=== PATIENT | female | born 1990 | race Caucasian/White ===

== ENCOUNTER 2020-08-09 08:03 | Outpatient (REF) | payer OTHER, SELFPAY | END 2020-08-09 08:04 | disposition home or self-care (01) | LOC: HO.LAB 08:03 | PROVIDERS: PCP Internal Medicine; Visit Provider Internal Medicine | DX: Z20.828 Contact with and (suspected) exposure to other viral communicable diseases (principal) | CPT/HCPCS: C9803; U0003 ==

== ENCOUNTER 2021-06-07 07:58 | Emergency (ER) | payer OTHER, SELFPAY ==
[2021-06-07 08:12] VITALS: BP 161/96; PULSE 84; RESP 16; TEMP 36.1; O2SAT 99; BMI 51.5
[2021-06-07 09:16] LABS: COVID-19 Test Negative (Negative); IDNOW Serial# 9DD0AD1C
--- NOTE | 2021-06-07 09:24 | ED.EAR ---
HPI - Ear Problem General Chief complaint: Ear Problems Stated complaint: hearing loss, congestion Time Seen by Provider: 06/07/21 08:32 Source: patient Mode of arrival: ambulatory Limitations: no limitations Related Data Previous Rx's Medication Instructions Recorded amoxicillin 875 mg-potassium 1 tab PO BID 7 Days #14 tab 12/20/20 clavulanate 125 mg tablet cetirizine 10 mg capsule (Zyrtec) 10 mg PO DAILY PRN #30 cap 12/20/20 ciprofloxacin 0.3 %-dexamethasone 4 drp OTIC (EARS) BID 7 Days #7.5 12/20/20 0.1 % ear drops,suspension ml (Ciprodex) amoxicillin 875 mg-potassium 1 tab PO BID #14 tab 06/07/21 clavulanate 125 mg tablet (Augmentin) ciprofloxacin 0.3 %-dexamethasone 4 drp OTIC (EARS) BID 7 Days #7.5 06/07/21 0.1 % ear drops,suspension ml (Ciprodex) Allergies Allergy/AdvReac Type Severity Reaction Status Date / Time TILAPIA Allergy Mild FACIAL RASH Uncoded 05/13/20 16:53 Review of Systems Review of Systems: Yes all other systems are reviewed and are negative Constitutional: Constitutional: Reports no additional constitutional complaints, Denies body ache(s), Denies chills, Denies fever(s), Denies headache(s) and Denies weakness Eyes: Eyes: Reports no additional eye complaints and Denies change in vision ENT: Reports system reviewed and no additional complaints, except as documented, Denies dizziness, Reports otalgia, Denies headache(s), Denies nasal congestion, Denies nasal discharge and Denies neck pain Cardiovascular: Cardiovascular: Reports no additional cardiovascular complaints, Denies chest pain, Denies leg edema and Denies dyspnea Respiratory: Respiratory: Reports no additional respiratory complaints, Denies cough and Denies dyspnea Gastrointestinal: Gastrointestinal: Reports no additional gastrointestinal complaints, Denies abdominal pain, Denies diarrhea, Denies nausea and Denies vomiting Genitourinary: Genitourinary: Reports no additional female genitourinary complaints and Denies urinary incontinence Musculoskeletal: Musculoskeletal: Reports no additional musculoskeletal complaints, Denies back pain, Denies arthralgias, Denies joint swelling, Denies neck pain, Denies numbness and Denies tingling Integumentary/Breasts: Skin/Breast: Reports system reviewed and no additional complaints, except as docu and Denies rash Neurologic: Reports system reviewed and no additional complaints, except as documented, Denies Abnormal speech present, Denies dizziness, Denies headache(s), Denies numbness, Denies tingling and Denies weakness PMFSH Past Medical History Attestation statement: The following information was validated with the patient. Source: old records reviewed and nursing notes reviewed Medical History No known health problems Social History Social History Advance Directives: No Physical Exam Vital Signs: Vital Signs: Last Vital Signs Temp 97.0 F 06/07/21 08:12 Pulse 84 06/07/21 08:12 Resp 16 06/07/21 08:12 BP 161/96 H 06/07/21 08:12 Pulse Ox 99 06/07/21 08:12 Body Mass Index 51.5 Const: General: cooperative, healthy appearing, comfortable and no acute distress Orientation/consciousness: patient oriented x3 Limitations: no limitations HENMT: Head: Yes normal to inspection Ears: hearing grossly normal bilaterally, TM normal on the left, mastoids normal, no periauricular adenopathy, Abnormal EAC present (Swelling, erythema) and TM abnormal (Bulging, erythema) General nose exam: Normal external nose present Face and sinus: Yes normal facial exam Mouth: Normal oral and palatal mucosa present Throat: Yes posterior oropharynx normal Eyes: General: appearance normal, both eyes and all related structures Pupils: Equal, round and reactive pupils present Neck: Neck: Yes normal visual inspection Chest: Chest palpation & inspection: normal inspection of the chest Resp: Effort & Inspection: normal respiratory effort Auscultation: clear to auscultation bilaterally Cardio: Rate: regular rate Rhythm: regular rhythm Peripheral pulses: Peripheral pulses 2+ throughout GI: Inspection: Yes normal to inspection Palpation (GI): Soft to palpation and nontender Auscultation: normal bowel sounds Back/Spine/Pelvis: Thoracic/Lumbar Spine: thoracic and lumbar spine normal to inspection Skin: General skin exam: no rashes or lesions noted Neuro: General: patient oriented x3, no focal motor deficits and normal sensation to monofilament Cranial nerves: Yes Equal, round and reactive pupils present Cognition (Neuro): normal cognition Speech: No Abnormal speech present Gait exam (Neuro): Normal gait present Motor exam (neuro): 5/5 motor strength present throughout Extrem: General: Yes normal to inspection Course Course Course Narrative: Right otitis media and otitis externa. Will need treatment. Low concern for mastoiditis with normal mastoid on exam. COVID test negative. Reviewed worrisome signs and symptoms of when to return to the emergency department. Comfortable discharge home. MDM - Ear Medical Records Attestation: I reviewed the patient's medical records. Lab Data Attestation: I reviewed the patient's lab results. Labs: Lab Results 06/07/21 Range/Units 08:49 COVID-19 (GABINO) Negative (Negative) COVID-19 Clin Com See Note Discharge Plan Discharge Clinical Impression: Otitis externa, Otitis media Patient Disposition: Home, Self-Care Instructions: Otitis Externa (ED), How to Use Ear Drops (ED), Ear Infection (ED) Additional Instructions: Your COVID test is negative Increase fluids, rest Follow-up with primary care as needed Prescriptions: New amoxicillin-pot clavulanate [Augmentin] 875-125 mg tablet 1 tab PO BID Qty: 14 RF: 0 ciprofloxacin-dexamethasone [Ciprodex] 0.3-0.1 % drops,suspension 4 drp otic (ears) BID 7 Days Qty: 7.5 RF: 0 No Action ciprofloxacin-dexamethasone [Ciprodex] 0.3-0.1 % drops,suspension 4 drp otic (ears) BID 7 Days Qty: 7.5 RF: 0 amoxicillin-pot clavulanate 875-125 mg tablet 1 tab PO BID 7 Days Qty: 14 RF: 0 Zyrtec 10 mg capsule 10 mg PO DAILY PRN (Reason: allergy symptoms) Qty: 30 RF: 0 Referrals: Glenna Burns MD [Primary Care Provider] - 2 days Interventions: ED Discharge Assessment Last Done: 06/07/21 09:26 Discharge Date/Time: 06/07/21 09:28
== END 2021-06-07 09:28 | disposition home or self-care (01) ==
PROVIDERS: Nurse Practitioner Family; Emergency Provider Emergency Medicine; PCP Internal Medicine
DX: H60.93 Unspecified otitis externa, bilateral (principal); H66.93 Otitis media, unspecified, bilateral; H91.93 Unspecified hearing loss, bilateral; Z20.822 Contact with and (suspected) exposure to COVID-19; Z79.899 Other long term (current) drug therapy
CPT/HCPCS: 36415; 87635; 99283

== ENCOUNTER 2021-06-17 16:41 | Emergency (ER) | payer OTHER, SELFPAY ==
[2021-06-17 17:01] VITALS: BP 144/100; PULSE 79; RESP 18; TEMP 36.7; O2SAT 98; BMI 51.5
--- NOTE | 2021-06-17 17:24 | ED_ITS ---
HPI - Ear Problem General Chief complaint: Ear Problems Stated complaint: ear pain Time Seen by Provider: 06/17/21 17:15 Source: patient Mode of arrival: ambulatory Limitations: no limitations History of Present Illness HPI Narrative: 31-year-old female presenting to the ED with complaints of worsening bilateral ear pain/swelling for the past 2 weeks worse today. Reports that she was seen here and prescribed antibiotic drops although they were too expensive 150 dollars therefore she did not purchase them and instead took the p.o. antibiotics Augmentin as prescribed. She reports that the p.o. antibiotics she finished a course although she is still having pain therefore she came here for further evaluation treatment. She denies any fevers, chills, neck pain/stiffness, cough, trouble swallowing or breathing or any other symptoms complaints or concerns at this time. MD Complaint: ear pain and ear discharge Location: bilateral Duration: constant Severity: severe Relieving factors: nothing Exacerbating factors: palpation Discharge from ear: yes - clear Associated symptoms ear: external ear tenderness and ear swelling Treatment prior to arrival: other (Was prescribed Augmentin on 06/07/2021 and finished course) Related Data Previous Rx's Medication Instructions Recorded amoxicillin 875 mg-potassium 1 tab PO BID 7 Days #14 tab 12/20/20 clavulanate 125 mg tablet cetirizine 10 mg capsule (Zyrtec) 10 mg PO DAILY PRN #30 cap 12/20/20 ciprofloxacin 0.3 %-dexamethasone 4 drp OTIC (EARS) BID 7 Days #7.5 12/20/20 0.1 % ear drops,suspension ml (Ciprodex) amoxicillin 875 mg-potassium 1 tab PO BID #14 tab 06/07/21 clavulanate 125 mg tablet (Augmentin) ciprofloxacin 0.3 %-dexamethasone 4 drp OTIC (EARS) BID 7 Days #7.5 06/07/21 0.1 % ear drops,suspension ml (Ciprodex) acetaminophen 300 mg-codeine 30 mg 1 tab PO Q8H PRN #10 tab 06/17/21 tablet cefdinir 300 mg capsule 300 mg PO BID 7 Days #14 cap 06/17/21 ofloxacin 0.3 % ear drops 10 drp OTIC (EARS) BID 14 Days ml 06/17/21 Allergies Allergy/AdvReac Type Severity Reaction Status Date / Time TILAPIA Allergy Mild FACIAL RASH Uncoded 05/13/20 16:53 Review of Systems Review of Systems: Constitutional : No Weight loss, No Fever, No Chills, No Night Sweats, No Fatigue, No Malaise ENT/Mouth : Positive bilateral ear pain/swelling/drainage, No Hearing loss, No Nasal Congestion, No Sinus Pain, No Hoarseness, No sore throat, No Rhinorrhea, No Swallowing Difficulty Eyes: No Eye Pain, No Swelling, No Redness, No Foreign Body, No Discharge, No Vision Changes Cardiovascular : No Chest Pain, No SOB, No Dyspnea on Exertion, No Orthopnea, No Edema, No Palpitations Respiratory : No Cough, No Sputum, No Wheezing, No Smoke Exposure, No Dyspnea Gastrointestinal : No Nausea, No Vomiting, No Diarrhea, No Constipation, No abdominal Pain, No Hematochezia, No Melena Genitourinary : no irregular bleeding, No Dysuria, No Urinary Frequency, No Hematuria, No Urinary Incontinence, No Urgency, No Flank Pain, No Urinary Flow Changes, No Hesitancy Musculoskeletal : No joint pain, No Myalgias, No Joint Swelling Skin : No Skin Lesions, No rash Neuro : No Weakness, No Numbness, No Paresthesias, No Loss of Consciousness, No Dizziness, No Headache Psych : No Anxiety/Panic, No Depression, No SI/HI/AH/VH, No Social Issues, Heme/Lymph: No Bruising, No Bleeding,No Lymphadenopathy Endocrine : No Polyuria, No Polydipsia, No Temperature Intolerance Yes all other systems are reviewed and are negative [facility] Past Medical History Attestation statement: The following information was validated with the patient. Medical History No known health problems Social History Social History Advance Directives: No Advance Directives Information Provided: Yes Patient : No Physical Exam Vital Signs: Vital Signs: Last Vital Signs Temp 98.0 F 06/17/21 17:01 Pulse 79 06/17/21 17:01 Resp 18 06/17/21 17:01 BP 144/100 H 06/17/21 17:01 Pulse Ox 98 06/17/21 17:01 Body Mass Index 51.5 vital signs have been reviewed as normal and appeared to be correct. Blood pressure hypertensive 144/100. Heart rate normal. Respiration rate normal. Temperature normal. Oxygen saturation normal. Appearance: Alert. Oriented X3. No acute distress. Head: Normal external exam. Normocephalic. Atraumatic. Eyes: PERRLA. EOMI. Conjunctiva and sclera normal. Eyelids normal. ENT: Patient with tenderness up patient to bilateral tragus and manipulation of the pinna with external ear canals edematous consistent with otitis externa. Although I am able to see bilateral tympanic membranes and they are intact no signs of otitis media. Pharynx normal. Uvula midline. Moist mucous membranes. No trismus noted. No drooling noted. No muffled voice noted. Neck: Normal inspection. Neck supple. FROM. No adenopathy. No meningeal signs. No neck mass noted. CVS: Normal heart rate and rhythm. Respiratory: No respiratory distress. Painless inspiration. Back: Full range of motion noted. No rashes/lesion/induration/fluctuance or signs of infection noted. Skin: Skin warm and dry. Normal skin color. Normal skin turgor. No rashes/lesions/lacerations noted. Extremities: Extremities exhibit normal range of motion. Extremities nontender. Neuro: Oriented X 3. No motor deficit. No sensory deficit. Reflexes normal. Normal steady gait. No focal neuro deficits noted. Vascular: + radial pulses Normal cap refill. No cyanosis noted to upper extremity nails Course Course Course Narrative: 31-year-old female presenting to the ED with complaints of worsening bilateral ear pain/swelling for the past 2 weeks worse today. Reports that she was seen here and prescribed antibiotic drops although they were too expensive 150 dollars therefore she did not purchase them and instead took the p.o. antibiotics Augmentin as prescribed. She reports that the p.o. antibiotics she finished a course although she is still having pain therefore she came here for further evaluation treatment. She denies any fevers, chills, neck pain/stiffness, cough, trouble swallowing or breathing or any other symptoms complaints or concerns at this time. On exam patient has bilateral otitis externa she does not need a ear wick at this time. Will DC home with a different prescription for otitis externa and I explained to the patient if the prescription is too expensive to have the pharmacist call us back so we can try to figure out a new prescription that is affordable to her or covered by her insurance. Along with instructions return if any new or worsening symptoms. Patient understands agrees with this plan. MDM - Ear Medical Records Attestation: I reviewed the patient's medical records. Discharge Plan Discharge Clinical Impression: Otitis externa Patient Disposition: Home, Self-Care Instructions: Otitis Externa (ED), How to Use Ear Drops (ED) Prescriptions: New ofloxacin 0.3 % drops 10 drp otic (ears) BID 14 Days RF: 0 cefdinir 300 mg capsule 300 mg PO BID 7 Days Qty: 14 RF: 0 acetaminophen-codeine 300-30 mg tablet 1 tab PO Q8H PRN (Reason: pain) Qty: 10 RF: 0 No Action amoxicillin-pot clavulanate [Augmentin] 875-125 mg tablet 1 tab PO BID Qty: 14 RF: 0 ciprofloxacin-dexamethasone [Ciprodex] 0.3-0.1 % drops,suspension 4 drp otic (ears) BID 7 Days Qty: 7.5 RF: 0 ciprofloxacin-dexamethasone [Ciprodex] 0.3-0.1 % drops,suspension 4 drp otic (ears) BID 7 Days Qty: 7.5 RF: 0 amoxicillin-pot clavulanate 875-125 mg tablet 1 tab PO BID 7 Days Qty: 14 RF: 0 Zyrtec 10 mg capsule 10 mg PO DAILY PRN (Reason: allergy symptoms) Qty: 30 RF: 0 Referrals: Kulwinder Macdonald [Physician] - 2 days (Call to make a follow-up appointment within next week) Stand Alone Forms: Work/School Release Print Language: Citizen Of [place]
== END 2021-06-17 17:49 | disposition home or self-care (01) ==
PROVIDERS: Emergency Provider Internal Medicine
DX: H60.93 Unspecified otitis externa, bilateral (principal); H92.03 Otalgia, bilateral; Z79.899 Other long term (current) drug therapy
CPT/HCPCS: 99283

== ENCOUNTER 2022-10-24 21:33 | Emergency (ER) | payer OTHER, SELFPAY ==
--- NOTE | ~2022-10-24 | US_ITS ---
EXAMINATION: US VENOUS WITH DOPPLER UPPER EXTREMITY, LEFT CLINICAL INFORMATION: Arm pain, question DVT COMPARISON: None TECHNIQUE: Ultrasound of the upper extremity is performed using compression sonography and color and pulse Doppler flow with assessment of augmentation of flow. There is also imaging and Doppler assessment of the jugular and subclavian veins. Spectral analysis with color-flow imaging is performed. FINDINGS: Respiratory variation, normal compression, and augmented flow are noted throughout the upper extremity including the axillary, brachial, cubital, and radial and ulnar veins. There is normal flow in the internal jugular and subclavian veins. There is no visible deep or superficial thrombophlebitis. If the patient's symptoms progress, a followup ultrasound in 5 -7 days might be of value to exclude proximal propagation from a nonvisualized distal arm vein. US/US venous duplex UE LT IMPRESSION: No DVT demonstrated in the left upper extremity.
[2022-10-24 22:13] VITALS: BP 147/80; PULSE 98; RESP 18; TEMP 36.8; O2SAT 97; BMI 56.5
--- NOTE | 2022-10-25 03:12 | ED.EXTPRO ---
HPI - Extremity Problem General Chief complaint: Extremity Problem Stated complaint: tightness in left arm Time Seen by Provider: 10/25/22 03:08 Source: patient Mode of arrival: ambulatory Limitations: no limitations History of Present Illness HPI Narrative: Patient no significant past medical history not on any estrogen and feeling tightness in the left arm since 19:00 yesterday had history of similar feeling a month ago which lasted for less than a day no swelling of the arm no trauma no neck pain muscular pain otherwise does feels tight inside the left arm no chest pain , no shortness patient father has a history of PE Related Data Previous Rx's Medication Instructions Recorded amoxicillin 875 mg-potassium 1 tab PO BID 7 days #14 tabs 12/20/20 clavulanate 125 mg tablet cetirizine 10 mg capsule (Zyrtec) 10 mg PO DAILY PRN allergy 12/20/20 symptoms #30 caps ciprofloxacin 0.3 %-dexamethasone 4 drp otic (ears) BID 7 days #7.5 12/20/20 0.1 % ear drops,suspension mL (Ciprodex) amoxicillin 875 mg-potassium 1 tab PO BID #14 tabs 06/07/21 clavulanate 125 mg tablet (Augmentin) ciprofloxacin 0.3 %-dexamethasone 4 drp otic (ears) BID 7 days #7.5 06/07/21 0.1 % ear drops,suspension mL (Ciprodex) acetaminophen 300 mg-codeine 30 mg 1 tab PO Q8H PRN pain #10 tabs 06/17/21 tablet cefdinir 300 mg capsule 300 mg PO BID otitis 7 days #14 06/17/21 caps ofloxacin 0.3 % ear drops 10 drp otic (ears) BID 14 days 06/17/21 ibuprofen 600 mg tablet 600 mg PO Q6H PRN fever or pain 10/25/22 #30 tabs Allergies Allergy/AdvReac Type Severity Reaction Status Date / Time TILAPIA Allergy Mild FACIAL RASH Uncoded 05/13/20 16:53 Review of Systems Review of Systems: Yes all other systems are reviewed and are negative PMFSH Past Medical History Medical History No known health problems Social History Social History Alcohol intake: never Smoked in Last 30 Days: No Use of substances other than those prescribed or required for medical reasons: No Advance Directives: No Advance Directives Information Provided: No Patient : No Physical Exam Vital Signs: Vital Signs: Last Vital Signs Temp 98.2 F 10/24/22 22:13 Pulse 98 10/24/22 22:13 Resp 18 10/24/22 22:13 BP 147/80 H 10/24/22 22:13 Pulse Ox 97 10/24/22 22:13 O2 Del Method 10/24/22 22:13 BMI result Body Mass Index 56.5 Appearance: Alert. Oriented X3. No acute distress. Neck: Normal inspection. Neck supple. No midline tenderness CVS: Normal heart rate and rhythm. Pulses normal. Respiratory: No respiratory distress. Equal air entry bilateral, Abdomen: Soft and nontender. Bowel sounds are present, Skin: Skin warm and dry. Normal skin color. Normal skin turgor. Extremities: No lower extremity edema. No calf tenderness, deep tenderness left arm no swelling noticed neurovascular intact Neuro: Oriented X 3. No motor deficit. No sensory deficit Extrem: Shoulder/upper arm images: 1. Deep tenderness left arm no swelling neurovascular intact Medical Decision Making Medical Decision Making MDM Narrative: Doppler negative for DVT in left arm clinically musculoskeletal pain discharge patient home on ibuprofen Differential Diagnosis Deep vein thrombosis/neurologic/musculoskeletal Discharge Plan Discharge Clinical Impression: Musculoskeletal pain of left upper extremity Patient Disposition: Home, Self-Care Instructions: Musculoskeletal Pain (ED) Additional Instructions: Pain in left arm is likely musculoskeletal take ibuprofen for pain Prescriptions: New ibuprofen 600 mg tablet 600 mg PO Q6H PRN (Reason: fever or pain) Qty: 30 0RF No Action amoxicillin-pot clavulanate [Augmentin] 875-125 mg tablet 1 tab PO BID Qty: 14 0RF ciprofloxacin-dexamethasone [Ciprodex] 0.3-0.1 % drops,suspension 4 drp otic (ears) BID 7 Days Qty: 7.5 0RF ofloxacin 0.3 % drops 10 drp otic (ears) BID 14 Days 0RF cefdinir 300 mg capsule 300 mg PO BID 7 Days Qty: 14 0RF acetaminophen-codeine 300-30 mg tablet 1 tab PO Q8H PRN (Reason: pain) Qty: 10 0RF ciprofloxacin-dexamethasone [Ciprodex] 0.3-0.1 % drops,suspension 4 drp otic (ears) BID 7 Days Qty: 7.5 0RF amoxicillin-pot clavulanate 875-125 mg tablet 1 tab PO BID 7 Days Qty: 14 0RF Zyrtec 10 mg capsule 10 mg PO DAILY PRN (Reason: allergy symptoms) Qty: 30 0RF Interventions: ED Discharge Assessment Last Done: 10/25/22 04:58 Discharge Date/Time: 10/25/22 04:58
== END 2022-10-25 04:58 | disposition home or self-care (01) ==
PROVIDERS: Emergency Provider Internal Medicine
DX: M79.18 Myalgia, other site (principal); M79.602 Pain in left arm
CPT/HCPCS: 93971; 99284

== ENCOUNTER 2022-12-21 21:42 | Emergency (ER) | payer OTHER, SELFPAY ==
[2022-12-21 21:45] VITALS: BP 136/94; PULSE 87; RESP 17; TEMP 36.5; O2SAT 99; BMI 54.9
[2022-12-21 22:08] LABS: MANUAL DIFF FLAG NO
[2022-12-21 22:09] LABS: Basophils Absolute Auto 0.1 X10*3/uL (0.0-0.2); Basophils Percent Auto 0.6 % (0-2); Eosinophils Absolute Auto 0.3 X10*3/uL (0.0-0.4); Eosinophils Percent Auto 2.4 % (0-4); Hematocrit 37.6 % (37.0-47.0); Hemoglobin 11.7 g/dl (12.0-16.0); Imm Gran Abs Auto 0.06 X10*3/uL (0.00-0.03); Imm Gran Pct Auto 0.5 % (0.0-0.4); Lymphocytes Absolute Auto 3.4 X10*3/uL (1.2-4.9); Lymphocytes Percent Auto 26.3 % (20-40); Mean Corpuscular HGB Conc 31.1 g/dl (31.0-35.0); Mean Corpuscular Hemoglobin 24.5 pg (27.0-33.0); Mean Corpuscular Volume 78.8 fL (80.0-98.0); Mean Platelet Volume 9.6 fL (9.4-12.3); Monocytes Absolute Auto 0.8 X10*3/uL (0.1-1.2); Neutrophils Absolute Auto 8.3 x10*3/uL (2.0-8.3); Neutrophils Percent Auto 64.2 % (45-73); Platelet Count 466 X10*3/uL (160-400); Red Blood Count 4.77 X10*6/uL (4.20-5.50); Red Cell Distribution Width 14.3 % (11.0-16.0); White Blood Count 12.9 X10*3/uL (4.8-10.8)
[2022-12-21 22:26] LABS: Alanine Aminotransferase 31 U/L (0-31); Albumin Level 4.2 g/dL (3.5-5.0); Alkaline Phosphatase 91 U/L (39-117); Anion Gap 13 (12-20); Aspartate Amino Transferase 22 U/L (5-31); Bilirubin Direct 0.1 mg/dL (0.0-0.5); Bilirubin Total 0.3 mg/dL (0.0-1.0); Blood Urea Nitrogen 12 mg/dL (9-16); Calcium 9.6 mg/dL (8.4-10.2); Carbon Dioxide 27 mmol/L (22-29); Chloride 105 mmol/L (96-108); Creatinine Clr Calc Pharmacy 156.9; Estimated Glomerular Filt Rate > 60; Glucose Random 122 mg/dL (60-115); Lipase 17 U/L (8-78); Potassium 4.3 mmol/L (3.3-5.1); Sodium 141 mmol/L (135-145); Total Protein 7.3 g/dL (6.5-8.0)
--- NOTE | 2022-12-22 00:20 | PC.NURSE ---
c/o abd pain, denies n/v h/o anxiety no apparent distress [id number]
[2022-12-22 00:21] LABS: Appearance Urine Clear; Color Urine Yellow; Glucose Urine UA Negative (Negative); Leukocyte Esterase Urine Negative (Negative); Nitrite Urine Negative (Negative); Specific Gravity - Urine 1.025 (1.005-1.025); Urine Blood Negative (Negative); Urine Ketones Trace mg/dL (Negative); Urine Protein Negative (Neg-Trace)
[2022-12-22 00:23] LABS: UPreg QC Valid YES; Urine Pregnancy NEGATIVE (NEGATIVE)
[2022-12-22 00:39] VITALS: BP 133/92; PULSE 84; RESP 15; TEMP 36.4; O2SAT 99
--- NOTE | 2022-12-22 00:39 | ED.GENADULT ---
HPI - General Adult General Chief complaint: Abdominal Pain Stated complaint: Abdominal/Left Side Pain Time Seen by Provider: 12/22/22 00:02 Source: patient, RN notes reviewed and old records reviewed Mode of arrival: ambulatory Limitations: no limitations History of Present Illness HPI narrative: 32-year-old female presents for evaluation of abdominal pain. Patient reports left-sided abdominal pain that started about 1 week ago. She has intermittent ?throbbing pains. She states ?it feels like baby cakes, but I know I am not . ? Denies associated symptoms including nausea vomiting, diarrhea, constipation Denies any fevers, chills Denies any previous abdominal surgeries. Currently she does not experience the pain. The patient does endorse increased anxiety Related Data Previous Rx's Medication Instructions Recorded amoxicillin 875 mg-potassium 1 tab PO BID 7 days #14 tabs 12/20/20 clavulanate 125 mg tablet cetirizine 10 mg capsule (Zyrtec) 10 mg PO DAILY PRN allergy 12/20/20 symptoms #30 caps ciprofloxacin 0.3 %-dexamethasone 4 drp otic (ears) BID 7 days #7.5 12/20/20 0.1 % ear drops,suspension mL (Ciprodex) amoxicillin 875 mg-potassium 1 tab PO BID #14 tabs 06/07/21 clavulanate 125 mg tablet (Augmentin) ciprofloxacin 0.3 %-dexamethasone 4 drp otic (ears) BID 7 days #7.5 06/07/21 0.1 % ear drops,suspension mL (Ciprodex) acetaminophen 300 mg-codeine 30 mg 1 tab PO Q8H PRN pain #10 tabs 06/17/21 tablet cefdinir 300 mg capsule 300 mg PO BID otitis 7 days #14 06/17/21 caps ofloxacin 0.3 % ear drops 10 drp otic (ears) BID 14 days 06/17/21 ibuprofen 600 mg tablet 600 mg PO Q6H PRN fever or pain 10/25/22 #30 tabs Allergies Allergy/AdvReac Type Severity Reaction Status Date / Time TILAPIA Allergy Mild FACIAL RASH Uncoded 05/13/20 16:53 Review of Systems Constitutional: Constitutional: Denies body ache(s), Denies chills, Denies fever(s) and Denies headache(s) ENT: Denies dizziness and Denies headache(s) Cardiovascular: Cardiovascular: Denies chest pain and Denies dyspnea Respiratory: Respiratory: Denies cough and Denies dyspnea Gastrointestinal: Gastrointestinal: Reports abdominal pain, Denies nausea and Denies vomiting Genitourinary: Genitourinary: Denies dysuria Musculoskeletal: Musculoskeletal: Denies back pain Neurologic: Denies dizziness and Denies headache(s) Psychiatric: Psychiatric: Reports anxiety PMFSH Past Medical History Medical History No known health problems Social History Social History Alcohol intake: never Advance Directives: No Advance Directives Information Provided: No Physical Exam ED Vital Signs: Vital Signs - 24 hr 12/21/22 21:45 Temperature 97.7 F Pulse Rate 87 Respiratory Rate 17 Blood Pressure 136/94 H Pulse Oximetry 99 Oxygen Delivery Method Room Air BMI result Body Mass Index 54.9 Const General: healthy appearing, comfortable, no acute distress, alert and awake Nutritional Appearance: well nourished Orientation/consciousness: patient oriented x3 HENMT Head: Yes normocephalic and Yes atraumatic Eyes Eyelids: Yes eyelids normal Conjunctivae: conjunctivae normal Sclerae: sclerae normal Corneas: corneas normal Pupils: Equal, round and reactive pupils present EOM: EOMs intact bilaterally Resp Effort & Inspection: normal respiratory effort, able to speak in complete sentences and not labored Cardio Rate: regular rate Rhythm: regular rhythm GI Other: No palpable masses Inspection: No distended Palpation (GI): Soft to palpation, not firm, nontender, no guarding and not rigid Auscultation: normoactive bowel sounds Skin General skin exam: no rashes or lesions noted and elasticity normal Neuro General: patient oriented x3 Cranial nerves: Yes Equal, round and reactive pupils present and Yes Bilaterally intact EOM present Cognition (Neuro): normal cognition Extrem Other: Moving all extremities well without any obvious deformities Medical Decision Making Medical Decision Making MDM Narrative: Patient sources increased anxiety related to buying a new home as well as being a single mother. Her labs are significant for a very mild leukocytosis. Otherwise labs are without any significant abnormalities. Patient abdomen is soft nondistended nontender and there are no palpable masses. Patient was reassured. Her symptoms may be related to muscle spasms that she describes as ?baby kicks. ? Patient expressed an interest in outpatient mental health counseling. I provided her a list with outpatient offices for counseling Differential Diagnosis Abdominal pain Anxiety GERD Gastroenteritis Lab Data 12/21/22 22:01 12/21/22 22:01 Labs: Lab Results 12/21/22 12/21/22 12/22/22 Range/Units 22:01 22:01 00:10 WBC 12.9 H (4.8-10.8) X10*3/uL RBC 4.77 (4.20-5.50) X10*6/uL Hgb 11.7 L (12.0-16.0) g/dl Hct 37.6 (37.0-47.0) % MCV 78.8 L (80.0-98.0) fL MCH 24.5 L (27.0-33.0) pg MCHC 31.1 (31.0-35.0) g/dl RDW 14.3 (11.0-16.0) % Plt Count 466 H (160-400) X10*3/uL MPV 9.6 (9.4-12.3) fL Immature Gran % (Auto) 0.5 H (0.0-0.4) % Neut % (Auto) 64.2 (45-73) % Lymph % (Auto) 26.3 (20-40) % Spink % (Auto) 6.0 (2-11) % Eos % (Auto) 2.4 (0-4) % Baso % (Auto) 0.6 (0-2) % Lymph # (Auto) 3.4 (1.2-4.9) X10*3/uL Spink # (Auto) 0.8 (0.1-1.2) X10*3/uL Eos # (Auto) 0.3 (0.0-0.4) X10*3/uL Baso # (Auto) 0.1 (0.0-0.2) X10*3/uL Abs Immat Gran (auto) 0.06 H (0.00-0.03) X10*3/uL Absolute Neuts (auto) 8.3 (2.0-8.3) x10*3/uL Absolute Nucleated RBC 0.000 (0.0-0.012) X10*3/uL Nucleated RBC % (auto) 0.0 (0.0-0.2) /100WBC Sodium 141 (135-145) mmol/L Potassium 4.3 (3.3-5.1) mmol/L Chloride 105 (96-108) mmol/L Carbon Dioxide 27 (22-29) mmol/L Anion Gap 13 (12-20) BUN 12 (9-16) mg/dL Creatinine 0.75 (0.5-1.4) mg/dL Estim Creat Clear Calc 156.9 Estimated GFR > 60 Random Glucose 122 H (60-115) mg/dL Calcium 9.6 (8.4-10.2) mg/dL Total Bilirubin 0.3 (0.0-1.0) mg/dL Direct Bilirubin 0.1 (0.0-0.5) mg/dL AST 22 (5-31) U/L ALT 31 (0-31) U/L Alkaline Phosphatase 91 (39-117) U/L Total Protein 7.3 (6.5-8.0) g/dL Albumin 4.2 (3.5-5.0) g/dL Lipase 17 (8-78) U/L Urine Color Yellow Urine Appearance Clear Urine pH 6.0 (5.0-9.0) Ur Specific [place] 1.025 (1.005-1.025) Urine Protein Negative (Neg-Trace) mg/dL Urine Glucose (UA) Negative (Negative) mg/dL Urine Ketones Trace (Negative) mg/dL Urine Blood Negative (Negative) Urine Nitrite Negative (Negative) Ur Leukocyte Esterase Negative (Negative) Urine Test (NEGATIVE) 12/22/22 Range/Units 00:10 WBC (4.8-10.8) X10*3/uL RBC (4.20-5.50) X10*6/uL Hgb (12.0-16.0) g/dl Hct (37.0-47.0) % MCV (80.0-98.0) fL MCH (27.0-33.0) pg MCHC (31.0-35.0) g/dl RDW (11.0-16.0) % Plt Count (160-400) X10*3/uL MPV (9.4-12.3) fL Immature Gran % (Auto) (0.0-0.4) % Neut % (Auto) (45-73) % Lymph % (Auto) (20-40) % Spink % (Auto) (2-11) % Eos % (Auto) (0-4) % Baso % (Auto) (0-2) % Lymph # (Auto) (1.2-4.9) X10*3/uL Spink # (Auto) (0.1-1.2) X10*3/uL Eos # (Auto) (0.0-0.4) X10*3/uL Baso # (Auto) (0.0-0.2) X10*3/uL Abs Immat Gran (auto) (0.00-0.03) X10*3/uL Absolute Neuts (auto) (2.0-8.3) x10*3/uL Absolute Nucleated RBC (0.0-0.012) X10*3/uL Nucleated RBC % (auto) (0.0-0.2) /100WBC Sodium (135-145) mmol/L Potassium (3.3-5.1) mmol/L Chloride (96-108) mmol/L Carbon Dioxide (22-29) mmol/L Anion Gap (12-20) BUN (9-16) mg/dL Creatinine (0.5-1.4) mg/dL Estim Creat Clear Calc Estimated GFR Random Glucose (60-115) mg/dL Calcium (8.4-10.2) mg/dL Total Bilirubin (0.0-1.0) mg/dL Direct Bilirubin (0.0-0.5) mg/dL AST (5-31) U/L ALT (0-31) U/L Alkaline Phosphatase (39-117) U/L Total Protein (6.5-8.0) g/dL Albumin (3.5-5.0) g/dL Lipase (8-78) U/L Urine Color Urine Appearance Urine pH (5.0-9.0) Ur Specific [place] (1.005-1.025) Urine Protein (Neg-Trace) mg/dL Urine Glucose (UA) (Negative) mg/dL Urine Ketones (Negative) mg/dL Urine Blood (Negative) Urine Nitrite (Negative) Ur Leukocyte Esterase (Negative) Urine Test NEGATIVE (NEGATIVE) Discharge Plan Discharge Clinical Impression: Abdominal pain Patient Disposition: Home, Self-Care Instructions: Abdominal Pain (ED) Additional Instructions: Your blood work was within normal limits. The vital signs were stable. Your abdominal exam is reassuring Follow-up with your primary doctor and outpatient counseling resources Prescriptions: No Action ibuprofen 600 mg tablet 600 mg PO Q6H PRN (Reason: fever or pain) Qty: 30 0RF amoxicillin-pot clavulanate [Augmentin] 875-125 mg tablet 1 tab PO BID Qty: 14 0RF ciprofloxacin-dexamethasone [Ciprodex] 0.3-0.1 % drops,suspension 4 drp otic (ears) BID 7 Days Qty: 7.5 0RF ofloxacin 0.3 % drops 10 drp otic (ears) BID 14 Days 0RF cefdinir 300 mg capsule 300 mg PO BID 7 Days Qty: 14 0RF acetaminophen-codeine 300-30 mg tablet 1 tab PO Q8H PRN (Reason: pain) Qty: 10 0RF ciprofloxacin-dexamethasone [Ciprodex] 0.3-0.1 % drops,suspension 4 drp otic (ears) BID 7 Days Qty: 7.5 0RF amoxicillin-pot clavulanate 875-125 mg tablet 1 tab PO BID 7 Days Qty: 14 0RF Zyrtec 10 mg capsule 10 mg PO DAILY PRN (Reason: allergy symptoms) Qty: 30 0RF
--- NOTE | 2022-12-22 01:11 | PC.NURSE ---
no apparent distress discharge instructions given and explained aox4 pt able to ambulate independently and safely
== END 2022-12-22 01:11 | disposition home or self-care (01) ==
PROVIDERS: Emergency Provider Emergency Medicine; PCP Internal Medicine
DX: R10.9 Unspecified abdominal pain (principal)
CPT/HCPCS: 36415; 80048; 80076; 81003; 81025; 83690; 85025; 99283; 99284

== ENCOUNTER 2023-02-02 11:45 | Outpatient (REF) | payer OTHER, SELFPAY ==
[2023-02-02 11:55] LABS: MANUAL DIFF FLAG NO
[2023-02-02 12:17] LABS: Basophils Absolute Auto 0.1 X10*3/uL (0.0-0.2); Basophils Percent Auto 0.8 % (0-2); Eosinophils Absolute Auto 0.4 X10*3/uL (0.0-0.4); Eosinophils Percent Auto 3.1 % (0-4); Hematocrit 39.9 % (37.0-47.0); Hemoglobin 12.2 g/dl (12.0-16.0); Imm Gran Abs Auto 0.04 X10*3/uL (0.00-0.03); Imm Gran Pct Auto 0.3 % (0.0-0.4); Lymphocytes Absolute Auto 3.2 X10*3/uL (1.2-4.9); Lymphocytes Percent Auto 27.7 % (20-40); Mean Corpuscular HGB Conc 30.6 g/dl (31.0-35.0); Mean Corpuscular Hemoglobin 24.2 pg (27.0-33.0); Mean Platelet Volume 10.3 fL (9.4-12.3); Monocytes Absolute Auto 0.6 X10*3/uL (0.1-1.2); Monocytes Percent Auto 5.1 % (2-11); Neutrophils Absolute Auto 7.3 x10*3/uL (2.0-8.3); Platelet Count 464 X10*3/uL (160-400); Red Blood Count 5.05 X10*6/uL (4.20-5.50); Red Cell Distribution Width 14.3 % (11.0-16.0); White Blood Count 11.6 X10*3/uL (4.8-10.8)
[2023-02-02 12:40] LABS: Estimated Average Glucose 114 mg/dL; Hemoglobin A1c % 5.6 %
[2023-02-02 12:53] LABS: Alanine Aminotransferase 28 U/L (0-31); Albumin Level 4.2 g/dL (3.5-5.0); Alkaline Phosphatase 88 U/L (39-117); Anion Gap 11 (12-20); Aspartate Amino Transferase 24 U/L (5-31); Bilirubin Total 0.5 mg/dL (0.0-1.0); Blood Urea Nitrogen 12 mg/dL (9-16); Carbon Dioxide 26 mmol/L (22-29); Chloride 106 mmol/L (96-108); Cholesterol 176 mg/dL; Estimated Glomerular Filt Rate > 60; Glucose Fasting 83 mg/dL (60-99); HDL Cholesterol 48 mg/dL; LDL Cholesterol Calculated 102 mg/dl; Potassium 4.3 mmol/L (3.3-5.1); Sodium 139 mmol/L (135-145); Total Protein 7.6 g/dL (6.5-8.0); Triglycerides 133 mg/dL
[2023-02-02 13:10] LABS: Vitamin D 25-OH Total 20.9 ng/mL (>30)
== END 2023-02-02 11:46 | disposition home or self-care (01) ==
LOC: HO.LAB 11:45
PROVIDERS: PCP Nurse Practitioner Family; Visit Provider Nurse Practitioner Family
DX: Z13.0 Encounter for screening for diseases of the blood and blood-forming organs and certain disorders involving the immune mechanism (principal); Z13.21 Encounter for screening for nutritional disorder; Z13.29 Encounter for screening for other suspected endocrine disorder; Z13.220 Encounter for screening for lipoid disorders; Z83.3 Family history of diabetes mellitus
CPT/HCPCS: 36415; 80053; 80061; 82306; 83036; 84443; 85025

== ENCOUNTER 2023-02-09 08:07 | Outpatient (REF) | payer OTHER, SELFPAY ==
[2023-02-09 09:07] LABS: Iron 32 mcg/dL (30-160); Percent Iron Saturation 8 % (15-50); Total Iron Binding Capacity 378 mcg/dL (228-428); Unsaturated Iron Binding 346 ug/dL
[2023-02-09 09:15] LABS: Ferritin 48 ng/mL (10-122); Vitamin D 25-OH Total 25.5 ng/mL (>30)
== END 2023-02-09 08:08 | disposition home or self-care (01) ==
LOC: HO.LAB 08:07
PROVIDERS: PCP Internal Medicine; Visit Provider Nurse Practitioner Family
DX: E55.9 Vitamin D deficiency, unspecified (principal); D50.9 Iron deficiency anemia, unspecified
CPT/HCPCS: 36415; 82306; 82728; 83540

== ENCOUNTER → 2023-03-12 08:20 | Outpatient (BNVA) | payer OTHER, SELFPAY | PROVIDERS: PCP Internal Medicine; Visit Provider Physician Assistant Surgical ==

== ENCOUNTER 2023-03-22 09:23 | Outpatient (AMB) | payer OTHER, SELFPAY ==
--- NOTE | 2023-03-22 09:24 | A.OFFVIS_ITS ---
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 She has gained more weight than she is happy with and has reached the point where she is feeling more ready to do something about it she recently did the paperwork for the intake at the bariatric weight management program and she is feeling more motivated to try and deal with this because she wants to be around for her kids. She is not sexually active and does not need control at this time she does get regular periods she is having lots more negative side effects from her weight including back ache and skin challenges from her thighs rubbing etc. she feels it is time to do something about it. Has tried so many times in the past and has become discouraged when she has not seen success. 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 [facility] Medical History (Updated 03/22/23 @ 10:31 by Lorna Moreno CNM) Family history of diabetes mellitus Surgical History History of D&C Family History Other Family history of diabetes mellitus Social History Household Members: Family and Children Housing: House Alcohol intake: current Alcohol intake frequency: holidays/special occasions only Patient Tobacco Use Status: Never used Tobacco e-Cigarette/Vaping Use: Never Used Second Hand Smoke Exposure: No service: No Current occupational status: employed Current occupation: [employer] Cognitive needs: No Hearing needs: No Vision needs: No Female Reproductive History Menstrual Age of Menarche: 10 Date of last menstrual period: 03/15/23 Total pregnancies: 3 Number of Living Children: 3 Date of last pap smear: 07/07/19 (wnl) History of abnormal pap smear: Yes (ASCUS) Physical Exam Vital Signs: Last Vital Signs BP 128/84 03/22/23 09:25 BMI result Body Mass Index 55.1 Const General: healthy appearing, comfortable, no acute distress, well developed and alert Nutritional Appearance: average body habitus Orientation/consciousness: patient oriented x3 Limitations: no limitations HEENT Head: Yes normocephalic Neck Neck: Yes normal visual inspection Chest Chest palpation & inspection: normal inspection of the chest Breast/axilla inspection: normal inspection of the breasts and normal inspection of the axillae Breast/axilla palpation: normal palpation of the breasts and normal palpation of the axillae Resp Effort & Inspection: normal respiratory effort GI Inspection: Yes normal to inspection, No Abdominal wall edema and No distended Palpation (GI): Soft to palpation and nontender General: Yes bladder normal to palpation External Female Exam: normal external appearance and normal appearance of the urethra Speculum Exam - Vagina: normal appearance of the vagina, normal palpation and normal vaginal discharge Speculum Exam - Cervix: normal appearance of the cervix, normal palpation and nontender Bimanual exam- vagina & uterus: normal bimanual exam, normal palpation, uterine size normal, bladder normal to palpation, consistency normal, normal palpation, uterine mobility normal, uterine shape normal, No Cervical tenderness present, non-tender and no cervical motion tenderness Bimanual Exam- Adnexa, other: normal adnexae, no masses, normal and No adnexal tenderness Neuro General: patient oriented x3 Assessment & Plan Assessment & Plan (1) Morbid obesity with BMI of 50.0-59.9, adult: Code(s): E66.01 - Morbid (severe) obesity due to excess calories; Z68.43 - Body mass index [BMI] 50.0-59.9, adult (2) Family history of diabetes mellitus: Code(s): Z83.3 - Family history of diabetes mellitus (3) Hx of abnormal cervical Pap smear: Comment: ascus in past Code(s): Z87.42 - Personal history of other diseases of the female genital tract (4) Screen for sexually transmitted diseases: Code(s): Z11.3 - Encounter for screening for infections with a predominantly sexual mode of transmission (5) Breast cancer screening: Code(s): Z12.39 - Encounter for other screening for malignant neoplasm of breast Plan -----Discussed in this visit the following: healthy balanced diet, regular and consistent exercise, getting recommended health screens, doing the best she can for her particular health concerns, kegel exercises, pap smear screening and followup recommendations, mammography screening and SBE, normal changes in cycles in her life stage--- .---Discussed with pt, her wt, and BMI, and her goals. Discussed ideal dietary guidelines to assist in weight loss, focusing on vegetables and fruits and lean proteins, and minimizing fats and carbohydrates and eliminating empty calories. Discussed exercise, including regular, sufficient, and consistent cardio based exercise, and weight bearing exercise. Discussed barriers to exercise and healthy eating, and possible ways of establishing newer healthier habits. Discussed supports to help in her efforts, and timing issues. Discussed adequate sleep, and ways to achieve this. Discussed adequate water intake.-- Lengthy discussion of all of the above and the lifelong challenges of being over ones ideal weight and the emotional bridges to be crossed in embarking on trying to change life habits in order to be healthier and the rationale for doing so. Discussed possible supports in barriers and challenges along the way as well I wished her luck on her journey she is starting with the weight loss program now and I wished her all the success in the world in her venture. She is not sexually active and does not need control right now STI testing was done just because of the previous positive testing in the past at [facility] after previous testing had been negative so just to rule things out. Since she has not been sexually active since conception of her youngest she does not need HIV testing in other testing. She was in fact surprised that her hemoglobin A1c and fasting glucose was normal because of her family history of diabetes and the acanthosis nigricans that she has been noticing. I discussed with her that sometimes testing may not be all that sensitive and she should pay attention to also was going on in her body and losing the weight is still super important to do at this time of her life to prevent future problems. Wished her every success in her efforts to become healthier Orders: Orders Bacterial Vaginosis Panel Today Z01.419 - Encounter for gynecological examination (general) (routine) without abnormal findings CT NG by PCR Today Z01.419 - Encounter for gynecological examination (general) (routine) without abnormal findings Pap Smear Today Z01.419 - Encounter for gynecological examination (general) (routine) without abnormal findings Coding Level of Care Code New Pt Prev Care [id number] Diagnoses Morbid obesity with BMI of 50.0-59.9, adult E66.01; Z68.43 Family history of diabetes mellitus Z83.3 Hx of abnormal cervical Pap smear Z87.42 Screen for sexually transmitted diseases Z11.3 Breast cancer screening Z12.39
[2023-03-22 09:25] VITALS: BP 128/84; BMI 55.1
== END 2023-03-22 10:32 | disposition home or self-care (01) ==
LOC: HO.HWS 09:23
PROVIDERS: PCP Internal Medicine; Visit Provider Advanced Practice Midwife
DX: Z01.419 Encounter for gynecological examination (general) (routine) without abnormal findings (principal); E66.01 Morbid (severe) obesity due to excess calories; Z68.43 Body mass index [BMI] 50.0-59.9, adult; Z83.3 Family history of diabetes mellitus; Z87.42 Personal history of other diseases of the female genital tract; Z11.3 Encounter for screening for infections with a predominantly sexual mode of transmission; Z12.39 Encounter for other screening for malignant neoplasm of breast
CPT/HCPCS: 99385

== ENCOUNTER 2023-03-22 09:23 | Outpatient (REF) | payer OTHER, SELFPAY ==
[2023-03-23 02:40] LABS: CT PCR NOT DETECTED (Not Detect.); NG PCR NOT DETECTED (Not Detect.)
[2023-03-23 13:20] LABS: BV Int Neg Control Negative (Negative); BV Int Pos Control Positive (Positive)
[2023-03-30 06:10] LABS: HPV mRNA E6/E7 rflx Not Detected (Not Detected)
== END 2023-03-22 09:24 | disposition home or self-care (01) ==
LOC: HO.LNP 09:23
PROVIDERS: PCP Internal Medicine; Visit Provider Advanced Practice Midwife
DX: Z01.419 Encounter for gynecological examination (general) (routine) without abnormal findings (principal); Z11.51 Encounter for screening for human papillomavirus (HPV); E66.01 Morbid (severe) obesity due to excess calories; Z68.43 Body mass index [BMI] 50.0-59.9, adult; Z83.3 Family history of diabetes mellitus; Z87.42 Personal history of other diseases of the female genital tract
CPT/HCPCS: 0353U; 87480; 87510; 87624; 87660; 88142

== ENCOUNTER 2023-04-09 08:23 | Outpatient (AMB) | payer OTHER, SELFPAY ==
--- NOTE | 2023-04-09 08:25 | A.OFFVIS_ITS ---
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 She was in our SWL program at about 280 lbs in 2017 and stopped after 2 weeks and 8 lb weight loss. She feels more ready now. Her goal is to have more energy and feel better. She reports first being concerned about her weight since childhood, worse about 1 year ago. She has tried multiple methods of weight loss including WMP without permanent results. She lives with her 3 daughters, 13, 10 and 8 yrs old.She works 5 days per week, 8:30 - 4:30 pm. She wakes at: 4:30 - alarm set for 6am, bed at falls asleep on couch watching TV or reading - no particular bed time. 10 pm. Breakfast: 8:30 am - coffee 1 cup with syrup and splenda and cream. Skips breakfast 4d/week. If eats has bagel cream cheese Lunch: 12 - 2pm - may have leftover, mostly power bowl from [employer] water. Dinner: 6pm - 8pm - pasta with ground meat - silvana or red sauce. Vegetables maybe once per week. After dinner: ocassionally has crackers or jello or puding in the MIDDLE OF THE NIGHT Other snacks: afternoon - one baked sweet - 3 pm Liquids:1-2 times per month soda or juice Alcohol intake: none, tobacco: none, marijuana: none Exercise:no routine, has a treadmill - doesn't want to use it now. Last mammogram:never Last pap smear: control method: BHUMI: 5 ESS:6 GERD0: QOL:102 PFSH Medical History (Updated 04/09/23 @ 08:57 by Rachel Mcmillan PA-C) Family history of diabetes mellitus Surgical History History of D&C Family History Other Family history of diabetes mellitus Social History Household Members: Family and Children Housing: House Alcohol intake: current Alcohol intake frequency: holidays/special occasions only Patient Tobacco Use Status: Never used Tobacco e-Cigarette/Vaping Use: Never Used Second Hand Smoke Exposure: No service: No Current occupational status: employed Current occupation: [employer] Cognitive needs: No Hearing needs: No Vision needs: No Female Reproductive History Menstrual Age of Menarche: 10 Physical Exam Vital Signs: Last Vital Signs Temp 96.3 F L 04/09/23 08:31 Pulse 66 04/09/23 08:31 BP 144/81 H 04/09/23 08:31 Pulse Ox 96 04/09/23 08:31 Oxygen Delivery Method Room Air 04/09/23 08:31 BMI result Body Mass Index 53.9 Const General: cooperative, no acute distress and well developed Nutritional Appearance: obese Orientation/consciousness: patient oriented x3 HEENT Head: Yes normal to inspection Neck Neck: Yes normal visual inspection Thyroid: Thyroid normal Resp Effort & Inspection: normal respiratory effort Auscultation: clear to auscultation bilaterally Cardio Rate: regular rate Rhythm: regular rhythm Heart sounds: S1 normal heart sound present, S2 normal heart sound present and no murmurs GI Inspection: No distended and Yes obesity Palpation (GI): Soft to palpation, nontender and no guarding Skin General skin exam: no rashes or lesions noted and other (warm and dry) Wounds: no wounds Hair: normal Neuro General: patient oriented x3 Extrem General: Yes no pedal edema and Yes no calf tenderness Psych Attitude: cooperative Thought process: Normal thought process present Thought content: Normal thought content present Insight: Good insight present (Psych) Judgement: Good judgement present (Psych) Assessment & Plan Assessment & Plan (1) Morbid obesity with BMI of 50.0-59.9, adult: Code(s): E66.01 - Morbid (severe) obesity due to excess calories; Z68.43 - Body mass index [BMI] 50.0-59.9, adult Plan: This is a 32 yo woman with morbidly obese who will start SWL program to prepare for bariatric surgery. Blood work, h pylori , CXR, ECG, Abd ULS and UGI have been ordered. She is being scheduled for RD and BH initial consultations. She will start SWL classes and watch at 3 classes before her next appt with Yasmine. Pt understands she needs to make a lot of lifestyle chnages. Presently does not take Vit D - reminded her to take it daily. Other blood work in computer from January 2023 1. Adequate sleep of 7-8 hours per night discussed - needs specific bedtime and bedtime routine 2. Healthy meal plan - stop skipping meals and stop all sweetened drinks and fast food All meals/MR's need to take 20 minutes to complete coffee 9 am - 30 gram shake 12 pm - 30 gram shake 3 pm- bar or yogurt 6-7 pm- dinner of 6 oz lean protein, 8 oz vegetable, 1 serving fruit Exercise - Cardio 5 d week MM or TBP or LS 2 miel videos The importance of avoiding and breast feeding for at least 18 months after bariatric surgery was discussed in the information session and was reinforced today. Pt will purchase body composition analyzer (recommended list given to patient) and weight herself weekly. Next appt with me in 3 weeks. Text me with any questions and weekly weights. Patient is morbidly obese and is not considered stable at this time.?I spent a total of 60 minutes reviewing/updating records, examining the patient and counseling the patient on weight management as detailed above. Orders: Orders Vitamin B12 and Folate Today E66.01 - Morbid (severe) obesity due to excess calories, Z01.818 - Encounter for other preprocedural examination, Z68.43 - Body mass index [BMI] 50.0-59.9, adult Insulin Today E66.01 - Morbid (severe) obesity due to excess calories, Z01.818 - Encounter for other preprocedural examination, Z68.43 - Body mass index [BMI] 50.0-59.9, adult PTHI Today E66.01 - Morbid (severe) obesity due to excess calories, Z01.818 - Encounter for other preprocedural examination, Z68.43 - Body mass index [BMI] 50.0-59.9, adult Vitamin A Today E66.01 - Morbid (severe) obesity due to excess calories, Z01.818 - Encounter for other preprocedural examination, Z68.43 - Body mass index [BMI] 50.0-59.9, adult Vitamin B1 Today E66.01 - Morbid (severe) obesity due to excess calories, Z01.818 - Encounter for other preprocedural examination, Z68.43 - Body mass index [BMI] 50.0-59.9, adult ECG 12 lead EKG Today E66.01 - Morbid (severe) obesity due to excess calories, Z01.818 - Encounter for other preprocedural examination, Z68.43 - Body mass index [BMI] 50.0-59.9, adult FL upper GI w air Today E66.01 - Morbid (severe) obesity due to excess calories, Z01.818 - Encounter for other preprocedural examination, Z68.43 - Body mass index [BMI] 50.0-59.9, adult H Pylori Breath Test Today E66.01 - Morbid (severe) obesity due to excess calories, Z01.818 - Encounter for other preprocedural examination, Z68.43 - Body mass index [BMI] 50.0-59.9, adult US abdomen comp w elastography Today E66.01 - Morbid (severe) obesity due to excess calories, Z01.818 - Encounter for other preprocedural examination, Z68.43 - Body mass index [BMI] 50.0-59.9, adult XR chest 2V Today E66.01 - Morbid (severe) obesity due to excess calories, Z01.818 - Encounter for other preprocedural examination, Z68.43 - Body mass index [BMI] 50.0-59.9, adult Referrals Behavioral Health Referral E66.01 - Morbid (severe) obesity due to excess calories, Z01.818 - Encounter for other preprocedural examination, Z68.43 - Body mass index [BMI] 50.0-59.9, adult Nutrition/Dietitian Referral E66.01 - Morbid (severe) obesity due to excess calories, Z01.818 - Encounter for other preprocedural examination, Z68.43 - Body mass index [BMI] 50.0-59.9, adult Coding Level of Care Code New Pt Level 5 (54403) Diagnoses Morbid obesity with BMI of 50.0-59.9, adult E66.01; Z68.43
[2023-04-09 08:31] VITALS: BP 144/81; PULSE 66; TEMP 35.7; O2SAT 96; BMI 53.9
== END 2023-04-09 09:26 | disposition home or self-care (01) ==
PROVIDERS: PCP Internal Medicine; Visit Provider Physician Assistant
DX: E66.01 Morbid (severe) obesity due to excess calories (principal); Z68.43 Body mass index [BMI] 50.0-59.9, adult
CPT/HCPCS: 99205

== ENCOUNTER → 2023-04-09 08:23 | Outpatient (BNVA) | payer OTHER, SELFPAY | PROVIDERS: PCP Internal Medicine; Visit Provider Physician Assistant | DX: E66.01 Morbid (severe) obesity due to excess calories (principal); Z68.43 Body mass index [BMI] 50.0-59.9, adult | CPT/HCPCS: 99202 ==

== ENCOUNTER 2023-04-11 07:37 | Outpatient (REF) | payer OTHER, SELFPAY ==
[2023-04-11 09:45] LABS: Iron 33 mcg/dL (30-160); Percent Iron Saturation 9 % (15-50); Total Iron Binding Capacity 376 mcg/dL (228-428); Unsaturated Iron Binding 343 ug/dL
[2023-04-11 10:00] LABS: Ferritin 57 ng/mL (10-122); Insulin 25 uU/mL (2-29)
[2023-04-11 10:13] LABS: Folate 12.2 ng/mL (> or = 4.0); Vitamin B12 551 pg/mL (200-900)
[2023-04-13 16:53] LABS: Calcium (PTHI) 9.6 mg/dL (8.6-10.2); PTHI 58 pg/mL (16-77)
[2023-04-16 12:29] LABS: Vitamin B1 <6 nmol/L (8-30)
[2023-04-17 04:19] LABS: Vitamin A 32 mcg/dL (38-98)
== END 2023-04-11 07:38 | disposition home or self-care (01) ==
LOC: HO.LAB 07:37
PROVIDERS: PCP Internal Medicine; Visit Provider Physician Assistant
DX: Z01.818 Encounter for other preprocedural examination (principal); E66.01 Morbid (severe) obesity due to excess calories; Z68.43 Body mass index [BMI] 50.0-59.9, adult
CPT/HCPCS: 36415; 82607; 82728; 82746; 83525; 83540; 83970; 84425; 84590

== ENCOUNTER 2023-04-14 08:48 | Outpatient (REF) | payer OTHER, SELFPAY ==
--- NOTE | ~2023-04-14 | XR_ITS ---
EXAMINATION: XR CHEST 2 VIEWS CLINICAL INFORMATION: Preprocedural examination. COMPARISON: Chest radiographs dated 05/05/2019. TECHNIQUE: Frontal and lateral views of the chest were obtained. FINDINGS: The heart, great vessels, pulmonary vasculature and mediastinum are normal. The lungs show no focal infiltrate, effusion or pneumothorax. There is no acute osseous abnormality. XR/XR chest 2V IMPRESSION: No active cardiopulmonary disease.
== END 2023-04-14 08:49 | disposition home or self-care (01) ==
LOC: HO.XRAY 08:48
PROVIDERS: PCP Internal Medicine; Visit Provider Physician Assistant
DX: Z01.818 Encounter for other preprocedural examination (principal); E66.01 Morbid (severe) obesity due to excess calories; Z68.43 Body mass index [BMI] 50.0-59.9, adult
CPT/HCPCS: 71046

== ENCOUNTER 2023-04-25 08:02 | Outpatient (REF) | payer OTHER, SELFPAY ==
--- NOTE | ~2023-04-25 | US_ITS ---
EXAMINATION: US COMPLETE ABDOMEN WITH LIVER ELASTOGRAPHY CLINICAL INFORMATION: Morbid obesity COMPARISON: None available. TECHNIQUE: Real-time imaging of the abdominal viscera. Noninvasive ultrasound liver fibrosis assessment is performed using Caleb ElastPQ point quantification shear wave elastography (2D-SWE) with a C5-2 MHz transducer. Multiple elastography samples are obtained. FINDINGS: PANCREAS: Normal. The visualized pancreatic head and body are normal in appearance. The remainder of the pancreas is obscured from visualization by the overlying bowel gas. ABDOMINAL AORTA: The proximal, middle, and distal aortic segments are normal in caliber. INFERIOR VENA CAVA: Visualized portions are normal. LIVER: Diffusely increased echogenicity. Borderline enlargement. Normal pathology. No focal lesion or intrahepatic biliary duct dilatation. The right lobe measures 16.7 cm in length. The left lobe measures 9.9 cm in length. Portal flow is hepatopedal Shear wave liver elastography median stiffness is 1.89 m/s (reference: normal median stiffness is 1.3 m/s or less). IQR/median stiffness to assess sampling precision is 0.1 (reference: good quality data set is IQR/median stiffness of 0.15 or less). GALLBLADDER: Normal. The gallbladder is physiologically distended without evidence of stones, sludge, polyps, wall thickening or pericholecystic fluid. COMMON BILE DUCT: Normal in caliber measuring 0.6 cm in diameter. RIGHT KIDNEY: Normal. No hydronephrosis. No renal calculi or focal parenchymal lesions. The kidney measures 12 cm in maximum dimension. LEFT KIDNEY: Normal. No hydronephrosis. No renal calculi or focal parenchymal lesions. The kidney measures 11.8 cm in maximum dimension. SPLEEN: Normal. The spleen measures 11 cm in maximum dimension. FREE FLUID: None. US/US abdomen comp w elastography IMPRESSION: 1. Hepatic steatosis. 2. Liver elastography: Measurements are suggestive of compensated advanced chronic liver disease but need further test for confirmation. REFERENCE: Society of Radiologists in Ultrasound Liver Stiffness Thresholds (2020): LIVER STIFFNESS THRESHOLDS: *Liver Stiffness equal or less than 1.3 m/s: High probability of being normal. *Liver Stiffness less than 1.7 m/s: In the absence of other known clinical signs, rules out compensated advanced chronic liver disease. *Liver Stiffness 1.7-2.1 m/s: Suggestive of compensated advanced chronic liver disease but need further test for confirmation. *Liver Stiffness over 2.1 m/s: Rules in compensated advanced chronic liver disease. *Liver Stiffness over 2.4 m/s: Suggestive of clinically significant portal hypertension. QUALITY OF DATA SET: *IQR/Median value equal or less than 0.15 implies a quality data set. *IQR/Median value over 0.15 implies a poor quality data set. SIGNIFICANT CHANGE FROM PRIOR EXAM: Significant change if liver stiffness measurement is 10% or greater from prior exam. OTHER CONSIDERATIONS: The stage of liver fibrosis may be overestimated in the setting of acute hepatitis, liver inflammation, elevated liver function tests, hepatic vascular congestion, obstructive cholestasis, non-fasting state, and infiltrative diseases such as amyloidosis and lymphoma. In some patients with NAFLD, the liver stiffness thresholds for compensated advanced chronic liver disease may be lower. In causes other than viral hepatitis and NAFLD, liver stiffness thresholds are not well established.
--- NOTE | 2023-04-25 08:39 | ECG_ITS ---
Test Reason : PREOP Blood Pressure : / mmHG Vent. Rate : 068 BPM Atrial Rate : 068 BPM P-R Int : 156 ms QRS Dur : 090 ms QT Int : 424 ms P-R-T Axes : 017 -15 000 degrees QTc Int : 450 ms Normal sinus rhythm Normal ECG When compared with ECG of 05-MAY-2019 13:07, No significant change was found Referred By: Rachel Mcmillan Electronically Signed By:EDGAR DIALLO
== END 2023-04-25 08:03 | disposition home or self-care (01) ==
LOC: HO.US 08:02
PROVIDERS: PCP Internal Medicine; Visit Provider Physician Assistant
DX: Z01.818 Encounter for other preprocedural examination (principal); E66.01 Morbid (severe) obesity due to excess calories; Z68.43 Body mass index [BMI] 50.0-59.9, adult
CPT/HCPCS: 76705; 76981; 93005

== ENCOUNTER → 2023-04-27 14:18 | Outpatient (BNVA) | payer OTHER, SELFPAY | PROVIDERS: PCP Internal Medicine; Visit Provider Dietitian, Registered | DX: E66.9 Obesity, unspecified (principal); Z68.43 Body mass index [BMI] 50.0-59.9, adult | CPT/HCPCS: 97802 ==

== ENCOUNTER 2023-05-14 08:20 | Outpatient (AMB) | payer OTHER, SELFPAY ==
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
== END 2023-05-14 10:06 | disposition home or self-care (01) ==
PROVIDERS: PCP Internal Medicine; Visit Provider Counselor Mental Health
DX: F43.20 Adjustment disorder, unspecified (principal); E66.01 Morbid (severe) obesity due to excess calories; Z68.43 Body mass index [BMI] 50.0-59.9, adult
CPT/HCPCS: 90791

== ENCOUNTER → 2023-05-14 08:20 | Outpatient (BNVA) | payer OTHER, SELFPAY | PROVIDERS: PCP Internal Medicine; Visit Provider Counselor Mental Health ==

== ENCOUNTER → 2023-05-28 15:17 | Outpatient (BNVA) | payer OTHER, SELFPAY | PROVIDERS: PCP Internal Medicine; Visit Provider Dietitian, Registered | DX: E66.01 Morbid (severe) obesity due to excess calories (principal); Z68.42 Body mass index [BMI] 45.0-49.9, adult; Z83.3 Family history of diabetes mellitus; Z71.3 Dietary counseling and surveillance | CPT/HCPCS: 97803 ==

== ENCOUNTER 2023-06-12 08:23 | Outpatient (REF) | payer OTHER, SELFPAY ==
--- NOTE | ~2023-06-12 | FL_ITS ---
EXAMINATION: XR FLUOROSCOPY UPPER GI WITH AIR CLINICAL INFORMATION: Obesity, excessive caloric intake, preop bariatric. COMPARISON: No prior exam. TECHNIQUE: Fluoroscopic air contrast upper GI examination was performed utilizing standard techniques with thin and thick barium and effervescent granules. Numerous spot images were obtained, as well as numerous image hold fluoroscopic runs. FINDINGS: Lateral cine images of the oropharynx and hypopharynx demonstrate normal swallow mechanism with normal epiglottic inversion and soft palate elevation. No tracheal penetration, glottic or subglottic aspiration identified. No nasopharyngeal reflux present. Hypopharyngeal structures appear normal without evidence of mass or diverticulum. There was no significant cricopharyngeal achalasia. Dual and single contrast images of the esophagus demonstrate normal caliber, contour, and mucosal pattern. No evidence of stricture, mass, or ulcerations identified. Primary esophageal peristalsis was normal, followed by mild nonpropulsive tertiary contractions, consistent with mild dysmotility. Small type I hiatus hernia. Moderate gastroesophageal reflux noted to the approximate thoracic inlet. No mucosal changes. Dual contrast and single contrast images of the stomach demonstrated suboptimal coating of the lesser curvature. Otherwise, normal contour and mucosal pattern without evidence of mass, ulceration, or other abnormality. Contrast freely passed into the gastric antrum and duodenal bulb without delay. Single and air-contrast images of the duodenal bulb demonstrate no abnormality. The duodenal sweep has a normal appearance, course, and mucosal fold appearance. The imaged proximal jejunum has a normal fold pattern and caliber. FLUOROSCOPY TIME: 4 minutes, 3 seconds Number of Spot Images: 8 fluoroscopic image hold cine runs obtained; 5 fluoroscopic spot images taken; 4 fluoroscopic spot image holds. DOSE AREA PRODUCT: 10.67 mGy-m2 (milligray-meter squared) FL/FL upper GI w air IMPRESSION: 1. Small hiatus hernia, type I. 2. Moderate gastroesophageal reflux, to the level of the thoracic inlet. No mucosal changes. 3. Mild esophageal dysmotility.
== END 2023-06-12 08:24 | disposition home or self-care (01) ==
LOC: HO.XRAY 08:23
PROVIDERS: PCP Internal Medicine; Visit Provider Physician Assistant
DX: Z01.818 Encounter for other preprocedural examination (principal); E66.01 Morbid (severe) obesity due to excess calories; Z68.43 Body mass index [BMI] 50.0-59.9, adult
CPT/HCPCS: 74246

== ENCOUNTER → 2023-06-12 08:24 | Outpatient (BNV) | payer OTHER, SELFPAY | PROVIDERS: PCP Internal Medicine; Visit Provider Radiology Diagnostic Radiology | DX: Z01.818 Encounter for other preprocedural examination (principal); E66.01 Morbid (severe) obesity due to excess calories | CPT/HCPCS: 74246 ==

== ENCOUNTER 2023-07-02 11:10 | Outpatient (REF) | payer OTHER, SELFPAY ==
[2023-07-08 12:20] LABS: H Pylori Breath Test Negative (Negative)
== END 2023-07-02 11:11 | disposition home or self-care (01) ==
LOC: CF 11:10
PROVIDERS: Physician Assistant; PCP Internal Medicine; Visit Provider Counselor Mental Health
DX: E66.01 Morbid (severe) obesity due to excess calories (principal); Z68.43 Body mass index [BMI] 50.0-59.9, adult; K76.0 Fatty (change of) liver, not elsewhere classified; Z11.0 Encounter for screening for intestinal infectious diseases
CPT/HCPCS: 83013; 99211; 99212

== ENCOUNTER 2023-07-02 11:10 | Outpatient (AMB) | payer OTHER, SELFPAY ==
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
== END 2023-07-03 09:54 | disposition home or self-care (01) ==
PROVIDERS: PCP Internal Medicine; Visit Provider Counselor Mental Health
DX: F43.20 Adjustment disorder, unspecified (principal); E66.01 Morbid (severe) obesity due to excess calories; Z68.43 Body mass index [BMI] 50.0-59.9, adult
CPT/HCPCS: 90834

== ENCOUNTER 2023-07-02 12:54 | Outpatient (REF) | payer OTHER, SELFPAY | END 2023-07-02 12:55 | disposition home or self-care (01) | LOC: HO.SH 12:54 | PROVIDERS: Visit Provider Nurse Practitioner Family | DX: Z01.118 Encounter for examination of ears and hearing with other abnormal findings (principal); H93.293 Other abnormal auditory perceptions, bilateral | CPT/HCPCS: 92557; 92567; 92588; 92700 ==

== ENCOUNTER 2023-07-02 14:48 | Outpatient (AMB) | payer OTHER, SELFPAY ==
--- NOTE | 2023-07-02 12:39 | MHC.OFFVISWM ---
Intake VS Expanded 07/02/23 14:56 BP 138/79 Blood Pressure Location Rt brachial Blood Pressure Position Sitting Pulse 88 Pulse Source Pulse Oximeter Temp 97.8 F Temperature Source Temporal Artery Scan Pulse Oximetry 100 Oxygen Delivery Method Room Air Height 5 ft 5.5 in Weight 299 lb 3.2 oz BMI 49.0 Body Fat % 46.6 Body Fat Mass 139.6 Fat Free Mass 159.6 Visceral Fat Rating 15.0 Body Water % 38.2 Body Water Mass 114.4 Muscle Mass/Score 151.6 Basal Metabolic Rate/Score 2,293 Intake Visit Reasons: (OV) F/U SWL Allergies No Known Allergies Allergy (Verified 07/02/23 14:54) HPI HPI Comments History of Present Illness Details This is the patients second appt for SWL. Starting weight was 329.1 lbs on 04/09/23. TBWL is 29.9 lbs or 9% TBWL. Had to find a new job. Has been having appts with Estela which she finds very helpful. Meal plan: restarted DD - coffee with pumpkin syrup over the last week. 8:30 - Premier shake - over 1 hour 11 am -[employer] bar forgets second shake dinner anywhere from 6 - 8:30 - protein bowl from [employer] last night. Or her mother cooks - protien and mashed potatoes, no vegetables. Exercise plan: slowed down recently due to busy with kids and single parent of 3 kids 30 - 45 minutes in evening of home videos. Pre op work up completed as follows: SWL classes - 02/01 appts - cleared RD appts - cleared - needs to fisnish classes H pylori - not done yet Labs -anemia, vit A, B1 and D deficiencies CXR and ECG - both normal ULS -liver steatosis, L 16.7, R 9.9 UGI - small HH, moderate reflux Contraception- no male sex partners PFSH Medical History (Updated 07/02/23 @ 12:44 by Rachel Mcmillan PA-C) Family history of diabetes mellitus Surgical History History of D&C Family History Other Family history of diabetes mellitus Social History Household Members: Family and Children Housing: House Alcohol intake: current Alcohol intake frequency: holidays/special occasions only Patient Tobacco Use Status: Never used Tobacco e-Cigarette/Vaping Use: Never Used Second Hand Smoke Exposure: No service: No Current occupational status: employed Current occupation: [employer] Cognitive needs: No Hearing needs: No Vision needs: No Female Reproductive History Menstrual Age of Menarche: 10 Assessment & Plan Assessment & Plan (1) Morbid obesity with BMI of 50.0-59.9, adult: Code(s): E66.01 - Morbid (severe) obesity due to excess calories; Z68.43 - Body mass index [BMI] 50.0-59.9, adult Plan: Great weight loss of 30 lbs and 9%, but has been struggling recently with consistency. WE changed the times of her meal plan and encouraged her to meal plan and prep on weekends. 8:30- shake 12 pm- meal 3-4 pm bar 7pm- shake Exercise vidoes - on weekends for 45 minutes and M W, F for 30 minutes in am H pyori today, follow up with Estela and complete SWL classes and discuss with Yasmine. Next appt with me in 3 weeks. Patient is morbidly obese and is not considered stable at this time. I spent 30 minutes in total with patient reviewing/updating records, examining the patient and counseling the patient on weight management as detailed above. (2) Steatosis, liver: Code(s): K76.0 - Fatty (change of) liver, not elsewhere classified Medications: New inulin (Fiber Gummies) 2 grams PO BID 60 tabs 5RF Coding Level of Care Code Est Pt Level 4 (18917) Diagnoses Morbid obesity with BMI of 50.0-59.9, adult E66.01; Z68.43 Steatosis, liver K76.0
[2023-07-02 14:56] VITALS: BP 138/79; PULSE 88; TEMP 36.6; O2SAT 100; BMI 49.0
== END 2023-07-02 15:35 | disposition home or self-care (01) ==
PROVIDERS: PCP Internal Medicine; Visit Provider Physician Assistant
DX: E66.01 Morbid (severe) obesity due to excess calories (principal); Z68.43 Body mass index [BMI] 50.0-59.9, adult; K76.0 Fatty (change of) liver, not elsewhere classified
CPT/HCPCS: 99214

== ENCOUNTER 2023-07-16 12:45 | Outpatient (AMB) | payer OTHER, SELFPAY ==
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
[2023-07-16 12:52] VITALS: BP 134/78; BMI 50.3
== END 2023-07-16 14:00 | disposition home or self-care (01) ==
LOC: HO.HWS 12:45
PROVIDERS: PCP Internal Medicine; Visit Provider Advanced Practice Midwife
DX: Z12.39 Encounter for other screening for malignant neoplasm of breast (principal); E66.01 Morbid (severe) obesity due to excess calories; Z68.43 Body mass index [BMI] 50.0-59.9, adult; Z83.3 Family history of diabetes mellitus; N63.0 Unspecified lump in unspecified breast
CPT/HCPCS: 99213

== ENCOUNTER → 2023-07-16 12:45 | Outpatient (BNVA) | payer OTHER, SELFPAY | PROVIDERS: PCP Internal Medicine; Visit Provider Advanced Practice Midwife | DX: Z12.39 Encounter for other screening for malignant neoplasm of breast (principal); N63.0 Unspecified lump in unspecified breast; E66.01 Morbid (severe) obesity due to excess calories; Z83.3 Family history of diabetes mellitus; Z68.43 Body mass index [BMI] 50.0-59.9, adult | CPT/HCPCS: 99212 ==

== ENCOUNTER 2023-07-25 12:34 | Outpatient (AMB) | payer OTHER, SELFPAY ==
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
== END 2023-08-09 11:56 | disposition home or self-care (01) ==
LOC: HO.HBST 12:34
PROVIDERS: PCP Internal Medicine; Visit Provider Counselor Mental Health
DX: F43.20 Adjustment disorder, unspecified (principal); E66.01 Morbid (severe) obesity due to excess calories; Z68.43 Body mass index [BMI] 50.0-59.9, adult
CPT/HCPCS: 90832

== ENCOUNTER → 2023-07-25 12:34 | Outpatient (BNVA) | payer OTHER, SELFPAY | PROVIDERS: PCP Internal Medicine; Visit Provider Counselor Mental Health ==

== ENCOUNTER 2023-07-27 07:57 | Outpatient (REF) | payer OTHER, SELFPAY ==
--- NOTE | ~2023-07-27 | MM_ITS ---
EXAMINATION: MM DIAGNOSTIC DIGITAL BREAST TOMOSYNTHESIS, BILATERAL US BREAST LIMITED, LEFT MAMMOGRAPHY: CLINICAL INFORMATION: 33-year-old with palpable focus left breast approximately 11:00 axis. COMPARISON: Mammography: None. Baseline exam. TECHNIQUE: Digital breast tomosynthesis is performed in both the craniocaudal and mediolateral oblique views along with computer-aided detection (CAD). Synthesized 2D images are generated from the tomosynthesis. FINDINGS: There are scattered areas of fibroglandular density (ACR BI-RADS breast composition Category b). There are no significant masses, abnormal calcifications, or other abnormalities. Results are provided to the patient at time of visit by the technologist. ULTRASOUND: CLINICAL INFORMATION: 33-year-old with palpable focus left breast approximately 11:00 axis. COMPARISON: None TECHNIQUE: Targeted sonographic evaluation left breast was performed using a high frequency linear transducer. Attention was given to the palpable region approximately 11:00 axis left breast. Selected archived documentation. FINDINGS: LEFT BREAST: There is a mixture of fatty and fibroglandular tissue. No suspicious mass is seen. There is no pathologic acoustic shadowing. There is no ultrasonographic correlate to the region of palpable concern. MM/MM tomosynthesis diagnostic BI IMPRESSION: There are no findings suspicious for malignancy. There are no sonographic or mammographic correlates to the focus of palpable concern in the left breast at the approximate 11:00 axis. Recommend clinical management. OVERALL ASSESSMENT: Mammography: BI-RADS 1 - Negative Ultrasound: BI-RADS 1 - Negative RECOMMENDATION: 1. Patient should be managed based on the clinical impression. Decision to proceed with biopsy should be based on clinical grounds and degree of clinical concern. 2. Otherwise, routine annual screening mammography at age 40.
== END 2023-07-27 07:58 | disposition home or self-care (01) ==
LOC: HO.MAMMO 07:57
PROVIDERS: PCP Internal Medicine; Visit Provider Advanced Practice Midwife
DX: N64.89 Other specified disorders of breast (principal)
CPT/HCPCS: 76642; 77062; 77066

== ENCOUNTER → 2023-07-27 08:00 | Outpatient (BNV) | payer OTHER, SELFPAY | PROVIDERS: PCP Internal Medicine; Visit Provider Radiology Diagnostic Radiology | DX: R92.323 Mammographic fibroglandular density, bilateral breasts (principal); R92.312 Mammographic fatty tissue density, left breast | CPT/HCPCS: 76642; 77062; 77066 ==

== ENCOUNTER 2023-08-09 12:07 | Outpatient (AMB) | payer OTHER, SELFPAY ==
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
== END 2023-08-09 12:34 | disposition home or self-care (01) ==
LOC: HO.HBST 12:07
PROVIDERS: PCP Internal Medicine; Visit Provider Counselor Mental Health
DX: F43.20 Adjustment disorder, unspecified (principal); E66.01 Morbid (severe) obesity due to excess calories; Z68.43 Body mass index [BMI] 50.0-59.9, adult
CPT/HCPCS: 90832

== ENCOUNTER → 2023-08-09 12:07 | Outpatient (BNVA) | payer OTHER, SELFPAY | PROVIDERS: PCP Internal Medicine; Visit Provider Counselor Mental Health ==

== ENCOUNTER 2023-11-23 18:52 | Emergency (ER) | payer OTHER, SELFPAY ==
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
[2023-11-23 20:09] VITALS: BP 153/92; PULSE 81; RESP 18; TEMP 36.6; O2SAT 99; BMI 52.7
[2023-11-23 20:28] VITALS: BP 153/92; PULSE 81; RESP 18; TEMP 36.6; O2SAT 99
== END 2023-11-23 20:29 | disposition home or self-care (01) ==
PROVIDERS: Emergency Provider Emergency Medicine Emergency Medical Services
DX: S29.012A Strain of muscle and tendon of back wall of thorax, initial encounter (principal); V43.52XA Car driver injured in collision with other type car in traffic accident, initial encounter; Y92.415 Exit ramp or entrance ramp of street or highway as the place of occurrence of the external cause; Y93.89 Activity, other specified; Y99.9 Unspecified external cause status; R51.9 Headache, unspecified
CPT/HCPCS: 99282

== ENCOUNTER 2023-12-06 17:54 | Emergency (ER) | payer OTHER, SELFPAY ==
--- NOTE | ~2023-12-06 | XR_ITS ---
EXAMINATION: XR CHEST CLINICAL INFORMATION: Left upper chest pain. COMPARISON: Chest radiograph 04/14/2023. TECHNIQUE: 2 views of the chest were obtained. FINDINGS: Normal appearance of the cardiomediastinal silhouette. No focal airspace opacities, pleural effusion or pneumothorax. No acute osseous findings. XR/XR chest 2V IMPRESSION: No acute cardiopulmonary findings.
[2023-12-06 18:21] VITALS: BP 141/87; PULSE 84; RESP 18; TEMP 36.7; O2SAT 99; BMI 53.8
--- NOTE | 2023-12-06 18:23 | ECG_ITS ---
Test Reason : CHEST PAIN Blood Pressure : / mmHG Vent. Rate : 089 BPM Atrial Rate : 089 BPM P-R Int : 160 ms QRS Dur : 090 ms QT Int : 386 ms P-R-T Axes : 021 -21 003 degrees QTc Int : 469 ms Normal sinus rhythm Minimal voltage criteria for LVH, may be normal variant ( R in aVL ) Cannot rule out Anterior infarct , age undetermined Abnormal ECG When compared with ECG of 25-APR-2023 08:38, Minimal criteria for Anterior infarct are now Present Referred By: Jennifer Bailey Electronically Signed By:Reza Wall
--- NOTE | 2023-12-06 18:24 | ED_ITS ---
HPI - Chest Pain General Chief Complaint: Chest Pain Stated Complaint: sharp pain above breast Time Seen by Provider: 12/06/23 20:13 Source: patient, RN notes reviewed and old records reviewed Mode of arrival: ambulatory Limitations: no limitations History of Present Illness HPI narrative: 33-year-old female with past medical history significant for obesity, fatty liver presents for evaluation of chest pain. Patient reports that she experienced chest pain above her left breast towards her left armpit while at work today. This happened around 2:00 p.m., about 6 hours ago She states the pain is waxing and waning, last a few seconds and is unrelated to exertion or eating She denies any associated symptoms including cough, shortness of breath, fevers, chills, palpitations Denies any abdominal pain, nausea vomiting, diarrhea Currently she is pain-free Denies any leg swelling She has no risk factors for DVT/PE Related Data Home Medications ?Medication ?Instructions ?Recorded ?Confirmed ibuprofen 600 mg tablet 600 mg PO Q6H PRN 07/16/23 07/16/23 Previous Rx's ?Medication ?Instructions ?Recorded thiamine HCl (vitamin B1) 50 mg 50 mg PO DAILY #90 tabs 04/16/23 tablet vitamin A palmitate 3,000 mcg 6,000 mcg (2 x 3,000 mcg (10,000 04/26/23 (10,000 unit) capsule unit)) PO DAILY 2 weeks #28 caps inulin 2 gram chewable tablet 2 g PO BID #60 tabs 07/02/23 (Fiber Gummies) cholecalciferol (vitamin D3) 25 25 mcg PO DAILY #90 caps 08/11/23 mcg (1,000 unit) capsule (Vitamin D3) Allergies Allergy/AdvReac Type Severity Reaction Status Date / Time No Known Allergies Allergy Verified 12/06/23 18:22 Review of Systems 2 Constitutional: Constitutional: Denies body ache(s), Denies chills and Denies fever(s) Eyes: Eyes: Denies blurry vision ENT: Denies sore throat Cardiovascular: Cardiovascular: Reports chest pain and Denies dyspnea Respiratory: Respiratory: Denies cough and Denies dyspnea Gastrointestinal: Gastrointestinal: Denies abdominal pain, Denies nausea and Denies vomiting Genitourinary: Genitourinary: Denies dysuria Musculoskeletal: Musculoskeletal: Denies back pain Integumentary/Breasts: Skin/Breast: Denies rash Psychiatric: Psychiatric: Reports anxiety and Denies depression [facility] Past Medical History Medical History Family history of diabetes mellitus Surgical History History of D&C Family History Family History Other Family history of diabetes mellitus Social History Social History Household Members: Family and Children Housing: House Alcohol intake: current Alcohol intake frequency: holidays/special occasions only Patient Tobacco Use Status: Never used Tobacco Smoked in Last 30 Days: No e-Cigarette/Vaping Use: Never Used Second Hand Smoke Exposure: No Use of substances other than those prescribed or required for medical reasons: No Advance Directives: No Advance Directives Information Provided: No Patient : No service: No Current occupational status: employed Current occupation: [employer] Cognitive needs: No Hearing needs: No Vision needs: No Physical Exam 2 Vital Signs: Vital Signs: Last Vital Signs Temp 98.6 F 12/06/23 19:55 Pulse 98 12/06/23 19:55 Resp 17 12/06/23 19:55 BP 154/95 H 12/06/23 19:55 Pulse Ox 100 12/06/23 19:55 O2 Del Method Room Air 12/06/23 19:55 BMI result Body Mass Index 53.8 Const: General: healthy appearing, comfortable, no acute distress, alert and awake Nutritional Appearance: well nourished Orientation/consciousness: p atient oriented x3 HEENT: Head: Yes normocephalic and Yes atraumatic Eyes: Eyelids: Yes eyelids normal Conjunctivae: conjunctivae normal S clerae: sclerae normal Corneas: corneas normal Pupils: Equal, round and reactive pupils present EOM: EOMs intact bilaterally Neck: Neck: Yes full ROM Chest: Other: No left chest wall tenderness. No crepitus. No palpable mass Chest palpation & inspection: normal inspection of the chest Resp: Effort & Inspection: normal respiratory effort, able to speak in complete sentences and not labored Cardio: Rate: regular rate Rhythm: regular rhythm GI: Inspection: No distended Palpation (GI): Soft to palpation, not firm, nontender, no guarding and not rigid Skin: General skin exam: elasticity normal Neuro: General: patient oriented x3 Cranial nerves: Yes Equal, round and reactive pupils present and Yes Bilaterally intact EOM present Cognition (Neuro): normal cognition Course Course Course Narrative: This is a Rapid Medical Examination (RME) in triage, full HPI, ROS, assessment and plan per primary provider in the Main ED. 33 yo female presenting for evaluation of sharp, intermittent, non-radiating left upper chest pains that have been occurring since 2pm today. No other symptoms associated with it. Plan: EKG, CXR, labs Medical Decision Making Medical Decision Making [facility] Narrative: 33-year-old female with past medical history as documented above presents for evaluation of chest pain. She is currently pain-free, she is slightly hypertensive but otherwise vital signs are within normal limits. Patient's EKG shows normal sinus rhythm there are no ST segment elevations or depressions. There are T-wave inversions in lead 3. These are consistent with her previous EKG from April 25, 2023. The patient is PERC negative. Chest x-ray does not show any focal infiltrates or effusions to explain her pain. There are no palpable breast masses. The patient's symptoms may be related to costochondritis versus muscle strain versus anxiety. Plan to repeat troponin to officially rule out ACS Differential Diagnosis Differential Diagnoses: The differential diagnosis associated with the presentation includes Chest pain Chest wall pain Bronchitis Pneumonia ACS Costochondritis PE less likely Admission/Observation Consideration of admission/observation: Escalation of care including admission/observation considered Patient considered for admission due to chest pain. However she ultimately ruled out for ACS Lab Data [facility] Lab Attestation statement: I reviewed the patient's lab results. Patient has a mild leukocytosis to 12.8. There is no left shift. She has frequently had leukocytosis in the past without infectious cause. There is no significant anemia, but the patient does have a low MCV of 76.1. Chemistries within normal limits. This includes electrolytes, troponin negative, LFTs within normal limits. 12/06/23 18:39 12/06/23 18:39 Labs: Lab Results 12/06/23 12/06/23 Range/Units 18:39 20:44 WBC 12.8 H (4.8-10.8) X10*3/uL RBC 5.03 (4.20-5.50) X10*6/uL Hgb 12.4 (12.0-16.0) g/dl Hct 38.3 (37.0-47.0) % MCV 76.1 L (80.0-98.0) fL MCH 24.7 L (27.0-33.0) pg MCHC 32.4 (31.0-35.0) g/dl RDW 15.1 (11.0-16.0) % Plt Count 468 H (160-400) X10*3/uL MPV 9.7 (9.4-12.3) fL Immature Gran % (Auto) 0.3 (0.0-0.4) % Neut % (Auto) 61.3 (45-73) % Lymph % (Auto) 29.7 (20-40) % Dillon % (Auto) 5.5 (2-11) % Eos % (Auto) 2.7 (0-4) % Baso % (Auto) 0.5 (0-2) % Lymph # (Auto) 3.8 (1.2-4.9) X10*3/uL Dillon # (Auto) 0.7 (0.1-1.2) X10*3/uL Eos # (Auto) 0.3 (0.0-0.4) X10*3/uL Baso # (Auto) 0.1 (0.0-0.2) X10*3/uL Abs Immat Gran (auto) 0.04 H (0.00-0.03) X10*3/uL Absolute Neuts (auto) 7.9 (2.0-8.3) x10*3/uL Absolute Nucleated RBC 0.000 (0.0-0.012) X10*3/uL Nucleated RBC % (auto) 0.0 (0.0-0.2) /100WBC Sodium 139 (135-145) mmol/L Potassium 3.7 (3.3-5.1) mmol/L Chloride 108 (96-108) mmol/L Carbon Dioxide 23 (22-29) mmol/L Anion Gap 12 (12-20) BUN 14 (9-16) mg/dL Creatinine 0.61 (0.5-1.4) mg/dL Estim Creat Clear Calc 188.7 Estimated GFR > 60 Random Glucose 98 (60-115) mg/dL Calcium 9.1 D (8.4-10.2) mg/dL Magnesium 2.0 (1.6-2.6) mg/dL Total Bilirubin 0.2 (0.0-1.0) mg/dL Direct Bilirubin < 0.2 (0.0-0.5) mg/dL AST 13 (5-31) U/L ALT 16 (0-31) U/L Alkaline Phosphatase 85 (39-117) U/L Troponin I High Sens < 2.7 < 2.7 (<3.5-17.0) ng/L Total Protein 7.7 (6.5-8.0) g/dL Albumin 4.1 (3.5-5.0) g/dL Independent Interpretation I performed an independent interpretation of an: EKG and Plain X-Ray (No focal infiltrate) Radiology Impression Discussion of test interpretation with radiology: I have reviewed the radiologist's reading. (No acute cardiopulmonary findings) Discharge Plan Discharge Clinical Impression: Left-sided chest pain Patient Disposition: Home, Self-Care Instructions: Chest Pain (ED) Additional Instructions: Your workup in the ER today was reassuring. This includes your blood work, chest x-ray and EKG. Follow-up with your primary doctor Return for new or worsening symptoms Prescriptions: No Action thiamine HCl (vitamin B1) 50 mg tablet 50 mg PO DAILY Qty: 90 1RF vitamin A palmitate 3,000 mcg (10,000 unit) capsule 6,000 mcg PO DAILY 14 Days Qty: 28 0RF cholecalciferol (vitamin D3) [Vitamin D3] 25 mcg (1,000 unit) capsule 25 mcg PO DAILY Qty: 90 1RF Fiber Gummies 2 gram tablet,chewable 2 g PO BID Qty: 60 5RF ibuprofen 600 mg tablet 600 mg PO Q6H PRN Print Language: Swazi
[2023-12-06 18:43] LABS: MANUAL DIFF FLAG NO
[2023-12-06 18:54] LABS: Basophils Absolute Auto 0.1 X10*3/uL (0.0-0.2); Basophils Percent Auto 0.5 % (0-2); Eosinophils Absolute Auto 0.3 X10*3/uL (0.0-0.4); Eosinophils Percent Auto 2.7 % (0-4); Hematocrit 38.3 % (37.0-47.0); Hemoglobin 12.4 g/dl (12.0-16.0); Imm Gran Abs Auto 0.04 X10*3/uL (0.00-0.03); Imm Gran Pct Auto 0.3 % (0.0-0.4); Lymphocytes Absolute Auto 3.8 X10*3/uL (1.2-4.9); Lymphocytes Percent Auto 29.7 % (20-40); Mean Corpuscular HGB Conc 32.4 g/dl (31.0-35.0); Mean Corpuscular Hemoglobin 24.7 pg (27.0-33.0); Mean Corpuscular Volume 76.1 fL (80.0-98.0); Mean Platelet Volume 9.7 fL (9.4-12.3); Monocytes Absolute Auto 0.7 X10*3/uL (0.1-1.2); Monocytes Percent Auto 5.5 % (2-11); Neutrophils Absolute Auto 7.9 x10*3/uL (2.0-8.3); Neutrophils Percent Auto 61.3 % (45-73); Platelet Count 468 X10*3/uL (160-400); Red Blood Count 5.03 X10*6/uL (4.20-5.50); Red Cell Distribution Width 15.1 % (11.0-16.0); White Blood Count 12.8 X10*3/uL (4.8-10.8)
[2023-12-06 18:58] LABS: Alanine Aminotransferase 16 U/L (0-31); Albumin Level 4.1 g/dL (3.5-5.0); Alkaline Phosphatase 85 U/L (39-117); Anion Gap 12 (12-20); Aspartate Amino Transferase 13 U/L (5-31); Bilirubin Direct < 0.2 mg/dL (0.0-0.5); Bilirubin Total 0.2 mg/dL (0.0-1.0); Blood Urea Nitrogen 14 mg/dL (9-16); Calcium 9.1 mg/dL (8.4-10.2); Carbon Dioxide 23 mmol/L (22-29); Chloride 108 mmol/L (96-108); Creatinine Clr Calc Pharmacy 188.7; Estimated Glomerular Filt Rate > 60; Glucose Random 98 mg/dL (60-115); Potassium 3.7 mmol/L (3.3-5.1); Sodium 139 mmol/L (135-145); Total Protein 7.7 g/dL (6.5-8.0)
[2023-12-06 19:06] LABS: Troponin-I High Sensitivity < 2.7 ng/L (<3.5-17.0)
[2023-12-06 19:55] VITALS: BP 154/95; PULSE 98; RESP 17; TEMP 37; O2SAT 100
[2023-12-06 20:09] VITALS: PULSE 81
[2023-12-06 21:26] LABS: Troponin-I High Sensitivity < 2.7 ng/L (<3.5-17.0)
[2023-12-06 21:42] VITALS: BP 131/85; PULSE 88; RESP 19
[2023-12-06 21:45] VITALS: BP 131/88; PULSE 88; RESP 16; TEMP 36.6; O2SAT 99
== END 2023-12-06 21:46 | disposition home or self-care (01) ==
PROVIDERS: Physician Assistant; Emergency Provider Internal Medicine; PCP Internal Medicine
DX: R07.89 Other chest pain (principal); N64.4 Mastodynia; K76.0 Fatty (change of) liver, not elsewhere classified; Z79.899 Other long term (current) drug therapy
CPT/HCPCS: 36415; 71046; 80048; 80076; 83735; 84484; 85025; 93005; 99283; 99285

== ENCOUNTER → 2023-12-06 18:23 | Outpatient (BNV) | payer OTHER, SELFPAY | PROVIDERS: Emergency Provider Internal Medicine; PCP Internal Medicine; Visit Provider Internal Medicine Cardiovascular Disease | DX: R94.31 Abnormal electrocardiogram [ECG] [EKG] (principal) | CPT/HCPCS: 93010 ==

== ENCOUNTER 2024-01-26 09:04 | Outpatient (AMB) | payer OTHER, SELFPAY ==
--- NOTE | 2024-01-26 09:12 | MHC.OFFWIV ---
Intake Vital Signs 01/26/24 09:13 Height 5 ft 5 in Weight 318 lb BMI 52.9 BP 118/80 Blood Pressure Location Rt brachial Position Sitting Pulse 85 Pulse Source Pulse Oximeter Pulse Oximetry (%) 98 Oxygen Delivery Method Room Air Intake Visit Reasons: EST/tingling in fingers (lobby) Intake Note: Patient herefor tingling in bilat hands and feet that has been going on since Sunday Patient Tobacco Use Status: Never used Tobacco Allergies No Known Allergies Allergy (Verified 01/26/24 09:28) Do you need a note to return to daycare/school/sports/work: No HPI HPI Comments History of Present Illness Details Here today with complaints of paresthesia affecting bilat hands and feet. Started a few days ago. Reports that the sensation comes and goes. Worse when applying pressure to her extremities. Was in her usual state of health until this started. Has no loss of function, no weakness. She was taking vitamin supplements B1 and vitamin A in the past however, she ran out of refills. She denies any other constitutional symptoms other than feeling anxious about the symptoms. [facility] Medical History Family history of diabetes mellitus Surgical History History of D&C Family History Other Family history of diabetes mellitus Social History Household Members: Family and Children Housing: House Alcohol intake: current Alcohol intake frequency: holidays/special occasions only Patient Tobacco Use Status: Never used Tobacco e-Cigarette/Vaping Use: Never Used Second Hand Smoke Exposure: No service: No Current occupational status: employed Current occupation: [employer] Cognitive needs: No Hearing needs: No Vision needs: No Female Reproductive History Menstrual Age of Menarche: 10 Review of Systems Const All systems reviewed & are unremarkable except as noted in HPI and below Physical Exam Vital Signs: Last Vital Signs Pulse 85 01/26/24 09:13 BP 118/80 01/26/24 09:13 Pulse Ox 98 01/26/24 09:13 Oxygen Delivery Method Room Air 06/01/24 09:13 BMI result Body Mass Index 52.9 Const Other: Awake alert oriented DUFFY x4, strength and tone within normal limits. Neurovascularly intact. Unable to reproduce the symptoms. Joints that edematous, no erythema, no tenderness Assessment & Plan Assessment & Plan (1) Paresthesia: Code(s): R20.2 - Paresthesia of skin Plan: . Plan . Medications: New mecobalamin (vitamin B12) 1,000 mcg PO DAILY 30 tabs 0RF Patient Instructions: Advised the patient this may be related to a vitamin deficiency. However this workup will need to be done by her primary care provider. At this time I will treat her with vitamin B12. She can take 1 tablet once per day. She has a follow-up appointment with her primary care during . Reassurance provided. Coding Level of Care Code Est Pt Level 3 (20348) Diagnoses Paresthesia R20.2
[2024-01-26 09:13] VITALS: BP 118/80; PULSE 85; O2SAT 98; BMI 52.9
== END 2024-01-26 10:10 | disposition home or self-care (01) ==
PROVIDERS: PCP Internal Medicine; Visit Provider Nurse Practitioner Family
DX: R20.2 Paresthesia of skin (principal)
CPT/HCPCS: 99051; 99213

== ENCOUNTER 2024-02-05 08:15 | Outpatient (AMB) | payer OTHER, SELFPAY ==
[2024-02-05 08:33] VITALS: BP 120/82; BMI 52.7
--- NOTE | 2024-02-05 08:33 | A.OFFPC_ITS ---
Vital Signs 02/05/24 08:33 Height 5 ft 5 in Weight 317 lb BMI 52.7 BP 120/82 Blood Pressure Location Lt brachial Position Sitting Intake Visit Reasons: pe Intake Note: Patient here for a physical exam Collection Manager Required: No Accompanied by: Self / Same As Patient Allergies No Known Allergies Allergy (Verified 02/05/24 08:58) Medication List - Last Reconciled 02/05/24 by Glenna Shah MD ibuprofen 600 mg PO Q6H PRN mecobalamin (vitamin B12) 1,000 mcg PO DAILY Tobacco use date assessed: 02/05/24 Dental Screening Dental Screen Date: 02/05/24 Did you have a dental visit in the last 12 months?: No Did you have a dental problem in the last 6 months where you did not have access to dental care?: No Was dental information given to patient?: Patient has dentist HPI HPI Comments History of Present Illness Details This is a 33-year-old female with morbid obesity that comes for her physical exam. She is morbidly obese with a BMI of 52.8 and has tried diet and exercise in the past with no significant improvement. She did went to weight loss last year which lost a few lb but then gain them back. Last Pap smear was 2022 and was normal. No chest pain or shortness on breath. [facility] Medical History Family history of diabetes mellitus Surgical History History of D&C Family History Father Pulmonary embolism Mother Thyroid disease Other Family history of diabetes mellitus Social History (Updated 02/05/24 @ 09:03 by Glenna Shah MD) Household Members: Family and Children Housing: House Alcohol intake: current Alcohol intake frequency: holidays/special occasions only Alcohol type: beer Patient Tobacco Use Status: Never used Tobacco e-Cigarette/Vaping Use: Never Used Second Hand Smoke Exposure: No service: No Current occupational status: employed Current occupation: [employer] Current occupational exposures/hazards: No Cognitive needs: No Hearing needs: No Vision needs: No Female Reproductive History Menstrual Age of Menarche: 10 Questionnaire PHQ-9 Over the last 2 weeks, how often have you been bothered by any of the following problems? 1. Little interest or pleasure in doing things: not at all 2. Feeling down, depressed, or hopeless: not at all 3. Trouble falling or staying asleep, or sleeping too much: not at all 4. Feeling tired or having little energy: not at all 5. Poor appetite or overeating: not at all 6. Feeling bad about yourself - or that you are a failure or have let yourself or your family down: not at all 7. Trouble concentrating on things, such as reading the newspaper or watching television: not at all 8. Moving or speaking so slowly that other people could have noticed. Or the opposite - being so fidgety or restless that you have been moving around a lot more than usual: not at all 9. Thoughts that you would be better off or of hurting yourself in some way: not at all Total score: 0 Depression Screening Interpretation: Negative Depression Screening Done: Yes 12109 - PHQ-9 Billing: Yes Source: Developed by Drs. Ryan Fermin, Jeanette Albert, Bacilio Alva and colleagues, with an educational jeremías from [email or web address]. Thrive Questionnaire Date Thrive assessed: 02/05/24 I am a: Patient What is your living situation today?: I have a steady place to live Within the past 12 months, did the food you bought not last and you didn't have the money to get more?: Never true Within the past 12 months, did you worry whether your food would run out before you got money to buy more?: Never true Do you have trouble paying for medicines?: No Do you have trouble getting transportation to medical appointments?: No Do you have trouble paying your heating and electricity bill?: No Do you have trouble taking care of your child, family member or friend?: No Do you have trouble with day-to-day activities such as bathing, preparing meals, shopping, managing finances, etc.?: No Are you currently unemployed and looking for a job?: No Are you interested in more education?: No Please select the resources that you would like help with: None Currently or been in a relationship where the following occur: no concerns reported THRIVE Score: 0 AUDIT C Alcohol Use Questionnaire (AUDIT-C) 1. How often do you have a drink containing alcohol?: Never Total Score: 0 Score Reviewed/Action Taken: No LEIGHTON-7 AMB Questionnaire LEIGHTON-7 Date LEIGHTON - 7 assessed: 02/05/24 Feeling nervous, anxious, or on edge: 0 = Not at all Not being able to stop or control worryin = Not at all Worrying too much about different things: 0 = Not at all Trouble relaxin = Not at all Being so restless that it is hard to sit still: 0 = Not at all Becoming easily annoyed or irritable: 0 = Not at all Feeling afraid as if something awful might happen: 0 = Not at all Total LEIGHTON-7 score (0-4 normal; 5-9 mild; 10-14 moderate; 15-21 severe): 0 Source: Developed by Drs. Ryan Fermin, Jeanette Albert, Bacilio Alva and colleagues, with an educational jeremías from [email or web address]. LEIGHTON-7 Assessment Billing LEIGHTON-7 Assessment Tool: LEIGHTON-7 Assessment 20024 Review of Systems Const All systems reviewed & are unremarkable except as noted in HPI and below Eyes Reports no additional complaints, Denies change in vision and Denies other visual disturbances Card Denies chest pain at rest, Denies chest pain with activity, Denies edema, Denies irregular heart rhythm, Denies claudication, Denies dyspnea, Denies dyspnea on exertion, Denies orthopnea, Denies paroxysmal nocturnal dyspnea and Denies slow heart rate Resp Denies cough, Denies dyspnea and Denies dyspnea on exertion GI Denies abdominal pain, Denies change in bowel habits, Denies excessive flatus, Denies nausea and Denies vomiting Denies urinary incontinence, Denies urinary hesitancy and Denies urinary urgency Physical exam (Primary Care) Vital Signs: Last Vital Signs BP 120/82 02/05/24 08:33 BMI result Body Mass Index 52.7 Tobacco/Smoking Status: Tobacco use Status Tobacco use date assessed 02/05/24 02/05/24 08:38 Patient Tobacco Use Status Never used Tobacco 02/05/24 09:03 e-Cigarette/Vaping Use Never Used 02/05/24 09:03 PHQ-9: PHQ-9 Score PHQ-9: Total score 0 02/05/24 09:03 Depression Screening Interpretation: Negative Thrive Assessment: Date of Thrive Assessment Date Thrive assessed 02/05/24 02/05/24 08:38 Currently or been in a relationship where the following occur: no concerns reported Const Orientation/consciousness: patient oriented x3 [facility] Head: Yes normal to inspection, Yes normocephalic and Yes atraumatic Ears: external ears normal Eyes General: appearance normal, both eyes and all related structures Eyelids: Yes eyelids normal Conjunctivae: conjunctivae normal Neck Neck: Yes normal visual inspection and Yes supple Resp Effort & Inspection: normal respiratory effort Auscultation: clear to auscultation bilaterally Cardio Jugular venous distension: no JVD Rate: regular rate Rhythm: regular rhythm Heart sounds: S1 normal heart sound present and S2 normal heart sound present GI Inspection: Yes normal to inspection Palpation (GI): Soft to palpation and nontender Auscultation: normal bowel sounds Skin General skin exam: no rashes or lesions noted Neuro General: patient oriented x3 and no focal motor deficits Extrem General: Yes full ROM Psych Appearance: grossly normal Assessment and Plan Assessment & Plan (1) Physical exam: Code(s): Z00.00 - Encounter for general adult medical examination without abnormal findings Plan: Repeat in a year. (2) Morbid obesity with BMI of 50.0-59.9, adult: Code(s): E66.01 - Morbid (severe) obesity due to excess calories; Z68.43 - Body mass index [BMI] 50.0-59.9, adult Plan: Start wegovy. BMI goal is less than 30. Orders: Orders Comprehensive [place]. Panel Fast Today Z00.00 - Encounter for general adult medical examination without abnormal findings Vitamin B12 and Folate Today E53.8 - Deficiency of other specified B group vitamins Complete Blood Count Auto Diff Today E66.01 - Morbid (severe) obesity due to excess calories, Z68.43 - Body mass index [BMI] 50.0-59.9, adult Thyroid Stimulating Hormone Today E66.01 - Morbid (severe) obesity due to excess calories, Z68.43 - Body mass index [BMI] 50.0-59.9, adult Lipid Panel Today Z00.00 - Encounter for general adult medical examination without abnormal findings Vitamin D 25-OH Total Today E55.9 - Vitamin D deficiency, unspecified Referrals Gastroenterology Referral K62.5 - Hemorrhage of anus and rectum Medications: New semaglutide (weight loss) (Zach) administer weeks 1 through 4 of therapy 0.25 mg (0.5 mL) subcut QWEEK 2 mL 0RF 4 weeks E66.01 - Morbid (severe) obesity due to excess calories, Z68.43 - Body mass index [BMI] 50.0-59.9, adult Coding Level of Care Code Est Pt Prev Care 18-39y(26248) Diagnoses Physical exam Z00.00 Morbid obesity with BMI of 50.0-59.9, adult E66.01; Z68.43 Additional Codes LEIGHTON-7 Assessment Billing - LEIGHTON-7 Assessment Tool: LEIGHTON-7 Assessment 27747 ([id number]) Time Spent (min) 33
== END 2024-02-05 09:12 | disposition home or self-care (01) ==
PROVIDERS: PCP Internal Medicine; Visit Provider Internal Medicine
DX: Z00.00 Encounter for general adult medical examination without abnormal findings (principal); E66.01 Morbid (severe) obesity due to excess calories; Z68.43 Body mass index [BMI] 50.0-59.9, adult; Z83.3 Family history of diabetes mellitus
CPT/HCPCS: 99395

== ENCOUNTER 2024-02-05 09:21 | Outpatient (REF) | payer OTHER, SELFPAY ==
[2024-02-05 09:34] LABS: MANUAL DIFF FLAG NO
[2024-02-05 10:12] LABS: Basophils Absolute Auto 0.1 X10*3/uL (0.0-0.2); Basophils Percent Auto 0.8 % (0-2); Eosinophils Absolute Auto 0.2 X10*3/uL (0.0-0.4); Eosinophils Percent Auto 1.9 % (0-4); Hematocrit 40.5 % (37.0-47.0); Hemoglobin 12.5 g/dl (12.0-16.0); Imm Gran Abs Auto 0.03 X10*3/uL (0.00-0.03); Imm Gran Pct Auto 0.3 % (0.0-0.4); Lymphocytes Absolute Auto 2.6 X10*3/uL (1.2-4.9); Lymphocytes Percent Auto 28.2 % (20-40); Mean Corpuscular HGB Conc 30.9 g/dl (31.0-35.0); Mean Corpuscular Volume 77.7 fL (80.0-98.0); Mean Platelet Volume 9.8 fL (9.4-12.3); Monocytes Absolute Auto 0.5 X10*3/uL (0.1-1.2); Monocytes Percent Auto 5.4 % (2-11); Neutrophils Absolute Auto 5.9 x10*3/uL (2.0-8.3); Neutrophils Percent Auto 63.4 % (45-73); Platelet Count 434 X10*3/uL (160-400); Red Blood Count 5.21 X10*6/uL (4.20-5.50); Red Cell Distribution Width 14.5 % (11.0-16.0); White Blood Count 9.2 X10*3/uL (4.8-10.8)
[2024-02-05 11:09] LABS: Iron 36 mcg/dL (30-160); Percent Iron Saturation 10 % (15-50); Total Iron Binding Capacity 366 mcg/dL (228-428); Unsaturated Iron Binding 330 ug/dL
[2024-02-05 11:14] LABS: Vitamin D 25-OH Total 22.3 ng/mL (>30)
[2024-02-05 11:31] LABS: Folate 10.9 ng/mL (> or = 4.0); Vitamin B12 542 pg/mL (200-900)
[2024-02-05 11:40] LABS: Alanine Aminotransferase 19 U/L (0-31); Albumin Level 4.3 g/dL (3.5-5.0); Alkaline Phosphatase 82 U/L (39-117); Anion Gap 12 (12-20); Aspartate Amino Transferase 18 U/L (5-31); Bilirubin Total 0.3 mg/dL (0.0-1.0); Blood Urea Nitrogen 14 mg/dL (9-16); Calcium 9.8 mg/dL (8.4-10.2); Carbon Dioxide 26 mmol/L (22-29); Chloride 107 mmol/L (96-108); Cholesterol 180 mg/dL (<200); Estimated Glomerular Filt Rate > 60; Ferritin 30 ng/mL (10-122); Glucose Fasting 89 mg/dL (60-99); HDL Cholesterol 49 mg/dL (>40); LDL Cholesterol Calculated 107 mg/dL (<100); Potassium 4.3 mmol/L (3.3-5.1); Sodium 141 mmol/L (135-145); Thyroid Stimulating Hormone 2.41 uIU/mL (0.32-4.0); Triglycerides 123 mg/dL (<150)
== END 2024-02-05 09:22 | disposition home or self-care (01) ==
LOC: HO.LAB 09:21
PROVIDERS: Nurse Practitioner Family; PCP Internal Medicine; Visit Provider Internal Medicine
DX: Z00.00 Encounter for general adult medical examination without abnormal findings (principal); E61.1 Iron deficiency; E55.9 Vitamin D deficiency, unspecified; E53.8 Deficiency of other specified B group vitamins; E66.01 Morbid (severe) obesity due to excess calories; Z68.43 Body mass index [BMI] 50.0-59.9, adult
CPT/HCPCS: 36415; 80053; 80061; 82306; 82607; 82728; 82746; 83540; 84443; 85025

== ENCOUNTER 2024-03-09 04:46 | Emergency (ER) | payer OTHER, SELFPAY ==
--- NOTE | ~2024-03-09 | CT_ITS ---
EXAMINATION: CT HEAD WITHOUT CONTRAST CLINICAL INFORMATION: Intractable left-sided headache COMPARISON: None available. TECHNIQUE: Contiguous axial imaging was performed from the skull base to vertex without intravenous administration of contrast. This CT examination was performed using dose optimization techniques as appropriate, variously including the following: *Automated exposure control *Adjustment of mA and/or kV according to patient size (this includes techniques or standardized protocols for targeted exams where dose is matched to indication/reason for exam; i.e. extremities or head) *Use of iterative reconstruction technique DLP: 776 mGy-cm FINDINGS: There is no mass hemorrhage or cerebral edema. Ventricles and basal cisterns are normal. No extra-axial fluid collections. Scalp: Normal. Bone: Normal. Sinuses: Mucosal polyp in the inferior aspect of the right maxillary sinus Mastoid air cells: Clear. CT/CT head/brain wo IV con IMPRESSION: 1. No acute intracranial pathology. 2. Mucosal polyp in the right maxillary sinus.
[2024-03-09 05:00] VITALS: BP 145/84; PULSE 84; RESP 16; TEMP 36.9; BMI 52.2
[2024-03-09 05:28] VITALS: BP 109/71; PULSE 76; RESP 16; TEMP 36.2; O2SAT 98
--- NOTE | 2024-03-09 06:33 | ED_ITS ---
HPI - Headache General Chief Complaint: Headache Stated Complaint: headache x5 days Time Seen by Provider: 03/09/24 06:31 Source: patient, RN notes reviewed and old records reviewed Mode of arrival: ambulatory Limitations: no limitations History of Present Illness ED Provider: TAN VARELA PA-C HPI Narrative: 33-year-old female with past medical history significant for migraine headaches, obesity, and fatty liver presents to the ED today for evaluation of headache x5 days. Patient reports history of migraine headaches since she was a teenager however states this feels different. Reports headache began occipitally and now has moved to the left sabianism. Pain is described as a pressure sensation that has been continuous since onset. She has been taking Advil and Tylenol at home without improvement. Her last dose of these medications was 2 days ago. She states her typical migraines are associated with photophobia and nausea with resolution after vomiting. Admits to seeing a neurologist as a teenager with unremarkable workup. She does not currently follow with neurologist or take preventative migraine medications. Denies recent illness. Denies dizziness, vision changes including blurred vision or photophobia. Denies fever, chills, neck pain, scalp tenderness, jaw claudication, nausea or vomiting. Denies injury or trauma to the head. Related Data Home Medications ?Medication ?Instructions ?Recorded ?Confirmed ibuprofen 600 mg tablet 600 mg PO Q6H PRN 07/16/23 02/05/24 Previous Rx's ?Medication ?Instructions ?Recorded mecobalamin (vitamin B12) 1,000 1,000 mcg PO DAILY #30 tabs 01/26/24 mcg chewable tablet cholecalciferol (vitamin D3) 25 25 mcg PO DAILY 90 days #90 caps 03/06/24 mcg (1,000 unit) capsule semaglutide (weight loss) 0.25 0.25 mg (0.5 mL) subcut QWEEK 4 03/06/24 mg/0.5 mL subcutaneous pen weeks #2 mL injector (Wedashavpauline) umhwzam-wgrllfzfptmip-jeffujzp 250 1 tab PO Q6H PRN pain (scale score 03/09/24 mg-250 mg-65 mg tablet (Excedrin 4-6) #7 tabs Migraine) diphenhydramine HCl 25 mg tablet 50 mg (2 x 25 mg) PO Q6-8H #14 tabs 03/09/24 (Benadryl Allergy) metoclopramide HCl 10 mg tablet 10 mg PO Q6H 3 days #12 tabs 03/09/24 (Reglan) Allergies Allergy/AdvReac Type Severity Reaction Status Date / Time No Known Allergies Allergy Verified 03/09/24 05:05 Review of Systems 2 Review of Systems: Constitutional: No fever, chills, fatigue, night sweats, weight changes ENT/Mouth: No ear pain, hearing loss, nasal congestion, sinus pain, rhinorrhea, sore throat Eyes: No eye pain, swelling, redness, vision changes, discharge, photophobia Cardio: No chest pain, palpitations, [place], orthopnea, peripheral edema Pulm: No SOB, cough, sputum, wheezing, dyspnea, hemoptysis GI: No nausea, vomiting, hematemesis, abdominal pain, diarrhea, constipation, hematochezia, melena : No irregular bleeding, dysuria, frequency, urgency, hesitancy, hematuria, flank pain, urinary flow changes, urinary incontinence or retention MSK: No back pain, neck pain, joint pain, myalgias Skin: No lesions, rashes Neuro: No weakness, numbness, paresthesias, LOC, dizziness, +headache Psych: No anxiety/panic, depression, SI/HI, AH/VH All other systems reviewed and are negative. [facility] Past Medical History Attestation statement: The following information was validated with the patient. Source: old records reviewed and nursing notes reviewed Medical History Family history of diabetes mellitus Surgical History History of D&C Family History Family History Father Pulmonary embolism Mother Thyroid disease Other Family history of diabetes mellitus Social History Social History Household Members: Family and Children Housing: House Alcohol intake: current Alcohol intake frequency: holidays/special occasions only Alcohol type: beer Patient Tobacco Use Status: Never used Tobacco Smoked in Last 30 Days: No e-Cigarette/Vaping Use: Never Used Second Hand Smoke Exposure: No Use of substances other than those prescribed or required for medical reasons: No Advance Directives: No Advance Directives Information Provided: No Do you have a plan to hurt others: No Plan Patient : No service: No Current occupational status: employed Current occupation: [employer] Current occupational exposures/hazards: No Cognitive needs: No Hearing needs: No Vision needs: No Physical Exam 2 Vital Signs: Vital Signs: Last Vital Signs Temp 98.1 F 03/09/24 07:11 Pulse 72 03/09/24 07:11 Resp 14 03/09/24 07:11 BP 126/72 03/09/24 07:11 Pulse Ox 100 03/09/24 07:11 O2 Del Method Room Air 03/09/24 07:11 BMI result Body Mass Index 52.2 Vital signs stable, afebrile Const: General: cooperative, healthy appearing, comfortable and no acute distress Orientation/consciousness: patient oriented x3 Limitations: no limitations HEENT: Head: Yes normal to inspection, Yes No palpable skull fracture present, Yes normocephalic, Yes atraumatic, No scalp tenderness and No Temporal artery tenderness present Ears: hearing grossly normal bilaterally, external ears normal, TM's normal bilaterally, EAC's normal, mastoids normal and no periauricular adenopathy Face and sinus: Yes normal facial exam and Yes sinuses nontender Mouth: Normal oral and palatal mucosa present and moist mucous membranes Eyes: General: appearance normal, both eyes and all related structures C onjunctivae: conjunctivae normal Sclerae: sclerae normal Pupils: Equal, round and reactive pupils present Direct Ophthalmoscopy: normal light reflex, no photophobia, no papilledema and fundi normal bilaterally Neck: Neck: Yes normal visual inspection, Yes full ROM, Yes no lymphadenopathy and Yes no meningeal signs Resp: Effort & Inspection: normal respiratory effort and able to speak in complete sentences Auscultation: clear to auscultation bilaterally Cardio: Rate: regular rate Rhythm: regular rhythm Back/Spine/Pelvis: Other: No midline spinous tenderness or step off deformity. No paraspinal muscle tenderness. Skin: General skin exam: no rashes or lesions noted Neuro: General: patient oriented x3, gait normal, tone normal, no meningeal signs and no focal motor deficits Cranial nerves: Yes Equal, round and reactive pupils present Gait exam (Neuro): Normal gait present Motor exam (neuro): 5/5 motor strength present throughout and Pronator motor function not present Coordination: fcwxxw-av-weut test normal, quzf-xv-zfab test normal, Romberg test negative and Normal rapid alternating movements of the distal upper extremity present (Neuro) Romberg Test: Negative Pupils: Normal pupillary reactivity/response: bilateral Course Course Course Narrative: 809 -- On re-evaluation, patient reports improvement in headache after receiving Benadryl, Reglan and Toradol. Will continue to re-evaluate. 0930-- CBC without leukocytosis or left shift. no anemia, H&H stable. chemistry without acute electrolyte abnormality requiring intervention. Ct head/ brain showing a single mucosal polyp in the right maxillary sinus. No intracranial abnormality. No bleed or mass. > on re-evaluation, patient continues to reports symptom improvement with medications. I did discuss all results with patient. At this time I feel comfortable discharging patient home with pain control. She is agreeable with this. Patient has remained stable throughout ED visit today. Discussed worrisome signs and symptoms and when to return to the ED. All questions answered at this time. Patient is agreeable with disposition and stable for discharge. Medications Administered Discontinued Medications Generic Name Dose Route Start Last Admin Trade Name Freq PRN Reason Stop Dose Admin Diphenhydramine HCl 25 mg 03/09/24 06:48 03/09/24 07:33 Diphenhydramine Hcl 50 Mg/Ml Vial IVPUSH 03/09/24 06:49 25 mg ONCE ONE Administration Sodium Chloride 1,000 mls @ 999 mls/hr 03/09/24 07:00 03/09/24 07:40 Ns IV 03/09/24 08:00 999 mls/hr .Q1H1M JACINTA Administration Ketorolac Tromethamine 15 mg 03/09/24 06:48 03/09/24 07:34 Ketorolac Tromethamine 15 Mg/Ml Vial IVPUSH 03/09/24 06:49 15 mg ONCE ONE Administration Metoclopramide HCl 10 mg 03/09/24 06:48 03/09/24 07:35 Metoclopramide Hcl 10 Mg/2 Ml Vial IVPUSH 03/09/24 06:49 10 mg ONCE ONE Administration Medical Decision Making Medical Decision Making MDM Narrative: 33-year-old female with past medical history significant for migraine headaches, obesity, and fatty liver presents to the ED today for evaluation of headache x5 days. Patient initially hypertensive to 145/84, vitals otherwise WNL. She is afebrile. She is nontoxic-appearing and in no acute distress. On exam, PERRLA. EOMs intact without entrapment or pain. No tenderness to percussion over maxillary or frontal sinuses. No palpable temporal artery or scalp tenderness. Exam is nonfocal. Cerebellum intact. Ambulating with steady gait. Differential diagnosis includes headache, migraine, tension headache, anemia, electrolyte abnormality, sinusitis. Unlikely ICH, CVA/TIA/dissection, giant cell arteritis, trigeminal neuralgia, meningitis, encephalitis, TBI. Plan for pain control, basic labs, imaging and re-evaluation. Differential Diagnosis Differential Diagnoses: The differential diagnosis associated with the presentation includes As above Admission/Observation Not indicated Lab Data MDM Lab Attestation statement: I reviewed the patient's lab results. As above 03/09/24 07:38 03/09/24 07:38 Labs: Lab Results 03/09/24 Range/Units 07:38 WBC 9.4 (4.8-10.8) X10*3/uL RBC 5.16 (4.20-5.50) X10*6/uL Hgb 12.6 (12.0-16.0) g/dl Hct 40.1 (37.0-47.0) % MCV 77.7 L (80.0-98.0) fL MCH 24.4 L (27.0-33.0) pg MCHC 31.4 (31.0-35.0) g/dl RDW 14.6 (11.0-16.0) % Plt Count 418 H (160-400) X10*3/uL MPV 9.7 (9.4-12.3) fL Immature Gran % (Auto) 0.4 (0.0-0.4) % Neut % (Auto) 73.7 H (45-73) % Lymph % (Auto) 20.1 (20-40) % [place] % (Auto) 4.4 (2-11) % Eos % (Auto) 0.9 (0-4) % Baso % (Auto) 0.5 (0-2) % Lymph # (Auto) 1.9 (1.2-4.9) X10*3/uL [place] # (Auto) 0.4 (0.1-1.2) X10*3/uL Eos # (Auto) 0.1 (0.0-0.4) X10*3/uL Baso # (Auto) 0.1 (0.0-0.2) X10*3/uL Abs Immat Gran (auto) 0.04 H (0.00-0.03) X10*3/uL Absolute Neuts (auto) 6.9 (2.0-8.3) x10*3/uL Absolute Nucleated RBC 0.000 (0.0-0.012) X10*3/uL Nucleated RBC % (auto) 0.0 (0.0-0.2) /100WBC Sodium 139 (135-145) mmol/L Potassium 4.1 (3.3-5.1) mmol/L Chloride 106 (96-108) mmol/L Carbon Dioxide 25 (22-29) mmol/L Anion Gap 13 (12-20) BUN 11 (9-16) mg/dL Creatinine 0.76 (0.5-1.4) mg/dL Estim Creat Clear Calc 148.7 Estimated GFR > 60 Random Glucose 100 (60-115) mg/dL Calcium 8.9 D (8.4-10.2) mg/dL Magnesium 2.0 (1.6-2.6) mg/dL Beta HCG, Quant < 2 mIU/mL Independent Interpretation I performed an independent interpretation of an: CT Scan Interpretation: CT scan head/brain without bleed or mass, agree with radiologist's interpretation. Radiology Impression Discussion of test interpretation with radiology: I have reviewed the radiologist's reading. Radiologist Impression: EXAMINATION: CT HEAD WITHOUT CONTRAST CLINICAL INFORMATION: Intractable left-sided headache COMPARISON: None available. TECHNIQUE: Contiguous axial imaging was performed from the skull base to vertex without intravenous administration of contrast. This CT examination was performed using dose optimization techniques as appropriate, variously including the following: *Automated exposure control *Adjustment of mA and/or kV according to patient size (this includes techniques or standardized protocols for targeted exams where dose is matched to indication/reason for exam; i.e. extremities or head) *Use of iterative reconstruction technique DLP: 776 mGy-cm FINDINGS: There is no mass hemorrhage or cerebral edema. Ventricles and basal cisterns are normal. No extra-axial fluid collections. Scalp: Normal. Bone: Normal. Sinuses: Mucosal polyp in the inferior aspect of the right maxillary sinus Mastoid air cells: Clear. CT/CT head/brain wo IV con IMPRESSION: 1. No acute intracranial pathology. 2. Mucosal polyp in the right maxillary sinus. External Record Review External record reviewed: Inpatient record, Office record, Outpatient record, Prior outpatient labs, Prior outpatient radiology, Primary care record and Outside ED record Prescription Management I considered prescription management with: Pain Medication Social Determinants Patient?s care significantly limited by Social Determinants of Health including: Other Social Determinant of Health Critical Care Time Critical Care Time Critical Care Time: No Discharge Plan Discharge Clinical Impression: Headache Patient Disposition: Home, Self-Care Instructions: Acute Headache (ED), General Headache (ED) Additional Instructions: Your blood work today was normal. The CT scan of your head without contrast was normal with no significant tumors or bleeding in the brain noted. Sometimes it is difficult to explain the cause of headache but the negative workup today is reassuring. You may take the following 3 medications together every 6 hours as needed for headache, nausea or vomiting. ? Reglan (metoclopramide) in 10 mg Benadryl 25 mg Excedrin migraine After you take these medications, lie down in a dark quiet room and try to fall asleep. ?These medications will make you sleepy, do not drive or work after taking these medications. Follow-up with your doctor in 2 days. Please return to the emergency department if your symptoms get worse or if you develop any symptoms that are concerning to you. Prescriptions: New metoclopramide HCl [Reglan] 10 mg tablet 10 mg PO Q6H 3 Days Qty: 12 0RF diphenhydramine HCl [Benadryl Allergy] 25 mg tablet 50 mg PO Q6-8H Qty: 14 0RF Excedrin Migraine 250-250-65 mg tablet 1 tab PO Q6H PRN (Reason: pain (scale score 4-6)) Qty: 7 0RF No Action Wegovy 0.25 mg/0.5 mL pen injector 0.25 mg subcut QWEEK 28 Days Qty: 2 0RF Rx Instructions: administer weeks 1 through 4 of therapy cholecalciferol (vitamin D3) 25 mcg (1,000 unit) capsule 25 mcg PO DAILY 90 Days Qty: 90 1RF mecobalamin (vitamin B12) 1,000 mcg tablet,chewable 1,000 mcg PO DAILY Qty: 30 0RF ibuprofen 600 mg tablet 600 mg PO Q6H PRN Ref[place]: [facility] [place] [facility] [place] Group] Glenna Burns MD [Primary Care Provider] - Stand Alone Forms: Work/School Release Print Language: [place]
[2024-03-09 07:11] VITALS: BP 126/72; PULSE 72; RESP 14; TEMP 36.7; O2SAT 100
[2024-03-09] MEDS: diphenhydrAMINE HCL 50 MG/ML VIAL 25 MG IVPUSH (07:33)
[2024-03-09] MEDS: Ketorolac Tromethamine 15 MG/ML VIAL IVPUSH (07:34)
[2024-03-09] MEDS: Metoclopramide HCl 10 MG/2 ML VIAL IVPUSH (07:35)
[2024-03-09] MEDS: 0.9 % Sodium Chloride 1,000 ML 999 ML IV (07:40)
[2024-03-09 07:45] LABS: MANUAL DIFF FLAG NO
[2024-03-09 07:48] LABS: Basophils Absolute Auto 0.1 X10*3/uL (0.0-0.2); Basophils Percent Auto 0.5 % (0-2); Eosinophils Absolute Auto 0.1 X10*3/uL (0.0-0.4); Eosinophils Percent Auto 0.9 % (0-4); Hematocrit 40.1 % (37.0-47.0); Hemoglobin 12.6 g/dl (12.0-16.0); Imm Gran Abs Auto 0.04 X10*3/uL (0.00-0.03); Imm Gran Pct Auto 0.4 % (0.0-0.4); Lymphocytes Absolute Auto 1.9 X10*3/uL (1.2-4.9); Lymphocytes Percent Auto 20.1 % (20-40); Mean Corpuscular HGB Conc 31.4 g/dl (31.0-35.0); Mean Corpuscular Hemoglobin 24.4 pg (27.0-33.0); Mean Corpuscular Volume 77.7 fL (80.0-98.0); Mean Platelet Volume 9.7 fL (9.4-12.3); Monocytes Absolute Auto 0.4 X10*3/uL (0.1-1.2); Monocytes Percent Auto 4.4 % (2-11); Neutrophils Absolute Auto 6.9 x10*3/uL (2.0-8.3); Neutrophils Percent Auto 73.7 % (45-73); Platelet Count 418 X10*3/uL (160-400); Red Blood Count 5.16 X10*6/uL (4.20-5.50); Red Cell Distribution Width 14.6 % (11.0-16.0); White Blood Count 9.4 X10*3/uL (4.8-10.8)
--- NOTE | 2024-03-09 08:03 | PC.NURSE ---
Care of Pt assumed at change of shift. IV placed: 20g LAC. Pt medicated per OCT. A&Ox3, VSS, and afebrile. Pt is resting comfortably on bed. Awaiting CT results.
[2024-03-09 08:14] LABS: Chloride 106 mmol/L (96-108); HCG Quantitative < 2 mIU/mL; Potassium 4.1 mmol/L (3.3-5.1); Sodium 139 mmol/L (135-145)
[2024-03-09 09:03] LABS: Anion Gap 13 (12-20); Blood Urea Nitrogen 11 mg/dL (9-16); Calcium 8.9 mg/dL (8.4-10.2); Carbon Dioxide 25 mmol/L (22-29); Creatinine Clr Calc Pharmacy 148.7; Estimated Glomerular Filt Rate > 60; Glucose Random 100 mg/dL (60-115)
[2024-03-09 09:49] VITALS: BP 126/72; PULSE 72; RESP 14; TEMP 36.7; O2SAT 100
== END 2024-03-09 09:52 | disposition home or self-care (01) ==
PROVIDERS: Physician Assistant Medical; Emergency Provider Emergency Medicine; PCP Internal Medicine
DX: R51.9 Headache, unspecified (principal); H53.143 Visual discomfort, bilateral; R11.2 Nausea with vomiting, unspecified; Z79.899 Other long term (current) drug therapy
CPT/HCPCS: 36415; 70450; 80048; 83735; 84702; 85025; 96360; 96374; 96376; 99284; 99285; J1200; J1885; J2765

== ENCOUNTER 2024-04-14 10:38 | Outpatient (REF) | payer OTHER, SELFPAY ==
[2024-04-18 10:03] LABS: HPV mRNA E6/E7 Not Detected (Not Detected)
== END 2024-04-14 10:39 | disposition home or self-care (01) ==
LOC: HO.HHCLNP 10:38
PROVIDERS: PCP Internal Medicine; Visit Provider Advanced Practice Midwife
DX: Z01.419 Encounter for gynecological examination (general) (routine) without abnormal findings (principal); Z12.39 Encounter for other screening for malignant neoplasm of breast; Z87.42 Personal history of other diseases of the female genital tract; E66.01 Morbid (severe) obesity due to excess calories; Z68.43 Body mass index [BMI] 50.0-59.9, adult
CPT/HCPCS: 36415; 87624; 88175; 99395

== ENCOUNTER 2024-04-14 10:38 | Outpatient (AMB) | payer OTHER, SELFPAY ==
[2024-04-14 10:57] VITALS: BP 122/78; BMI 52.2
--- NOTE | 2024-04-14 10:57 | MHC.OFFVIS ---
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 Apprentice Required: No Welder Apprentice Services: Welder Apprentice Present Information Interpreted: clinical only Spa Experience Coordinator: Spa Experience Coordinator Present Allergies No Known Allergies Allergy (Verified 04/14/24 10:58) Medication List - Last Reconciled 04/14/24 by Lorna Moreno CNM [id number] 250-250-65 mg (Excedrin Migraine) 1 tab PO Q6H PRN cholecalciferol (vitamin D3) 25 mcg PO DAILY 90 days diphenhydramine HCl (Benadryl Allergy) 50 mg (2 x 25 mg) PO Q6-8H ibuprofen 600 mg PO Q6H PRN mecobalamin (vitamin B12) 1,000 mcg PO DAILY semaglutide (weight loss) (Wegovy) 0.5 mg (0.5 mL) subcut QWEEK 4 weeks Is last menstrual period known: Yes Last menstrual period: 03/29/24 HPI HPI 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 She has had a lifelong struggle with weight and was trying to weight loss program shakes me to constipated and then she got fiber gummies and when she took those she started having bright red blood in her stool so she was awaiting an appointment for gastroenterology today but it got rescheduled to later in the month. She had a mass that she was concerned about left breast last year but mammogram and ultrasound turned out fine She has tried a lot of boots with weight loss currently she is on were Bovie but she did not take yesterday's dose because she felt like she was feeling sad with it and she knows that that is side effect this is her 2nd those of the increased dose she is involved with the weight loss support group of people using this to help them so they compare notes online. She was a bit discouraged she has not seen much in the way weight loss yet. She had lost some weight with the shakes but then gained it. 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 and then is very busy afterwards bringing kids to different sports activities. [facility] Medical History Family history of diabetes mellitus Surgical History History of D&C Family History Father Pulmonary embolism Mother Thyroid disease Other Family history of diabetes mellitus Social History Household Members: Family and Children Housing: House Alcohol intake: current Alcohol intake frequency: holidays/special occasions only Alcohol type: beer Patient Tobacco Use Status: Never used Tobacco e-Cigarette/Vaping Use: Never Used Second Hand Smoke Exposure: No service: No Current occupational status: employed Current occupation: [employer] Current occupational exposures/hazards: No Cognitive needs: No Hearing needs: No Vision needs: No Female Reproductive History Menstrual Age of Menarche: 10 Date of last menstrual period: 03/29/24 control method: none Total pregnancies: 3 Full term: 3 Date of last pap smear: 03/22/23 (negative) History of abnormal pap smear: Yes (2019,ASCUS) Physical Exam Vital Signs: Last Vital Signs BP 122/78 04/14/24 10:57 BMI result Body Mass Index 52.2 Const General: healthy appearing, comfortable, no acute distress, well developed and alert Nutritional Appearance: average body habitus Orientation/consciousness: patient oriented x3 Limitations: no limitations HEENT Head: Yes normocephalic Neck Neck: Yes normal visual inspection Chest Chest palpation & inspection: normal inspection of the chest Breast/axilla inspection: normal inspection of the breasts and normal inspection of the axillae Breast/axilla palpation: normal palpation of the breasts and normal palpation of the axillae Resp Effort & Inspection: normal respiratory effort GI Inspection: Yes normal to inspection, No Abdominal wall edema and No distended Palpation (GI): Soft to palpation and nontender Other: Normal external exam right labia markedly larger than left. Vagina pink and moist cervix multiparous pink smooth with cervical polyp seen in os at 04:00 o'clock. Cervix long close thick mobile nontender difficult to feel uterus secondary to adipose unable to feel adnexa though not enlarged and nontender good tone w Kegel General: Yes bladder normal to palpation External Female Exam: normal external appearance and normal appearance of the urethra Speculum Exam - Vagina: normal appearance of the vagina, normal palpation and normal vaginal discharge Speculum Exam - Cervix: normal appearance of the cervix, normal palpation and nontender Bimanual exam- vagina & uterus: normal bimanual exam, normal palpation, uterine size normal, bladder normal to palpation, consistency normal, normal palpation, uterine mobility normal, uterine shape normal, No Cervical tenderness present, non-tender and no cervical motion tenderness Bimanual Exam- Adnexa, other: normal adnexae, no masses, normal and No adnexal tenderness Neuro General: patient oriented x3 Results Reviewed Results Reviewed: Name: Christen Cavazos Age/Sex: 32/F Attending: Lorna Moreno CNM : 1990 Submitted by: Lorna Moreno CNM Copies to: Glenna Burns MD MR #: [id number] Status: DEP REF Collected: 03/22/23 Location: [facility] Received: 03/27/23 Interpretation Satisfactory for evaluation. Negative for intraepithelial lesion or malignancy. HPV mRNA E6/E7: NOT DETECTED This assay detects E6/E7 viral messenger RNA (mRNA) from 14 high-risk HPV types (16, 18, 31, 33, 35, 39, 45, 51, 52, 56, 58, 59, 66, 68) HPV testing performed by [facility] [facility], [place], [place]. See reference laboratory pion of the EMR for entire report. Clinical Information LMP: 03/15/23 Previous PAP test: 07/07/19, Abnormal Other history: Hx of ASCUS Material Received ThinPrep-Cervical Copies To Lorna Moreno [address] [place] [address] Glenna Burns [address] [place] [address] Electronically Signed By: MIGUELINA Martinez (ASCP) 04/04/23 1341 The Pap Test is a screening procedure with the inherent possibility of both false negative and false positive results. Results should be interpreted in the context of historic and current clinical findings. Reliability of the Pap Test is enhanced by performing the test on a regular repetitive basis. Patient: Christen Cavazos Age/Sex: 32/F [id number] MR#: [id number] Page 1 of 1 Assessment & Plan Assessment & Plan (1) Breast cancer screening: Code(s): Z12.39 - Encounter for other screening for malignant neoplasm of breast Category: Medical (2) Hx of abnormal cervical Pap smear: Comment: ascus in past; 03/22/2023 Pap is negative with negative HPV.; cervical polyp seen 04/14 exam Pap done, refer for eval Code(s): Z87.42 - Personal history of other diseases of the female genital tract Category: Medical (3) Morbid obesity with BMI of 50.0-59.9, adult: Code(s): E66.01 - Morbid (severe) obesity due to excess calories; Z68.43 - Body mass index [BMI] 50.0-59.9, adult Category: Medical (4) Cervical polyp: Code(s): N84.1 - Polyp of cervix uteri Category: Medical Plan -----Discussed in this visit the following: healthy balanced diet, regular and consistent exercise, getting recommended health screens, doing the best she can for her particular health concerns, kegel exercises, pap smear screening and followup recommendations, mammography screening and SBE, normal changes in cycles in her life stage--- . Reviewed her lifelong issues with being overweight and self-image self-esteem efforts that she has tried and is trying currently and the many challenges and suggested possible ways to sneak in her hips 30 minutes of increased activity doing a day either before work in the morning or at lunch. Applauded her efforts thus far and encouraged her not to give up on herself. She is aware that she already has fatty liver. Encouraged her to continue her efforts that this is a really good time to try to make headway on the weight loss and while she may always see herself as a big person she will feel better with weight loss and that is something to aim for. She is not sexually active least the last couple of years so declined any testing for STIs Pap smear was going to be deferred but cervical polyp visible decision made to do Pap smear for thoroughness we will refer to gynecology for evaluation of the cervical polyp. Orders: Orders PAP + HPV E6/E7 rfx 1845 Today Z01.419 - Encounter for gynecological examination (general) (routine) without abnormal findings Coding Level of Care Code Est Pt Prev Care 18-39y(88893) Diagnoses Breast cancer screening Z12.39 Hx of abnormal cervical Pap smear Z87.42 Morbid obesity with BMI of 50.0-59.9, adult E66.01; Z68.43 Cervical polyp N84.1
== END 2024-04-14 12:01 | disposition home or self-care (01) ==
LOC: HO.HWSM 10:38
PROVIDERS: PCP Internal Medicine; Visit Provider Advanced Practice Midwife
DX: Z01.419 Encounter for gynecological examination (general) (routine) without abnormal findings (principal); Z87.42 Personal history of other diseases of the female genital tract; E66.01 Morbid (severe) obesity due to excess calories; Z68.43 Body mass index [BMI] 50.0-59.9, adult
CPT/HCPCS: 99395

== ENCOUNTER 2024-05-07 13:07 | Outpatient (REF) | payer OTHER, SELFPAY | END 2024-05-07 13:08 | disposition home or self-care (01) | LOC: HO.LNP 13:07 | PROVIDERS: PCP Internal Medicine; Visit Provider Obstetrics & Gynecology | DX: N84.1 Polyp of cervix uteri (principal) | CPT/HCPCS: 57500; 81025; 88305 ==

== ENCOUNTER 2024-05-07 13:07 | Outpatient (AMB) | payer OTHER, SELFPAY ==
--- NOTE | 2024-05-07 13:16 | MHC.OFFVIS ---
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 Information Interpreted: non-clinical & clinical Events Solutions Consultant: Events Solutions Consultant Present (Flakita Loera LAURA) Accompanied by: Self / Same As Patient Allergies No Known Allergies Allergy (Verified 05/07/24 13:31) HPI Comments Details: Presenting referred from Lorna Moreno CNM regarding cervical lesion on pelvic exam last co testing was negative in 04/19 [facility] Medical History Family history of diabetes mellitus Surgical History History of D&C Family History Father Pulmonary embolism Mother Thyroid disease Other Family history of diabetes mellitus Social History Household Members: Family and Children Housing: House Alcohol intake: current Alcohol intake frequency: holidays/special occasions only Alcohol type: beer Patient Tobacco Use Status: Never used Tobacco e-Cigarette/Vaping Use: Never Used Second Hand Smoke Exposure: No service: No Current occupational status: employed Current occupation: [employer] Current occupational exposures/hazards: No Cognitive needs: No Hearing needs: No Vision needs: No Female Reproductive History Menstrual Age of Menarche: 10 Review of Systems Const All systems reviewed & are unremarkable except as noted in HPI and below Physical Exam General: Yes no CVA tenderness External Female Exam: normal external appearance and normal appearance of the urethra Speculum Exam - Vagina: normal appearance of the vagina, normal palpation, no lesions and no masses Speculum Exam - Cervix: normal appearance of the cervix, normal palpation, no lesions, no masses, nontender and Other cervical findings present (04:00 o'clock cervical lesion) Bimanual exam- vagina & uterus: normal bimanual exam, normal palpation, uterine size normal, normal palpation, uterine shape normal, No Cervical tenderness present and non-tender Bimanual Exam- Adnexa, other: normal adnexae Back/Spine/Pelvis Back: no CVA tenderness Office Procedures VEHICLE REFINISHER Biopsy Before the procedure was started, discussed with the patient the procedure technique, alternatives & all the risks associated with the procedure including but not limited to: bleeding , infection, uterine perforation, injury to bladder, vessels, bowels, possible need for transfusion with all its risks, and others. All questions were answered, the patient verbalized understanding and signed the consent. Urine test done in the office was negative Using a long punch biopsy forceps the 04:00 o'clock cervical lesion was biopsied, hemostasis was secured using pressure and Monsel's solution. The patient tolerated the procedure well. Instructions were given to the patient to call if bleeding, temp>100.4 occur and to schedule a 2 week follow-up appointment. The patient verbalized understanding and agreed with the plan. This note was generated with a voice recognition program. Some errors may have been overlooked during the review of this note. Sometimes these errors may affect the content or meaning of a given sentence. [id number]-Yzmyuo of Cervix Procedure code (CPT) selection complete Results AMB Test Urine AMB Test Urine Negative Last Edit by Flakita Loera CMA on 05/07/24 13:31 Assessment & Plan Assessment & Plan (1) Lesion of cervix: Comment: 04:00 o'clock Code(s): N88.9 - Noninflammatory disorder of cervix uteri, unspecified Category: Medical Plan: Discussed with the patient the finding on pelvic exam showing a 04:00 o'clock cervical lesion, recommended cervical biopsy. Cervical biopsy done, see procedure note Instructions given the patient to schedule a 2 week follow-up appointment All questions answered, the patient verbalized understanding Orders: Orders AMB HCG Urine Test Today Z32.02 - Encounter for test, result negative AMB VEHICLE REFINISHER Biopsy Today N88.9 - Noninflammatory disorder of cervix uteri, unspecified Coding Level of Care Code Procedure Only Diagnoses Lesion of cervix N88.9 CPT Codes VEHICLE REFINISHER Biopsy - CPT: 27520-Xzpwzp of Cervix ([id number])
[2024-05-07 13:30] VITALS: BMI 52.1
== END 2024-05-07 13:57 | disposition home or self-care (01) ==
PROVIDERS: PCP Internal Medicine; Visit Provider Obstetrics & Gynecology
DX: N88.9 Noninflammatory disorder of cervix uteri, unspecified (principal); N84.1 Polyp of cervix uteri; Z32.02 Encounter for pregnancy test, result negative
CPT/HCPCS: 57500

== ENCOUNTER 2024-05-16 13:36 | Outpatient (AMB) | payer OTHER, SELFPAY ==
--- NOTE | 2024-05-16 13:40 | A.OFFVIS_ITS ---
Vital Signs 05/16/24 13:41 Height 5 ft 5 in Weight 324 lb 1.272 oz BMI 53.9 BP 135/67 Blood Pressure Location Lt brachial Position Sitting Pulse 97 Intake Visit Reasons: [place] Screening Intake Note: Christen presents in the office as a new patient colonoscopy screening. She states that she has concerns - she states that she has been having bloody stools. She states it does not matter the consistency of the stool but it is bright red. Databases Software Consultant Required: No Allergies No Known Allergies Allergy (Verified 05/16/24 13:42) HPI Comments Details: This is a 33-year-old female with past medical history of obesity, who is presenting for constipation and rectal bleeding. Patient reports that she 1st started noticing some rectal bleeding specially on wiping a year ago. At that time, associated this with fiber gummies. This went away after she discontinued the fiber gummies and protein shakes. However, since move this year, this has recurred. Stools range from hard pellets to soft. Strains often. No digitalization or splinting. Notices blood after passage of stool or on wiping. Stool itself was brown. No unintentional weight loss, in fact has gained back the weight that she was losing while she was enrolled in the bariatric program. Labs reviewed, no anemia. [facility] Medical History Family history of diabetes mellitus Surgical History History of D&C Family History (Updated 05/16/24 @ 13:43 by LAURA Haney) Father Pulmonary embolism Mother Thyroid disease Gastroenteritis Bleeding hemorrhoids Other Family history of diabetes mellitus Social History Household Members: Family and Children Housing: House Alcohol intake: current Alcohol intake frequency: holidays/special occasions only Alcohol type: beer Patient Tobacco Use Status: Never used Tobacco e-Cigarette/Vaping Use: Never Used Second Hand Smoke Exposure: No service: No Current occupational status: employed Current occupation: [employer] Current occupational exposures/hazards: No Cognitive needs: No Hearing needs: No Vision needs: No Female Reproductive History Menstrual Age of Menarche: 10 Review of Systems Const All systems reviewed & are unremarkable except as noted in HPI and below Physical Exam Vital Signs: Last Vital Signs Pulse 97 05/16/24 13:41 BP 135/67 05/16/24 13:41 BMI result Body Mass Index 53.9 No apparent distress Nonicteric Abdomen soft, nondistended Rectal: (Jerri Stanley present as producer director): 1 external hemorrhoid. No anal fissure appreciated. Large internal hemorrhoids. No blood on gloved finger. Alert and oriented x3, normal gait Assessment & Plan Assessment & Plan (1) Rectal bleeding: Code(s): K62.5 - Hemorrhage of anus and rectum Category: Medical (2) Hemorrhoids: Code(s): K64.9 - Unspecified hemorrhoids Category: Medical Plan Presentation and exam consistent with bleeding internal hemorrhoids. Reviewed risk factors in lifestyle changes to help prevent further aggravation. Plan: -avoid constipation and straining -improve hydration -add fiber -MiraLax once to twice daily to keep stool soft -elevate legs while having bowel movement -topical hydrocortisone to be applied at nighttime for 10-14 days -no red flags to indicate urgent endoscopic evaluation at this time Follow-up in 6-8 weeks to review response Medications: New polyethylene glycol 3350 (Miralax) 17 grams PO DAILY 30 days 510 grams 1RF hydrocortisone 2.5% 1 appl VA BID-QID 14 days PRN 30 grams 0RF hemorrhoids Coding Level of Care Code New Pt Level 4 (43014) Diagnoses Rectal bleeding K62.5 Hemorrhoids K64.9
[2024-05-16 13:41] VITALS: BP 135/67; PULSE 97; BMI 53.9
== END 2024-05-16 14:15 | disposition home or self-care (01) ==
PROVIDERS: PCP Internal Medicine; Visit Provider Internal Medicine
DX: K62.5 Hemorrhage of anus and rectum (principal); K64.9 Unspecified hemorrhoids
CPT/HCPCS: 99204

== ENCOUNTER → 2024-05-16 13:36 | Outpatient (BNVA) | payer OTHER, SELFPAY | PROVIDERS: PCP Internal Medicine; Visit Provider Internal Medicine | DX: K62.5 Hemorrhage of anus and rectum (principal); K64.9 Unspecified hemorrhoids | CPT/HCPCS: 99202 ==

== ENCOUNTER 2024-05-28 08:06 | Outpatient (AMB) | payer OTHER, SELFPAY ==
--- NOTE | 2024-05-28 08:15 | MHC.OFFVIS ---
Vital Signs 05/28/24 08:17 Height 5 ft 5 in Weight 324 lb 1.272 oz BMI 53.9 Intake Visit Reasons: EMB Results/ok per Flakita Hot Mill Observer Required: No Information Interpreted: non-clinical & clinical Accompanied by: Self / Same As Patient Allergies No Known Allergies Allergy (Verified 05/28/24 08:18) HPI Comments Details: Presenting for follow-up regarding cervical biopsy lesion, doing well with no complaints. The pathology showed the following: Cervix, 4:00, lesion, biopsy: Benign cervical/endocervical polyp with inflammation and reactive changes; negative for dysplasia [facility] Medical History Family history of diabetes mellitus Surgical History History of D&C Family History Father Pulmonary embolism Mother Thyroid disease Gastroenteritis Bleeding hemorrhoids Other Family history of diabetes mellitus Social History Household Members: Family and Children Housing: House Alcohol intake: current Alcohol intake frequency: holidays/special occasions only Alcohol type: beer Patient Tobacco Use Status: Never used Tobacco e-Cigarette/Vaping Use: Never Used Second Hand Smoke Exposure: No service: No Current occupational status: employed Current occupation: [employer] Current occupational exposures/hazards: No Cognitive needs: No Hearing needs: No Vision needs: No Female Reproductive History Menstrual Age of Menarche: 10 Review of Systems Const All systems reviewed & are unremarkable except as noted in HPI and below Reports as per HPI and Reports no additional complaints GI Reports no additional complaints Reports no additional complaints Physical Exam Vital Signs: BMI result Body Mass Index 53.9 Assessment & Plan Assessment & Plan (1) Endocervical polyp: Code(s): N84.1 - Polyp of cervix uteri Category: Medical Plan: Recommended the pelvic exam for reinspection removal of any remaining portion of the endocervical polyp, the patient would like to schedule an appointment for that in few weeks. Instructions given the patient to schedule an endocervical polypectomy appointment All questions answered, the patient verbalized understanding. Coding Level of Care Code Est Pt Level 3 (30504) Diagnoses Endocervical polyp N84.1
[2024-05-28 08:17] VITALS: BMI 53.9
== END 2024-05-28 08:28 | disposition home or self-care (01) ==
PROVIDERS: PCP Internal Medicine; Visit Provider Obstetrics & Gynecology
DX: N84.1 Polyp of cervix uteri (principal)
CPT/HCPCS: 99213

== ENCOUNTER → 2024-05-28 08:06 | Outpatient (BNVA) | payer OTHER, SELFPAY | PROVIDERS: PCP Internal Medicine; Visit Provider Obstetrics & Gynecology | DX: N84.1 Polyp of cervix uteri (principal) | CPT/HCPCS: 99212 ==

== ENCOUNTER 2024-06-11 09:31 | Outpatient (AMB) | payer OTHER, SELFPAY ==
[2024-06-11 09:35] VITALS: BMI 53.9
--- NOTE | 2024-06-11 09:35 | MHC.OFFVIS ---
Vital Signs 06/11/24 09:35 Height 5 ft 5 in Weight 324 lb 1.272 oz BMI 53.9 Intake Visit Reasons: Pelvic exam/polypectomy Health Screener Required: No Information Interpreted: non-clinical & clinical Lace Roller: Lace Roller Present (Flakita SANCHEZ) Accompanied by: Self / Same As Patient Allergies No Known Allergies Allergy (Verified 06/11/24 09:39) Is last menstrual period known: Yes Last menstrual period: 05/20/24 HPI Comments Details: Presenting for reexamination to inspect 04:00 o'clock cervical polyp. [facility] Medical History Family history of diabetes mellitus Surgical History History of D&C Family History Father Pulmonary embolism Mother Thyroid disease Gastroenteritis Bleeding hemorrhoids Other Family history of diabetes mellitus Social History Household Members: Family and Children Housing: House Alcohol intake: current Alcohol intake frequency: holidays/special occasions only Alcohol type: beer Patient Tobacco Use Status: Never used Tobacco e-Cigarette/Vaping Use: Never Used Second Hand Smoke Exposure: No service: No Current occupational status: employed Current occupation: [employer] Current occupational exposures/hazards: No Cognitive needs: No Hearing needs: No Vision needs: No Female Reproductive History Menstrual Age of Menarche: 10 Date of last menstrual period: 05/20/24 Review of Systems Const All systems reviewed & are unremarkable except as noted in HPI and below Physical Exam Vital Signs: BMI result Body Mass Index 53.9 General: Yes no CVA tenderness External Female Exam: normal external appearance and normal appearance of the urethra Speculum Exam - Vagina: normal appearance of the vagina, normal palpation, no lesions and no masses Speculum Exam - Cervix: normal palpation, Cervical lesion present (04:00 o'clock endocervical polyp), no masses and nontender Bimanual exam- vagina & uterus: normal bimanual exam, normal palpation, uterine size normal, normal palpation, uterine shape normal, No Cervical tenderness present and non-tender Bimanual Exam- Adnexa, other: normal adnexae Back/Spine/Pelvis Back: no CVA tenderness Office Procedures SUPERVISOR PAPER TESTING Biopsy Before the procedure was started, discussed with the patient the procedure technique, alternatives & all the risks associated with the procedure including but not limited to: bleeding , infection, uterine perforation, injury to bladder, vessels, bowels, possible need for transfusion with all its risks, and others. All questions were answered, the patient verbalized understanding and signed the consent. Urine test done in the office was negative Using a long Corine Clamp and punch biopsy forceps the endocervical polyp was grasped and twisted around till it came off, this was followed by excision using punch biopsy for the remaining portion of the endocervix hemostasis was secured using pressure. The patient tolerated the procedure well. Instructions were given to the patient to call if bleeding, temp>100.4 occur. The patient verbalized understanding and agreed with the plan. This note was generated with a voice recognition program. Some errors may have been overlooked during the review of this note. Sometimes these errors may affect the content or meaning of a given sentence. 21326-Ijjhpb of Cervix Procedure code (CPT) selection complete Assessment & Plan Assessment & Plan (1) Endocervical polyp: Code(s): N84.1 - Polyp of cervix uteri Category: Medical Plan: Discussed with the patient the finding on pelvic exam, 04:00 o'clock endocervical polyp, recommended endo cervical polypectomy, the patient agreed, see procedure note Orders: Orders AMB SUPERVISOR PAPER TESTING Biopsy Today N84.1 - Polyp of cervix uteri Coding Level of Care Code Procedure Only Diagnoses Endocervical polyp N84.1 CPT Codes SUPERVISOR PAPER TESTING Biopsy - CPT: 38958-Mfpzdp of Cervix ([id number])
== END 2024-06-11 10:11 | disposition home or self-care (01) ==
PROVIDERS: PCP Internal Medicine; Visit Provider Obstetrics & Gynecology
DX: N84.1 Polyp of cervix uteri (principal)
CPT/HCPCS: 57500

== ENCOUNTER 2024-06-11 09:31 | Outpatient (REF) | payer OTHER, SELFPAY | END 2024-06-11 09:32 | disposition home or self-care (01) | LOC: HO.LNP 09:31 | PROVIDERS: PCP Internal Medicine; Visit Provider Obstetrics & Gynecology | DX: N84.1 Polyp of cervix uteri (principal) | CPT/HCPCS: 57500; 88305 ==

== ENCOUNTER 2024-07-23 09:03 | Outpatient (AMB) | payer OTHER, SELFPAY ==
[2024-07-23 09:05] VITALS: BP 132/74; PULSE 79; BMI 54.3
--- NOTE | 2024-07-23 09:05 | MHC.OFFVIS ---
Vital Signs 07/23/24 09:05 Height 5 ft 5 in Weight 326 lb 4.546 oz BMI 54.3 BP 132/74 Blood Pressure Location Lt brachial Position Sitting Pulse 79 Intake Visit Reasons: 2 month follow up Intake Note: Patient presents in office today in 2 months follow up of constipation and rectal bleeding. CC: Patient reports that everything is way better since her last visit. Per patient she's only had two episodes of rectal bleeding and she is having regular BMs almost every tova. Allergies No Known Allergies Allergy (Verified 07/23/24 09:11) HPI Comments Details: This is a 33-year-old female with past medical history of obesity, who is presenting for constipation and rectal bleeding. Patient reports that she 1st started noticing some rectal bleeding specially on wiping a year ago. At that time, associated this with fiber gummies. This went away after she discontinued the fiber gummies and protein shakes. However, since move this year, this has recurred. Stools range from hard pellets to soft. Strains often. No digitalization or splinting. Notices blood after passage of stool or on wiping. Stool itself was brown. No unintentional weight loss, in fact has gained back the weight that she was losing while she was enrolled in the bariatric program. Labs reviewed, no anemia. 07/23/24: Here for follow up. Reports things have improved dramatically since last visit. Used topical hydrocort x 1 week and hasnt needed it since. Has gone from having rectal bleeding every day to two instances in the last 2 months. The last episode last week was with considerable amount of blood however despite having a soft BM. Has been having regular BMs daily. Took miralax a few times to help with PRN constipation. Has changed the workplace and this job is much low stress. [facility] Medical History Family history of diabetes mellitus Surgical History History of D&C Family History Father Pulmonary embolism Mother Thyroid disease Gastroenteritis Bleeding hemorrhoids Other Family history of diabetes mellitus Social History Household Members: Family and Children Housing: House Alcohol intake: current Alcohol intake frequency: holidays/special occasions only Alcohol type: beer Patient Tobacco Use Status: Never used Tobacco e-Cigarette/Vaping Use: Never Used Second Hand Smoke Exposure: No service: No Current occupational status: employed Current occupation: [employer] Current occupational exposures/hazards: No Cognitive needs: No Hearing needs: No Vision needs: No Female Reproductive History Menstrual Age of Menarche: 10 Review of Systems Const All systems reviewed & are unremarkable except as noted in HPI and below Physical Exam Vital Signs: Last Vital Signs Pulse 79 07/23/24 09:05 BP 132/74 07/23/24 09:05 BMI result Body Mass Index 54.3 No apparent distress Nonicteric Abdomen soft, nondistended Rectal deferred today. 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 No anal fissure appreciated. Large internal hemorrhoids. No blood on gloved finger. Alert and oriented x3, normal gait Assessment & Plan Assessment & Plan (1) Rectal bleeding: Code(s): K62.5 - Hemorrhage of anus and rectum Category: Medical (2) Hemorrhoids: Code(s): K64.9 - Unspecified hemorrhoids Category: Medical Plan Presentation and exam consistent with bleeding internal hemorrhoids. Reviewed risk factors in lifestyle changes to help prevent further aggravation. Given recurrence of rectal bleeding despite regular BM without straining will book for flex sig for further eval to r/o other causes such as SURS, fissure, large friable polyp, mass etc. Plan: - Flex sig to be booked - Pt requests this to be done without anesthesia which is reasonable - CLD the day before - Fleet enema the evening before flex sig and repeat the morning of flex sig Follow up after flex sig Medications: New bisacodyl (Fleet Bisacodyl) 10 mg rectally once the night before the procedure, and repeat 1h before procedure; 74 mL 0RF constipation Coding Level of Care Code Est Pt Level 4 (50245) Diagnoses Rectal bleeding K62.5 Hemorrhoids K64.9
== END 2024-07-23 10:16 | disposition home or self-care (01) ==
PROVIDERS: PCP Internal Medicine; Visit Provider Internal Medicine
DX: K62.5 Hemorrhage of anus and rectum (principal); K64.9 Unspecified hemorrhoids
CPT/HCPCS: 99214

== ENCOUNTER 2024-07-23 09:03 | Outpatient (REF) | payer OTHER, SELFPAY ==
[2024-07-23 11:00] LABS: Basophils Absolute Auto 0.1 X10*3/uL (0.0-0.2); Basophils Percent Auto 0.7 % (0-2); Eosinophils Absolute Auto 0.3 X10*3/uL (0.0-0.4); Eosinophils Percent Auto 2.8 % (0-4); Hematocrit 38.5 % (37.0-47.0); Hemoglobin 11.9 g/dl (12.0-16.0); Imm Gran Abs Auto 0.04 X10*3/uL (0.00-0.03); Imm Gran Pct Auto 0.4 % (0.0-0.4); Lymphocytes Absolute Auto 3.2 X10*3/uL (1.2-4.9); Lymphocytes Percent Auto 30.1 % (20-40); MANUAL DIFF FLAG NO; Mean Corpuscular HGB Conc 30.9 g/dl (31.0-35.0); Mean Corpuscular Hemoglobin 23.7 pg (27.0-33.0); Mean Corpuscular Volume 76.7 fL (80.0-98.0); Monocytes Absolute Auto 0.5 X10*3/uL (0.1-1.2); Monocytes Percent Auto 4.7 % (2-11); Neutrophils Absolute Auto 6.5 x10*3/uL (2.0-8.3); Neutrophils Percent Auto 61.3 % (45-73); Platelet Count 506 X10*3/uL (160-400); Red Blood Count 5.02 X10*6/uL (4.20-5.50); Red Cell Distribution Width 14.6 % (11.0-16.0); White Blood Count 10.6 X10*3/uL (4.8-10.8)
[2024-07-23 11:46] LABS: Vitamin D 25-OH Total 19.2 ng/mL (>30)
== END 2024-07-23 09:04 | disposition home or self-care (01) ==
LOC: HO.LAB 09:03
PROVIDERS: PCP Internal Medicine; Visit Provider Internal Medicine
DX: K62.5 Hemorrhage of anus and rectum (principal); K64.9 Unspecified hemorrhoids; E66.01 Morbid (severe) obesity due to excess calories; Z68.43 Body mass index [BMI] 50.0-59.9, adult; E55.9 Vitamin D deficiency, unspecified
CPT/HCPCS: 36415; 82306; 85025; 99212

== ENCOUNTER 2024-07-30 12:01 | Outpatient (AMB) | payer OTHER, SELFPAY ==
--- NOTE | 2024-07-30 12:02 | A.OFFVIS_ITS ---
Vital Signs 07/30/24 12:03 Height 5 ft 5 in Weight 326 lb 4.546 oz BMI 54.3 Intake Visit Reasons: Biopsy Results Allergies No Known Allergies Allergy (Verified 07/23/24 09:11) HPI Comments Details: Presenting post cervical biopsy removal doing well with no complaints. The pathology showed the following: Cervical polyp, removal: Benign endocervical polyp. [facility] Medical History Family history of diabetes mellitus Surgical History History of D&C Family History Father Pulmonary embolism Mother Thyroid disease Gastroenteritis Bleeding hemorrhoids Other Family history of diabetes mellitus Social History Household Members: Family and Children Housing: House Alcohol intake: current Alcohol intake frequency: holidays/special occasions only Alcohol type: beer Patient Tobacco Use Status: Never used Tobacco e-Cigarette/Vaping Use: Never Used Second Hand Smoke Exposure: No service: No Current occupational status: employed Current occupation: [employer] Current occupational exposures/hazards: No Cognitive needs: No Hearing needs: No Vision needs: No Female Reproductive History Menstrual Age of Menarche: 10 Review of Systems Const All systems reviewed & are unremarkable except as noted in HPI and below Reports as per HPI and Reports no additional complaints GI Reports no additional complaints Reports no additional complaints Assessment & Plan Assessment & Plan (1) Cervical polyp: Code(s): N84.1 - Polyp of cervix uteri Category: Medical Plan: Discussed with the patient the results the pathology, the patient was reassured. All questions answered, the patient verbalized understanding. Coding Level of Care Code Est Pt Level 3 (83822) Diagnoses Cervical polyp N84.1
[2024-07-30 12:03] VITALS: BMI 54.3
== END 2024-07-30 12:06 | disposition home or self-care (01) ==
LOC: HO.HWS 12:01
PROVIDERS: PCP Internal Medicine; Visit Provider Obstetrics & Gynecology
DX: N84.1 Polyp of cervix uteri (principal)
CPT/HCPCS: 99213

== ENCOUNTER → 2024-07-30 12:01 | Outpatient (BNVA) | payer OTHER, SELFPAY | PROVIDERS: PCP Internal Medicine; Visit Provider Obstetrics & Gynecology | DX: N84.1 Polyp of cervix uteri (principal) | CPT/HCPCS: 99212 ==

== ENCOUNTER 2025-03-12 08:11 | Outpatient (AMB) | payer OTHER, SELFPAY ==
--- NOTE | 2025-03-12 08:36 | MHC.OFFVIS ---
Vital Signs 03/12/25 08:37 Height 5 ft 5 in Weight 324 lb BMI 53.9 BP 130/74 Blood Pressure Location Rt brachial Position Sitting Intake Visit Reasons: R breast pain per Lorri BRIONES Intake Note: right breast lump this sunday03/10/25 Information Interpreted: clinical only Accompanied by: Self / Same As Patient Allergies No Known Allergies Allergy (Verified 03/12/25 08:40) Medication List - Last Reconciled 03/12/25 by Vero Holland LPN bisacodyl (Fleet Bisacodyl) 10 mg rectally once the night before the procedure, and repeat 1h before procedure; cholecalciferol (vitamin D3) 50 mcg PO DAILY 90 days hydrocortisone 2.5% 1 appl OR BID-QID PRN 14 days ibuprofen 600 mg PO Q6H PRN Is last menstrual period known: Yes Last menstrual period: 03/12/25 Post menopausal: No Patient : No Followed by:: Vero Holland LPN Do you need a note to return to daycare/school/sports/work: No HPI Comments Details: Patient is here today with concerns of finding a right breast lump this week, is nontender. She denies any nipple discharge, injury or prior surgeries to the breast. She denies any family history of breast cancer. [facility] Medical History (Updated 03/12/25 @ 09:06 by Jaimee Sawyer CNM) Lump of right breast Family history of diabetes mellitus Surgical History History of D&C Family History Father Pulmonary embolism Mother Thyroid disease Gastroenteritis Bleeding hemorrhoids Other Family history of diabetes mellitus Social History Household Members: Family and Children Housing: House Alcohol intake: current Alcohol intake frequency: holidays/special occasions only Alcohol type: beer Patient Tobacco Use Status: Never used Tobacco e-Cigarette/Vaping Use: Never Used Second Hand Smoke Exposure: No service: No Current occupational status: employed Current occupation: [employer] Current occupational exposures/hazards: No Cognitive needs: No Hearing needs: No Vision needs: No Female Reproductive History Menstrual Age of Menarche: 10 Date of last menstrual period: 03/12/25 control method: abstinence Total pregnancies: 3 Number of Living Children: 3 History of abnormal pap smear: Yes (Lee 2012) Review of Systems Const All systems reviewed & are unremarkable except as noted in HPI and below Reports no additional complaints Skin/Breast Reports system reviewed and no additional complaints, except as documented and Reports as per HPI Physical Exam Vital Signs: Last Vital Signs BP 130/74 03/12/25 08:37 BMI result Body Mass Index 53.9 Const General: cooperative, healthy appearing and no acute distress Chest Breast/axilla inspection: normal inspection of the breasts and normal inspection of the axillae Breast/axilla palpation: normal palpation of the breasts ( tubular structure nontender 9 o'clock position right breast) Skin General skin exam: no rashes or lesions noted Assessment & Plan Assessment & Plan (1) Lump of right breast: Code(s): N63.10 - Unspecified lump in the right breast, unspecified quadrant Category: Medical Qualifiers: Breast mass location: unspecified quadrant Qualified Code(s): N63.10 - Unspecified lump in the right breast, unspecified quadrant (2) Mass of right breast: Code(s): N63.10 - Unspecified lump in the right breast, unspecified quadrant Qualifiers: Breast mass location: unspecified quadrant Qualified Code(s): N63.10 - Unspecified lump in the right breast, unspecified quadrant Plan Discussed findings, maybe a ductal enlargement, importance of having further evaluation to rule out any abnormal pathology. Plan diagnostic bilateral mammogram, and right breast ultrasound, follow up for surgical consult if indicated. Follow up in office for test results. The patient expressed understanding and agreement with the plan of care. All of her questions and concerns were addressed to the best of my ability. This note is constructed using voice recognition software. While every effort has been made to ensure accuracy, tie in machine operator errors may have been included. Orders: Orders MM tomosynthesis diagnostic BI Today N63.10 - Unspecified lump in the right breast, unspecified quadrant, Z12.31 - Encounter for screening mammogram for malignant neoplasm of breast US breast RT limited Today N63.10 - Unspecified lump in the right breast, unspecified quadrant Coding Level of Care Code Est Pt Level 3 (42241) Diagnoses Mass of right breast, unspecified quadrant N63.10 Breast mass location: unspecified quadrant
[2025-03-12 08:37] VITALS: BP 130/74; BMI 53.9
== END 2025-03-12 09:06 | disposition home or self-care (01) ==
LOC: HO.HWS 08:11
PROVIDERS: PCP Internal Medicine; Visit Provider Advanced Practice Midwife
DX: N63.10 Unspecified lump in the right breast, unspecified quadrant (principal)
CPT/HCPCS: 99213

== ENCOUNTER → 2025-03-12 08:11 | Outpatient (BNVA) | payer OTHER, SELFPAY | PROVIDERS: PCP Internal Medicine; Visit Provider Advanced Practice Midwife | DX: N63.10 Unspecified lump in the right breast, unspecified quadrant (principal) | CPT/HCPCS: 99212 ==

== ENCOUNTER 2025-04-03 12:53 | Outpatient (REF) | payer OTHER, SELFPAY ==
--- NOTE | ~2025-04-03 | US_ITS ---
EXAMINATIONS: 1. MM DIAGNOSTIC DIGITAL BREAST TOMOSYNTHESIS, BILATERAL 2. Targeted ultrasound of the right breast CLINICAL INFORMATION: Right breast lump at 9 o'clock position. Patient has left nipple piercing that cannot be removed. COMPARISON: July 27, 2023 TECHNIQUE: Digital breast tomosynthesis is performed in both the craniocaudal and mediolateral oblique views along with computer-aided detection (CAD). Synthesized 2D images are generated from the tomosynthesis. Skin marker was placed at the location of the palpable concern in the right breast as indicated by the patient. FINDINGS: BREAST COMPOSITION: There are scattered areas of fibroglandular density (ACR BI-RADS breast composition Category b). RIGHT BREAST: No significant masses, suspicious calcifications or other abnormalities are seen. In particular, no suspicious mammographic findings in the vicinity of the skin BB marker. Targeted ultrasound of the right breast was performed and the location of the palpable concern as indicated by the patient. According to the patient, the palpable concern was at about 9 o'clock position at the edge of the areola but also sometimes moved further lateral. The survey was centered along the 9:00 axis from 1 cm to 6 cm from the nipple, which did not reveal suspicious sonographic findings. LEFT BREAST: No significant masses, suspicious calcifications or other abnormalities are seen. US/US breast RT limited mamm only IMPRESSION: RIGHT BREAST: Negative, no evidence of malignancy. Clinical follow-up is recommended. LEFT BREAST: Negative, no mammographic evidence of malignancy. ASSESSMENT: BI-RADS 1 - Negative Results were provided to the patient at time of visit by the technologist. Electronically signed by: Mika Cooley MD 04/03/2025 01:51 PM EDT
== END 2025-04-03 12:54 | disposition home or self-care (01) ==
LOC: HO.MAMMO 12:53
PROVIDERS: PCP Internal Medicine; Visit Provider Internal Medicine
DX: N63.15 Unspecified lump in the right breast, overlapping quadrants (principal)
CPT/HCPCS: 76642; 77062; 77066

== ENCOUNTER → 2025-04-03 13:00 | Outpatient (BNV) | payer OTHER, SELFPAY | PROVIDERS: PCP Internal Medicine; Visit Provider Radiology Body Imaging | DX: N63.15 Unspecified lump in the right breast, overlapping quadrants (principal) | CPT/HCPCS: 76642; 77062; 77066 ==

== ENCOUNTER 2025-04-09 15:55 | Outpatient (AMB) | payer OTHER, SELFPAY ==
[2025-04-09 16:10] VITALS: BP 122/90; PULSE 73; RESP 18; O2SAT 99; BMI 56.2
--- NOTE | 2025-04-09 16:10 | MHC.PC.OV ---
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 Required: No Accompanied by: Self / Same As Patient Allergies No Known Allergies Allergy (Verified 04/09/25 16:36) Medication List - Last Reconciled 04/09/25 by Glenna Shah MD No Known Home Meds Tobacco use date assessed: 04/09/25 Dental Screening Dental Screen Date: 04/09/25 Did you have a dental visit in the last 12 months?: Yes Did you have a dental problem in the last 6 months where you did not have access to dental care?: No Was dental information given to patient?: Patient has dentist HPI HPI Comments History of Present Illness Details The patient is a 34-year-old female presenting for a physical exam. She is morbidly obese with a BMI of 56.2. Pap smear done 2022. Previously, she was prescribed Wegovy for weight management, which was approved but led to anxiety symptoms. She experienced crying episodes while at rest, such as watching TV, which she attributes to the medication. The patient reported a significant weight reduction of about 30 pounds prior to the onset of anxiety symptoms. She mentioned difficulties in obtaining Wegovy from pharmacies, resulting in a three-week delay in treatment. [facility] Medical History Lump of right breast Family history of diabetes mellitus Surgical History History of D&C Family History Father Pulmonary embolism Mother Thyroid disease Gastroenteritis Bleeding hemorrhoids Other Family history of diabetes mellitus Social History Household Members: Family and Children Housing: House Alcohol intake: current Alcohol intake frequency: holidays/special occasions only Alcohol type: beer Patient Tobacco Use Status: Never used Tobacco e-Cigarette/Vaping Use: Never Used Second Hand Smoke Exposure: No service: No Current occupational status: employed Current occupation: [employer] Current occupational exposures/hazards: No Cognitive needs: No Hearing needs: No Vision needs: No Female Reproductive History Menstrual Age of Menarche: 10 Questionnaire PHQ-9 Over the last 2 weeks, how often have you been bothered by any of the following problems? 1. Little interest or pleasure in doing things: not at all 2. Feeling down, depressed, or hopeless: not at all 3. Trouble falling or staying asleep, or sleeping too much: several days 4. Feeling tired or having little energy: several days 5. Poor appetite or overeating: several days 6. Feeling bad about yourself - or that you are a failure or have let yourself or your family down: not at all 7. Trouble concentrating on things, such as reading the newspaper or watching television: not at all 8. Moving or speaking so slowly that other people could have noticed. Or the opposite - being so fidgety or restless that you have been moving around a lot more than usual: not at all 9. Thoughts that you would be better off or of hurting yourself in some way: not at all Total score: 3 Depression Screening Interpretation: Negative Depression Screening Done: Yes 69048 - PHQ-9 Billing: Yes Source: Developed by Drs. Ryan Fermin, Jeanette Albert, Bacilio Alva and colleagues, with an educational jeremías from [employer]. Thrive Questionnaire Date Thrive assessed: 04/09/25 I am a: Patient What is your living situation today?: I have a steady place to live Within the past 12 months, did the food you bought not last and you didn't have the money to get more?: Never true Within the past 12 months, did you worry whether your food would run out before you got money to buy more?: Never true Do you have trouble paying for medicines?: No Do you have trouble getting transportation to medical appointments?: No Do you have trouble paying your heating and electricity bill?: I choose not to answer this question Do you have trouble taking care of your child, family member or friend?: No Do you have trouble with day-to-day activities such as bathing, preparing meals, shopping, managing finances, etc.?: No Are you currently unemployed and looking for a job?: No Are you interested in more education?: Yes Please select the resources that you would like help with: None Currently or been in a relationship where the following occur: I choose not to answer THRIVE Score: 0 AUDIT C Alcohol Use Questionnaire (AUDIT-C) 1. How often do you have a drink containing alcohol?: Never Total Score: 0 Score Reviewed/Action Taken: No LEIGHTON-7 AMB Questionnaire LEIGHTON-7 Date LEIGHTON - 7 assessed: 04/09/25 Feeling nervous, anxious, or on edge: 1 = Several days Not being able to stop or control worryin = Not at all Worrying too much about different things: 0 = Not at all Trouble relaxin = Several days Being so restless that it is hard to sit still: 0 = Not at all Becoming easily annoyed or irritable: 1 = Several days Feeling afraid as if something awful might happen: 0 = Not at all Total LEIGHTON-7 score (0-4 normal; 5-9 mild; 10-14 moderate; 15-21 severe): 3 Source: Developed by Drs. Ryan Fermin, Jeanette Albert, Bacilio Alva and colleagues, with an educational jeremías from [employer]. LEIGHTON-7 Assessment Billing LEIGHTON-7 Assessment Tool: LEIGHTON-7 Assessment 91772 Review of Systems Const All systems reviewed & are unremarkable except as noted in HPI and below Card Denies chest pain at rest, Denies chest pain with activity, Denies edema, Denies irregular heart rhythm, Denies claudication, Denies dyspnea, Denies dyspnea on exertion, Denies orthopnea, Denies paroxysmal nocturnal dyspnea and Denies slow heart rate Resp Denies cough, Denies dyspnea and Denies dyspnea on exertion GI Denies abdominal pain, Denies change in bowel habits, Denies excessive flatus, Denies nausea and Denies vomiting Denies urinary incontinence, Denies urinary hesitancy and Denies urinary urgency Musc Denies atrophy, Denies deformity and Denies limited range of motion Physical exam (Primary Care) Vital Signs: Last Vital Signs Pulse 73 04/09/25 16:10 Resp 18 04/09/25 16:10 BP 122/90 H 04/09/25 16:10 Pulse Ox 99 04/09/25 16:10 Oxygen Delivery Method Room Air 04/09/25 16:10 BMI result Body Mass Index 56.2 Tobacco/Smoking Status: Tobacco use Status Tobacco use date assessed 04/09/25 04/09/25 16:22 Patient Tobacco Use Status Never used Tobacco 04/09/25 16:22 e-Cigarette/Vaping Use Never Used 04/09/25 16:22 PHQ-9: PHQ-9 Score PHQ-9: Total score 3 04/09/25 16:22 Depression Screening Interpretation: Negative Thrive Assessment: Date of Thrive Assessment Date Thrive assessed 04/09/25 04/09/25 16:22 Currently or been in a relationship where the following occur: I choose not to answer HENMT Head: Yes normal to inspection, Yes normocephalic and Yes atraumatic Ears: external ears normal Eyes General: appearance normal, both eyes and all related structures Eyelids: Yes eyelids normal Conjunctivae: conjunctivae normal Neck Neck: Yes normal visual inspection and Yes supple Resp Effort & Inspection: normal respiratory effort Auscultation: clear to auscultation bilaterally Cardio Jugular venous distension: no JVD Rate: regular rate Rhythm: regular rhythm Heart sounds: S1 normal heart sound present and S2 normal heart sound present GI Inspection: Yes normal to inspection Palpation (GI): Soft to palpation and nontender Auscultation: normal bowel sounds Skin General skin exam: no rashes or lesions noted Neuro General: no focal motor deficits Extrem General: Yes full ROM Psych Appearance: grossly normal Coding Level of Care Code Est Pt Level 3 (08851) Est Pt Prev Care 18-39y([id number]) Diagnoses Physical exam Z00.00 Morbid obesity with BMI of 50.0-59.9, adult E66.01; Z68.43 Additional Codes PHQ-9 - 97273 - PHQ-9 Billing: Yes ([id number]) LEIGHTON-7 Assessment Billing - LEIGHTON-7 Assessment Tool: LEIGHTON-7 Assessment 91780 ([id number]) Time Spent (min) 32 Assessment & Plan Assessment & Plan (1) Physical exam: Code(s): Z00.00 - Encounter for general adult medical examination without abnormal findings Category: Medical (2) Morbid obesity with BMI of 50.0-59.9, adult: Code(s): E66.01 - Morbid (severe) obesity due to excess calories; Z68.43 - Body mass index [BMI] 50.0-59.9, adult Category: Medical Plan The patient was advised to continue with her weight management plan, considering the previous success with Wegovy, despite the anxiety symptoms experienced. The importance of monitoring for any further psychological side effects was emphasized, and alternative weight management strategies were discussed in case the anxiety persists. A follow-up appointment was recommended to reassess her response to the medication and to evaluate the need for any adjustments in her treatment plan. Patient was informed and verbally consented to the use of an ambient scribe for clinic note documentation during this visit. Orders: Orders Comprehensive Grant. Panel Fast Today Z00.00 - Encounter for general adult medical examination without abnormal findings Vitamin D 25-OH Total Today E55.9 - Vitamin D deficiency, unspecified Lipid Panel Today E78.5 - Hyperlipidemia, unspecified Thyroid Stimulating Hormone Today E66.01 - Morbid (severe) obesity due to excess calories, Z68.43 - Body mass index [BMI] 50.0-59.9, adult Referrals Medical Weight Management Referral E66.01 - Morbid (severe) obesity due to excess calories, Z68.43 - Body mass index [BMI] 50.0-59.9, adult
== END 2025-04-09 16:47 | disposition home or self-care (01) ==
LOC: HO.HMCH 15:56
PROVIDERS: PCP Internal Medicine; Visit Provider Internal Medicine
DX: Z00.00 Encounter for general adult medical examination without abnormal findings (principal); E66.01 Morbid (severe) obesity due to excess calories; Z68.43 Body mass index [BMI] 50.0-59.9, adult

== ENCOUNTER → 2025-04-09 15:55 | Outpatient (BNVA) | payer OTHER, SELFPAY | PROVIDERS: PCP Internal Medicine; Visit Provider Internal Medicine | DX: Z00.00 Encounter for general adult medical examination without abnormal findings (principal); E66.01 Morbid (severe) obesity due to excess calories; E55.9 Vitamin D deficiency, unspecified; E78.5 Hyperlipidemia, unspecified; Z68.43 Body mass index [BMI] 50.0-59.9, adult | CPT/HCPCS: 96127; 99212; 99395 ==

== ENCOUNTER 2025-05-28 19:55 | Emergency (ER) | payer OTHER, SELFPAY ==
[2025-05-28 20:03] VITALS: BP 145/62; PULSE 80; RESP 20; TEMP 36.6; O2SAT 99; BMI 54.9
[2025-05-28 20:24] LABS: MANUAL DIFF FLAG NO
[2025-05-28 20:36] LABS: Hematocrit 37.1 % (37.0-47.0); Hemoglobin 12.1 g/dl (12.0-16.0); Imm Gran Abs Auto 0.03 X10*3/uL (0.00-0.03); Imm Gran Pct Auto 0.3 % (0.0-0.4); Lymphocytes Absolute Auto 3.3 X10*3/uL (1.2-4.9); Mean Corpuscular HGB Conc 32.6 g/dl (31.0-35.0); Mean Corpuscular Hemoglobin 24.2 pg (27.0-33.0); Mean Corpuscular Volume 74.3 fL (80.0-98.0); NRBC Abs Auto 0.000 X10*3/uL (0.0-0.012); NRBC Pct Auto 0.0 /100WBC (0.0-0.2); Platelet Count 470 X10*3/uL (160-400); Red Blood Count 4.99 X10*6/uL (4.20-5.50); White Blood Count 11.4 X10*3/uL (4.8-10.8)
[2025-05-28 20:39] LABS: Alanine Aminotransferase 25 U/L (0-31); Albumin Level 4.4 g/dL (3.5-5.0); Alkaline Phosphatase 89 U/L (39-117); Anion Gap 13 (12-20); Aspartate Amino Transferase 24 U/L (5-31); Blood Urea Nitrogen 11 mg/dL (9-16); Calcium 9.9 mg/dL (8.4-10.2); Carbon Dioxide 27 mmol/L (22-29); Chloride 104 mmol/L (96-108); Creatinine Clr Calc Pharmacy 170.7; Estimated Glomerular Filt Rate > 60; Potassium 3.9 mmol/L (3.3-5.1); Sodium 140 mmol/L (135-145); Total Protein 7.5 g/dL (6.5-8.0)
[2025-05-28 22:35] VITALS: BP 133/97; PULSE 80; RESP 18; O2SAT 99
--- NOTE | 2025-05-28 23:07 | ECG_ITS ---
Test Reason : PAIN Blood Pressure : */* mmHG Vent. Rate : 77 BPM Atrial Rate : 77 BPM P-R Int : 138 ms QRS Dur : 88 ms QT Int : 406 ms P-R-T Axes : 6 -17 2 degrees QTcB Int : 459 ms Normal sinus rhythm with sinus arrhythmia Minimal voltage criteria for LVH, may be normal variant ( R in aVL ) Cannot rule out Anterior infarct (cited on or before 06-Dec-2023) Abnormal ECG When compared with ECG of 06-Dec-2023 18:33, No significant change was found Referred By: Ankur Pratt Electronically Signed By: KEVIN MORILLO
[2025-05-28 23:44] LABS: D Dimer High Sensitivity < 150 NG/ML
[2025-05-28 23:54] LABS: Troponin-I High Sensitivity < 2.7 ng/L (<3.5-17.0)
--- NOTE | 2025-05-29 00:17 | ED_ITS ---
HPI - General Adult General Chief complaint: General Medical Stated complaint: high bp,headache, body tingling Time Seen by Provider: 05/28/25 21:55 Source: patient, RN notes reviewed and old records reviewed Mode of arrival: ambulatory Limitations: no limitations History of Present Illness ED Provider: Santa MCDOWELL narrative: 35-year-old female with past medical history significant for morbid obesity, hemorrhoids for evaluation of numbness and tingling throughout her body. Her symptoms started last weekend, 7 days ago. She reports that she occasionally has tingling in her right leg which then seemed to migrate to her right arm and she also occasionally has symptoms in the left side of her body. Knee symptoms are random, not related to any activity. She has no weakness, slurred speech, blurry vision, lightheadedness, headaches. She reports increased GERD symptoms over last few days Denies any sharp chest pain, denies any shortness of breath pain No abdominal pain, nausea vomiting pain She took her blood pressure at home and it was ?145/103. She denies any history of high blood pressure pain She reports a family history of DVT and PE but she has no personal history of this. She has not had any recent travel, she is not on contraception Related Data Home Medications ?Medication ?Instructions ?Recorded ?Confirmed No Known Home Meds 04/09/25 04/09/25 Allergies Allergy/AdvReac Type Severity Reaction Status Date / Time No Known Allergies Allergy Verified 05/28/25 20:05 Review of Systems 2 Constitutional: Constitutional: Denies body ache(s), Denies chills, Denies fever(s) and Denies headache(s) Eyes: Eyes: Denies blurry vision ENT: Denies vertigo, Denies dizziness and Denies headache(s) Cardiovascular: Cardiovascular: Denies chest pain and Denies dyspnea on exertion Respiratory: Respiratory: Denies cough and Denies dyspnea on exertion Gastrointestinal: Gastrointestinal: Denies abdominal pain and Denies nausea Integumentary/Breasts: Skin/Breast: Denies rash Neurologic: Denies vertigo, Denies dizziness and Denies headache(s) Psychiatric: Psychiatric: Reports anxiety PMFSH Past Medical History Medical History Lump of right breast Family history of diabetes mellitus Surgical History History of D&C Family History Family History Father Pulmonary embolism Mother Thyroid disease Gastroenteritis Bleeding hemorrhoids Other Family history of diabetes mellitus Social History Social History Household Members: Family and Children Housing: House Alcohol intake: current Alcohol intake frequency: holidays/special occasions only Alcohol type: beer Patient Tobacco Use Status: Never used Tobacco e-Cigarette/Vaping Use: Never Used Second Hand Smoke Exposure: No Advance Directives: No Advance Directives Information Provided: No service: No Current occupational status: employed Current occupation: [employer] Current occupational exposures/hazards: No Cognitive needs: No Hearing needs: No Vision needs: No Physical Exam ED Vital Signs: Vital Signs - 24 hr 05/28/25 20:03 05/28/25 22:35 05/29/25 00:27 Temperature 98 F 99.0 F Pulse Rate 80 80 74 Respiratory Rate 20 18 16 Blood Pressure 145/62 H 133/97 H 117/71 Pulse Oximetry 99 99 97 Oxygen Delivery Method Room Air Room Air Room Air BMI result Body Mass Index 54.9 Const General: healthy appearing, comfortable, no acute distress, alert and awake Nutritional Appearance: well nourished Orientation/consciousness: patient oriented x3 HENMT Head: Yes normocephalic and Yes atraumatic Eyes Eyelids: Yes eyelids normal Conjunctivae: conjunctivae normal Sclerae: sclerae normal Corneas: corneas normal Pupils: Equal, round and reactive pupils present EOM: EOMs intact bilaterally Neck Neck: Yes full ROM Resp Effort & Inspection: normal respiratory effort, able to speak in complete sentences, no audible wheezes and not labored Auscultation: clear to auscultation bilaterally Cardio Rate: regular rate Rhythm: regular rhythm GI Inspection: No distended Palpation (GI): Soft to palpation, not firm, nontender, no guarding and not rigid Skin General skin exam: elasticity normal Neuro General: patient oriented x3 Cranial nerves: Yes CN's II-XII intact bilaterally, Yes Equal, round and reactive pupils present and Yes Bilaterally intact EOM present Cognition (Neuro): normal cognition Extrem Other: Moving all extremities well without any obvious deformities. No lower extremity edema, no calf tenderness. Medical Decision Making Medical Decision Making [facility] Narrative: 35-year-old female presents for evaluation of numbness and tingling to her entire body. She has a NIH stroke score of 0, no weakness, slurred speech, blurry vision to suggest a CVA. I think your symptoms are most likely related to anxiety. Given her increased GERD and chest discomfort I did order reassuring. The patient's symptoms again unlikely related to anxiety, I feel that she can be safely discharged to follow up with the primary doctor. Her blood pressure with a slightly elevated but not enough to starts emergent antihypertensive medication. She will keep a log of her medications and follow up with the PCP Differential Diagnosis Differential Diagnoses: The differential diagnosis associated with the presentation includes High blood pressure Anxiety PE Hyperthyroidism DVT ACS less likely Admission/Observation Consideration of admission/observation: Escalation of care including admission/observation considered Patient ruled out for ACS and ultimately did not require admission Lab Data [facility] Lab Attestation statement: I reviewed the patient's lab results. Mild leukocytosis to 11.4 1000, no significant anemia. Platelet count is slightly elevated to [id number]. No significant electrolyte abnormalities warranting intervention. Troponin within normal limits, D-dimer is negative. 05/28/25 20:19 05/28/25 20:19 Labs: Lab Results 05/28/25 05/28/25 Range/Units 20:19 23:24 WBC 11.4 H (4.8-10.8) X10*3/uL RBC 4.99 (4.20-5.50) X10*6/uL Hgb 12.1 (12.0-16.0) g/dl Hct 37.1 (37.0-47.0) % MCV 74.3 L (80.0-98.0) fL MCH 24.2 L (27.0-33.0) pg MCHC 32.6 (31.0-35.0) g/dl RDW 15.9 (11.0-16.0) % Plt Count 470 H (160-400) X10*3/uL MPV 9.5 (9.4-12.3) fL Immature Gran % (Auto) 0.3 (0.0-0.4) % Neut % (Auto) 62.8 (45-73) % Lymph % (Auto) 28.8 (20-40) % [place] % (Auto) 5.6 (2-11) % Eos % (Auto) 2.0 (0-4) % Baso % (Auto) 0.5 (0-2) % Lymph # (Auto) 3.3 (1.2-4.9) X10*3/uL [place] # (Auto) 0.6 (0.1-1.2) X10*3/uL Eos # (Auto) 0.2 (0.0-0.4) X10*3/uL Baso # (Auto) 0.1 (0.0-0.2) X10*3/uL Abs Immat Gran (auto) 0.03 (0.00-0.03) X10*3/uL Absolute Neuts (auto) 7.2 (2.0-8.3) x10*3/uL Absolute Nucleated RBC 0.000 (0.0-0.012) X10*3/uL Nucleated RBC % (auto) 0.0 (0.0-0.2) /100WBC D-Dimer High Sensitivty < 150 NG/ML Sodium 140 (135-145) mmol/L Potassium 3.9 (3.3-5.1) mmol/L Chloride 104 (96-108) mmol/L Carbon Dioxide 27 (22-29) mmol/L Anion Gap 13 (12-20) BUN 11 (9-16) mg/dL Creatinine 0.67 (0.5-1.4) mg/dL Estim Creat Clear Calc 170.7 Estimated GFR > 60 Random Glucose 108 (60-115) mg/dL Calcium 9.9 D (8.4-10.2) mg/dL Total Bilirubin 0.3 (0.0-1.0) mg/dL AST 24 (5-31) U/L ALT 25 (0-31) U/L Alkaline Phosphatase 89 (39-117) U/L Troponin I High Sens < 2.7 (<3.5-17.0) ng/L Total Protein 7.5 (6.5-8.0) g/dL Albumin 4.4 (3.5-5.0) g/dL Beta HCG, Quant < 2 mIU/mL Independent Interpretation I performed an independent interpretation of an: EKG Interpretation: Normal sinus rhythm with a rate of [address] segment elevations or depressions. Poor quality EKG Discharge Plan Discharge Clinical Impression: High blood pressure, Paresthesias Patient Disposition: Home, Self-Care Instructions: Hypertension (ED) Additional Instructions: Your workup in the ER today was reassuring. This includes your blood work, blood glucose was 108, you were ruled out for blood clots in her lungs, you do not have a heart attack. Follow up with your primary doctor, return for new or worsening symptoms. I do not think you need to be started on blood pressure medication currently, but keep a log of your blood pressures and bring this to your doctor when you follow up Prescriptions: No Action No Known Home Meds Print Language: Danish
[2025-05-29 00:27] VITALS: BP 117/71; PULSE 74; RESP 16; TEMP 37.2; O2SAT 97
[2025-05-29 00:47] VITALS: BP 117/71; PULSE 74; RESP 16; TEMP 37.2; O2SAT 97
== END 2025-05-29 00:47 | disposition home or self-care (01) ==
PROVIDERS: Physician Assistant; Emergency Provider Emergency Medicine Emergency Medical Services; PCP Internal Medicine
DX: R20.2 Paresthesia of skin (principal); I10 Essential (primary) hypertension; E66.01 Morbid (severe) obesity due to excess calories; Z68.43 Body mass index [BMI] 50.0-59.9, adult; Z79.899 Other long term (current) drug therapy
CPT/HCPCS: 36415; 80053; 84484; 84702; 85025; 85379; 93005; 99283; 99284

== ENCOUNTER → 2025-05-28 23:07 | Outpatient (BNV) | payer OTHER, SELFPAY | PROVIDERS: Emergency Provider Emergency Medicine Emergency Medical Services; PCP Internal Medicine; Visit Provider Internal Medicine | DX: I49.9 Cardiac arrhythmia, unspecified (principal) | CPT/HCPCS: 93010 ==

== ENCOUNTER 2025-06-04 13:58 | Emergency (ER) | payer OTHER, SELFPAY ==
--- NOTE | ~2025-06-04 | XR_ITS ---
EXAMINATION: XR CHEST CLINICAL INFORMATION: chest pain COMPARISON: None available. TECHNIQUE: 2 views of the chest were obtained. FINDINGS: The cardiomediastinal silhouette is within normal limits. The lungs are well expanded. There is no focal consolidation, edema, or effusion. No pneumothorax. No acute osseous abnormality. XR/XR chest 2V IMPRESSION: No radiographic evidence of acute cardiopulmonary findings. Electronically signed by: Casey Ruff MD 06/04/2025 02:49 PM EDT
--- NOTE | 2025-06-04 14:00 | ECG_ITS ---
Test Reason : cp Blood Pressure : */* mmHG Vent. Rate : 93 BPM Atrial Rate : 93 BPM P-R Int : 164 ms QRS Dur : 90 ms QT Int : 378 ms P-R-T Axes : 20 -23 6 degrees QTcB Int : 469 ms Normal sinus rhythm Cannot rule out Anterior infarct (cited on or before 06-Dec-2023) Abnormal ECG When compared with ECG of 28-May-2025 23:44, No significant change was found Referred By: Jie Thomason Electronically Signed By: EVELYN BAIRES MD
[2025-06-04 14:07] VITALS: BP 146/87; PULSE 89; RESP 20; TEMP 36.6; O2SAT 100; BMI 55.2
--- NOTE | 2025-06-04 14:07 | ED.GENADULT ---
HPI - General Adult General Chief complaint: Chest Pain Stated complaint: Chest pain, SOB, pain both arms Time Seen by Provider: 06/04/25 17:02 Source: patient, RN notes reviewed and old records reviewed Mode of arrival: ambulatory Limitations: no limitations History of Present Illness ED Provider: Santa MCDOWELL narrative: 35-year-old female presents for evaluation of heartburn. She reports a burning epigastric pain rising your chest of the last few days. She reports she has a history of mild heartburn but this feels more severe. She took some Tums with minimal relief. Denies any shortness of breath. She reports that she tries to avoid spicy and greasy foods. Denies any previous endoscopies or GI evaluations. Denies any palpitations, lightheadedness. Her pain is a 02/03 Related Data Home Medications ?Medication ?Instructions ?Recorded ?Confirmed No Known Home Meds 04/09/25 04/09/25 Allergies Allergy/AdvReac Type Severity Reaction Status Date / Time No Known Allergies Allergy Verified 06/04/25 14:11 Review of Systems Constitutional: Constitutional: Denies body ache(s), Denies chills and Denies headache(s) Eyes: Eyes: Denies blurry vision ENT: Denies vertigo, Denies dizziness, Denies dry mouth and Denies headache(s) Cardiovascular: Cardiovascular: Denies chest pain and Denies dyspnea on exertion Respiratory: Respiratory: Denies cough and Denies dyspnea on exertion Gastrointestinal: Gastrointestinal: Reports abdominal pain, Reports nausea and Denies vomiting Musculoskeletal: Musculoskeletal: Denies back pain Integumentary/Breasts: Skin/Breast: Denies rash Neurologic: Denies vertigo, Denies dizziness and Denies headache(s) [facility] Past Medical History Medical History Lump of right breast Family history of diabetes mellitus Surgical History History of D&C Family History Family History Father Pulmonary embolism Mother Thyroid disease Gastroenteritis Bleeding hemorrhoids Other Family history of diabetes mellitus Social History Social History Household Members: Family and Children Housing: House Unable to assess alcohol history related to: Unknown Alcohol intake: current Alcohol intake frequency: holidays/special occasions only Alcohol type: beer Patient Tobacco Use Status: Never used Tobacco e-Cigarette/Vaping Use: Never Used Second Hand Smoke Exposure: No Advance Directives: No Advance Directives Information Provided: Yes Do you have a plan to hurt others: No Plan service: No Current occupational status: employed Current occupation: [employer] Current occupational exposures/hazards: No Cognitive needs: No Hearing needs: No Vision needs: No Physical Exam ED Vital Signs: Vital Signs - 24 hr 06/04/25 14:07 06/04/25 16:28 06/04/25 17:43 Temperature 97.8 F 98.6 F Pulse Rate 89 88 79 Respiratory Rate 20 18 Blood Pressure 146/87 H 128/84 Pulse Oximetry 100 100 Oxygen Delivery Method Room Air Room Air BMI result Body Mass Index 55.2 Const General: healthy appearing, comfortable, no acute distress, alert and awake Nutritional Appearance: well nourished Orientation/consciousness: patient oriented x3 HENMT Head: Yes normocephalic and Yes atraumatic Eyes Eyelids: Yes eyelids normal Conjunctivae: conjunctivae normal Sclerae: sclerae normal Corneas: corneas normal Pupils: Equal, round and reactive pupils present EOM: EOMs intact bilaterally Neck Neck: Yes full ROM Resp Effort & Inspection: normal respiratory effort, able to speak in complete sentences and not labored Cardio Rate: regular rate Rhythm: regular rhythm GI Inspection: No distended Palpation (GI): Soft to palpation, not firm, nontender, no guarding and not rigid Skin General skin exam: elasticity normal Neuro General: patient oriented x3 Cranial nerves: Yes Equal, round and reactive pupils present and Yes Bilaterally intact EOM present Cognition (Neuro): normal cognition Extrem Other: Moving all extremities well without any obvious deformities Course Course Course Narrative: This is a rapid medical exam performed by Moshe Thomason NP: Additional HPI, ROS, PE not included below will be deferred to primary provider. Patient is a 35y/o F presenting to the ED with complaint of chest pain, bubbling sensation in her chest like after drinking a seltzer since 05/28. 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 Plan: EKG, labs Medications Administered Discontinued Medications Generic Name Dose Route Start Last Admin Trade Name Freq PRN Reason Stop Dose Admin Al Hydroxide/Mg Hydroxide 30 ml 06/04/25 17:32 06/04/25 17:45 Magnesium Hydrox/Alum Hydrox 30 Ml Oral.Susp PO 06/04/25 17:33 30 ml ONCE ONE Administration Lidocaine HCl 15 ml 06/04/25 17:32 06/04/25 17:45 Lidocaine Hcl Viscous 2 % 15 Ml Solution MUCOUS MEM 06/04/25 17:33 15 ml ONCE ONE Administration Ondansetron HCl 4 mg 06/04/25 17:32 06/04/25 17:45 Ondansetron Odt 4 Mg Tab.Rapdis TRANSLINGU 06/04/25 17:33 4 mg ONCE ONE Administration Medical Decision Making Medical Decision Making [facility] Narrative: 35-year-old female presents for evaluation of epigastric burning and the pain radiating into her chest. She has a history of heartburn but reports this feels worse. Your symptoms were improved slightly with Tums. She would have a cardiac workup given the chest pain, troponin is negative with a nonischemic EKG, she rules out for ACS. Her vital signs are stable, no risk factors for PE. She is have a reassuring physical exam, no significant abdominal tenderness, no right upper quadrant tenderness, LFTs within normal limits. Her history exam is most consistent with GERD, we will treat with a GI cocktail. Differential Diagnosis Differential Diagnoses: The differential diagnosis associated with the presentation includes ACS Chest wall pain GERD Biliary colic Peptic ulcer disease Lab Data [facility] Lab Attestation statement: I reviewed the patient's lab results. Mild leukocytosis to 12.0, no significant anemia. No significant left shift. Chemistries are all normal limits including a negative troponin. 06/04/25 14:29 06/04/25 14:29 Labs: Lab Results 06/04/25 Range/Units 14:29 WBC 12.0 H (4.8-10.8) X10*3/uL RBC 4.95 (4.20-5.50) X10*6/uL Hgb 11.9 L (12.0-16.0) g/dl Hct 37.8 (37.0-47.0) % MCV 76.4 L (80.0-98.0) fL MCH 24.0 L (27.0-33.0) pg MCHC 31.5 (31.0-35.0) g/dl RDW 15.6 (11.0-16.0) % Plt Count 461 H (160-400) X10*3/uL MPV 9.6 (9.4-12.3) fL Immature Gran % (Auto) 0.4 (0.0-0.4) % Neut % (Auto) 64.6 (45-73) % Lymph % (Auto) 27.3 (20-40) % [place] % (Auto) 5.2 (2-11) % Eos % (Auto) 1.8 (0-4) % Baso % (Auto) 0.7 (0-2) % Lymph # (Auto) 3.3 (1.2-4.9) X10*3/uL [place] # (Auto) 0.6 (0.1-1.2) X10*3/uL Eos # (Auto) 0.2 (0.0-0.4) X10*3/uL Baso # (Auto) 0.1 (0.0-0.2) X10*3/uL Abs Immat Gran (auto) 0.05 H (0.00-0.03) X10*3/uL Absolute Neuts (auto) 7.8 (2.0-8.3) x10*3/uL Absolute Nucleated RBC 0.000 (0.0-0.012) X10*3/uL Nucleated RBC % (auto) 0.0 (0.0-0.2) /100WBC PT 11.8 (10.9-12.4) SEC INR 1.0 (0.9-1.1) Sodium 140 (135-145) mmol/L Potassium 4.3 (3.3-5.1) mmol/L Chloride 105 (96-108) mmol/L Carbon Dioxide 24 (22-29) mmol/L Anion Gap 15 (12-20) BUN 13 (9-16) mg/dL Creatinine 0.65 (0.5-1.4) mg/dL Estim Creat Clear Calc 176.5 Estimated GFR > 60 Random Glucose 107 (60-115) mg/dL Calcium 9.4 (8.4-10.2) mg/dL Total Bilirubin 0.2 (0.0-1.0) mg/dL AST 21 (5-31) U/L ALT 25 (0-31) U/L Alkaline Phosphatase 89 (39-117) U/L Troponin I High Sens < 2.7 (<3.5-17.0) ng/L Total Protein 7.6 (6.5-8.0) g/dL Albumin 4.3 (3.5-5.0) g/dL Beta HCG, Quant < 2 mIU/mL Independent Interpretation I performed an independent interpretation of an: EKG Interpretation: Normal sinus rhythm with a rate of [address] changes Radiology Impression Discussion of test interpretation with radiology: I have reviewed the radiologist's reading. Radiologist Impression: Normal sinus rhythm with a rate of [address] changes FINDINGS: The cardiomediastinal silhouette is within normal limits. The lungs are well expanded. There is no focal consolidation, edema, or effusion. No pneumothorax. No acute osseous abnormality. XR/XR chest 2V IMPRESSION: No radiographic evidence of acute cardiopulmonary findings. Electronically signed by: Casey Ruff MD 06/04/2025 02:49 PM EDT RP Discharge Plan Discharge Clinical Impression: Chest pain due to GERD Patient Disposition: Home, Self-Care Instructions: GERD (Gastroesophageal Reflux Disease) (ED) Additional Instructions: Your symptoms seem most consistent with GERD or heartburn. I recommend avoiding greasy, spicy and fatty foods. I recommend taking omeprazole or Prilosec 20 mg once daily for the next 2 weeks. You may also use Tums as needed for pain. Follow up with GI at the number provided Return for new or worsening symptoms Prescriptions: No Action No Known Home Meds Referrals: [facility] [Provider Group, Gastroenterology] Referral Note: GERD Print Language: Marshallese
[2025-06-04 14:46] LABS: MANUAL DIFF FLAG NO
[2025-06-04 14:47] LABS: Hematocrit 37.8 % (37.0-47.0); Hemoglobin 11.9 g/dl (12.0-16.0); Imm Gran Abs Auto 0.05 X10*3/uL (0.00-0.03); Imm Gran Pct Auto 0.4 % (0.0-0.4); Lymphocytes Absolute Auto 3.3 X10*3/uL (1.2-4.9); Mean Corpuscular HGB Conc 31.5 g/dl (31.0-35.0); Mean Corpuscular Hemoglobin 24.0 pg (27.0-33.0); Mean Corpuscular Volume 76.4 fL (80.0-98.0); NRBC Abs Auto 0.000 X10*3/uL (0.0-0.012); NRBC Pct Auto 0.0 /100WBC (0.0-0.2); Platelet Count 461 X10*3/uL (160-400); Red Blood Count 4.95 X10*6/uL (4.20-5.50); White Blood Count 12.0 X10*3/uL (4.8-10.8)
[2025-06-04 14:54] LABS: INTERNATIONAL NORM RATIO 1.0 (0.9-1.1); Prothrombin Time 11.8 SEC (10.9-12.4)
[2025-06-04 16:28] VITALS: BP 128/84; PULSE 88; RESP 18; TEMP 37; O2SAT 100
[2025-06-04 16:42] LABS: Alanine Aminotransferase 25 U/L (0-31); Albumin Level 4.3 g/dL (3.5-5.0); Alkaline Phosphatase 89 U/L (39-117); Anion Gap 15 (12-20); Aspartate Amino Transferase 21 U/L (5-31); Blood Urea Nitrogen 13 mg/dL (9-16); Calcium 9.4 mg/dL (8.4-10.2); Carbon Dioxide 24 mmol/L (22-29); Chloride 105 mmol/L (96-108); Creatinine Clr Calc Pharmacy 176.5; Estimated Glomerular Filt Rate > 60; Potassium 4.3 mmol/L (3.3-5.1); Sodium 140 mmol/L (135-145); Total Protein 7.6 g/dL (6.5-8.0)
[2025-06-04 16:47] LABS: Troponin-I High Sensitivity < 2.7 ng/L (<3.5-17.0)
[2025-06-04 17:43] VITALS: PULSE 79
[2025-06-04] MEDS: Lidocaine HCl Viscous 2 % 15 ML SOLUTION MUCOUS MEM (17:45)
[2025-06-04] MEDS: Magnesium Hydrox/Alum Hydrox 30 ML ORAL.SUSP PO (17:45)
== END 2025-06-04 18:44 | disposition home or self-care (01) ==
PROVIDERS: Registered Nurse Emergency; Emergency Provider Emergency Medicine; PCP Internal Medicine
DX: R07.9 Chest pain, unspecified (principal); K21.9 Gastro-esophageal reflux disease without esophagitis; R06.02 Shortness of breath; M79.601 Pain in right arm; M79.602 Pain in left arm; R94.31 Abnormal electrocardiogram [ECG] [EKG]
CPT/HCPCS: 36415; 71046; 80053; 84484; 84702; 85025; 85610; 93005; 99283; 99285

== ENCOUNTER → 2025-06-04 14:00 | Outpatient (BNV) | payer OTHER, SELFPAY | PROVIDERS: Emergency Provider Emergency Medicine; PCP Internal Medicine; Visit Provider Internal Medicine Cardiovascular Disease | DX: R94.31 Abnormal electrocardiogram [ECG] [EKG] (principal); R07.9 Chest pain, unspecified | CPT/HCPCS: 93010 ==

== ENCOUNTER → 2025-06-04 14:11 | Outpatient (BNV) | payer OTHER, SELFPAY | PROVIDERS: PCP Internal Medicine; Visit Provider Radiology Diagnostic Ultrasound | DX: R07.9 Chest pain, unspecified (principal) | CPT/HCPCS: 71046 ==

== ENCOUNTER 2025-08-21 16:19 | Outpatient (AMB) | payer OTHER, SELFPAY ==
--- NOTE | 2025-08-21 16:30 | A.OFFPC_ITS ---
Vital Signs 08/21/25 16:32 Height 5 ft 5 in Weight 347 lb 2 oz BMI 57.8 BP 130/80 Blood Pressure Location Lt brachial Position Sitting Pulse 80 Pulse Source Pulse Oximeter Temp 96.9 F Temp Source Temporal Artery Scan Pulse Oximetry (%) 99 Oxygen Delivery Method Room Air Intake Visit Reasons: Headache Intake Note: Patient is here to follow up on Headache. Electronic Warfare Specialist Required: No Instructional Support Technician: Not Required per policy Accompanied by: Self / Same As Patient Allergies No Known Allergies Allergy (Verified 08/21/25 16:31) Medication List - Last Reconciled 08/21/25 by Keshav Hernandez MD No Known Home Meds Tobacco use date assessed: 08/21/25 Dental Screening Dental Screen Date: 04/09/25 HPI HPI Comments History of Present Illness Details The patient is a 35 year old female with PMH of Obesity, migraine, paresthesia presenting with pressure around her left eye. She has a history of migraine headaches since she was 11 years old. Her current complaint is a sensation of pressure around her left eye, which she rates as 2/10 and describes as feeling like something is there rather than a true headache. She also notes an intermittent internal itching sensation in her scalp on the same side. The pressure is alleviated by moving her eyelids or applying cold to the area and is more noticeable when she is not distracted. She reports improvement of her symptoms whe she is distracted and busy with her kids. She does not report pain or vision impairment and notes her vision is better in the left eye. She had a head CT scan in 2023 which was nagative for any intracranial findings. This presentation is distinct from a recent bilateral posterior headache she experienced on Sunday, which has since resolved. She took Advil for that headache and took Tylenol today for the current pressure. The patient reports significant stress as a single mother of three and experiences anxiety, which worsens at night. She states her hormones have been out of whack and she has concerns about her weight. She denies any use of drugs, smoke, or alcohol. FOR[facility]LY [facility] Medical History Lump of right breast Family history of diabetes mellitus Surgical History History of D&C Family History Father Pulmonary embolism Mother Thyroid disease Gastroenteritis Bleeding hemorrhoids Other Family history of diabetes mellitus Social History Household Members: Family and Children Housing: House Alcohol intake: current Alcohol intake frequency: holidays/special occasions only Alcohol type: beer Patient Tobacco Use Status: Never used Tobacco e-Cigarette/Vaping Use: Never Used Second Hand Smoke Exposure: No service: No Current occupational status: employed Current occupation: [employer] Current occupational exposures/hazards: No Cognitive needs: No Hearing needs: No Vision needs: No Female Reproductive History Menstrual Age of Menarche: 10 Questionnaire Thrive Questionnaire Date Thrive assessed: 04/09/25 I am a: Patient What is your living situation today?: I have a steady place to live Within the past 12 months, did the food you bought not last and you didn't have the money to get more?: Never true Within the past 12 months, did you worry whether your food would run out before you got money to buy more?: Never true Do you have trouble paying for medicines?: No Do you have trouble getting transportation to medical appointments?: No Do you have trouble paying your heating and electricity bill?: I choose not to answer this question Do you have trouble taking care of your child, family member or friend?: No Do you have trouble with day-to-day activities such as bathing, preparing meals, shopping, managing finances, etc.?: No Are you currently unemployed and looking for a job?: No Are you interested in more education?: Yes Currently or been in a relationship where the following occur: I choose not to answer THRIVE Score: 0 LEIGHTON-7 AMB Questionnaire LEIGHTON-7 Date LEIGHTON - 7 assessed: 04/09/25 Source: Developed by Drs. Ryan Fermin, Jeanette Albert, Bacilio Alva and colleagues, with an educational jeremías from [employer]. Review of Systems Const Details: As per HPI. Physical exam (Primary Care) Vital Signs: Last Vital Signs Temp 96.9 F 08/21/25 16:32 Pulse 80 08/21/25 16:32 BP 130/80 08/21/25 16:32 Pulse Ox 99 08/21/25 16:32 Oxygen Delivery Method Room Air 08/21/25 16:32 BMI result Body Mass Index 57.8 Tobacco/Smoking Status: Tobacco use Status Tobacco use date assessed 08/21/25 08/21/25 16:35 Patient Tobacco Use Status Never used Tobacco 08/21/25 16:35 e-Cigarette/Vaping Use Never Used 08/21/25 16:35 Thrive Assessment: Date of Thrive Assessment Date Thrive assessed 04/09/25 08/21/25 16:35 Currently or been in a relationship where the following occur: I choose not to answer Const Other: Pertinent findings are in BOLD GENERAL APPEARANCE NAD, activity normal for age, well developed/ well nourished, no cyanosis, pallor, or diaphoresis. EYES lids/conjunctiva normal. EARS/NOSE/THROAT Mucous membranes moist, nares normal, lips/teeth normal uvula midline without oral pharyngeal erythema, exudate or swelling TMs normal bilaterally. No lymphangitis/lymphedema. HEAD/NECK normocephalic atraumatic, no facial trauma, neck is supple. RESPIRATORY respiratory effort normal, speaks in full sentences, no tripod position, no accessory muscle use. Lungs clear to auscultation without rhonchi, wheezes, rales CARDIAC Regular rate and rhythm, no edema. ABDOMINAL Soft, ND/NT. No evidence of fluid wave. No pulsatile masses on exam, rebound tenderness, Elena sign or pain over Mcburney's point. MUSCLES/EXTREMITIES No abnormal range of motion, no swelling. SKIN Warm, pink and dry. No rashes, dermatoses, petechiae or lesions. NEUROLOGICAL Speech is clear and appropriate. Normal level of consciousness. Gait and coordination are normal. 5/5 strength in all extremities. PSYCH Normal mood and affect. Judgement/competence is appropriate Coding Level of Care Code Est Pt Level 4 (08787) Diagnoses Anxiety F41.9 Eye discomfort H57.10 Time Spent (min) 30 Assessment & Plan Assessment & Plan (1) Anxiety: Code(s): F41.9 - Anxiety disorder, unspecified Category: Medical Plan: - The patient reports significant anxiety that worsens at night and is exacerbated when she is not distracted. - Her anxiety appears to heighten her awareness of physical symptoms. - A referral to Behavioral Health was provided for therapy and to develop coping strategies. - Discussed stress management techniques, including finding a hobby and the importance of self-care. (2) Eye discomfort: Code(s): H57.10 - Ocular pain, unspecified eye Category: Medical Plan: - The patient reports pressure around her left eye, internal itching, and a sen sation of a foreign body without pain, redness, discharge, or vision change. - The etiology is unclear but may be related to allergies or stress. - Recommended a trial of Claritin 10 mg as needed at night for a possible allergic component. - Advised to continue using Tylenol or ibuprofen as needed for the pressure. - Advised the patient to see an eye doctor for a comprehensive evaluation. Plan I informed the patient that I am not very concerned that her current eye pressure is a sign of a serious underlying condition, given the absence of pain, redness, discharge, or vision changes. I recommended she see an eye doctor for a comprehensive evaluation. We discussed the possibility of an allergic component, and I prescribed a trial of Claritin. We had an extensive discussion about the role of stress and anxiety in her life and how it can amplify physical symptoms. I provided a referral to Behavioral Health to help her manage her anxiety, which she was receptive to. I also encouraged self-care strategies, such as finding a new hobby. I scheduled a follow-up visit in two months to check on her progress. Orders: Referrals Behavioral Health Referral F41.9 - Anxiety disorder, unspecified Medications: New loratadine (Claritin) 10 mg PO DAILY PRN 14 tabs 0RF allergy symptoms
[2025-08-21 16:32] VITALS: BP 130/80; PULSE 80; TEMP 36.1; O2SAT 99; BMI 57.8
== END 2025-08-21 17:20 | disposition home or self-care (01) ==
PROVIDERS: PCP Internal Medicine; Visit Provider Internal Medicine
DX: F41.9 Anxiety disorder, unspecified (principal); H57.10 Ocular pain, unspecified eye

== ENCOUNTER → 2025-08-21 16:19 | Outpatient (BNVA) | payer OTHER, SELFPAY | PROVIDERS: PCP Internal Medicine; Visit Provider Internal Medicine | DX: H57.12 Ocular pain, left eye (principal); F41.9 Anxiety disorder, unspecified | CPT/HCPCS: 99212 ==

== ENCOUNTER 2025-08-24 08:46 | Emergency (ER) | payer OTHER, SELFPAY ==
[2025-08-24 08:57] VITALS: BP 179/83; PULSE 86; RESP 18; TEMP 36.7; O2SAT 100; BMI 57.0
--- NOTE | 2025-08-24 09:07 | ED_ITS ---
HPI - Headache General Chief Complaint: Headache Stated Complaint: Head pressure, tylenol not working Time Seen by Provider: 08/24/25 09:05 Source: patient and RN notes reviewed Mode of arrival: ambulatory Limitations: no limitations History of Present Illness ED Provider: Mini Ortega PA-C HPI Narrative: ? Onset 02/16 while at work: experienced two sharp pains to the back of the head (8/10 intensity, lasted seconds). ? Since then has persistent pressure sensation involving the entire head, worse on the left side and behind the ears; describes ear ?popping.? ? Current sensation is pressure, not pain (0?1/10). ? Associated symptoms: ear pressure/popping, intermittent itching sensation within head (not scalp), insomnia due to symptoms. ? 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 ? Denies nasal congestion, recent illness, photophobia, phonophobia, nausea, vomiting, head or neck trauma, falls, or car accidents. ? No relief with Tylenol or Advil taken on separate days. ? No personal history of migraines. ? Reports occasional springtime seasonal allergies but none currently. Review of Systems: ? General: Positive for difficulty sleeping. ? HEENT: Positive for head pressure, ear pressure/popping, intermittent itching inside head. Denies nasal congestion, photophobia, phonophobia. ? GI: Denies nausea, vomiting. ? Neuro: Denies prior migraines. ? Musculoskeletal: Denies neck trauma or pain. bP RECHECKED 140/72 MD elicited complaint: headache Related Data Previous Rx's ?Medication ?Instructions ?Recorded loratadine 10 mg tablet (Claritin) 10 mg PO DAILY PRN allergy 08/21/25 symptoms #14 tabs budesonide 32 mcg/actuation nasal 1 spray intranasal D AILY 30 days 08/24/25 spray #8.43 mL levocetirizine 5 mg tablet 5 mg PO DAILY 30 days #30 t abs 08/24/25 Allergies Allergy/AdvReac Type Severity Reaction Status Date / Time No Known Allergies Allergy Verified 08/24/25 09:01 Review of Systems Review of Systems: Yes all other systems are reviewed and are negative PMFSH Past Medical History Attestation statement: The following information was validated with the patient. Source: old records reviewed and nursing notes reviewed Medical History Lump of right breast Family history of diabetes mellitus Surgical History History of D&C Family History Family History Father Pulmonary embolism Mother Thyroid disease Gastroenteritis Bleeding hemorrhoids Other Family history of diabetes mellitus Social History Social History Household Members: Family and Children Housing: House Alcohol intake: current Alcohol intake frequency: holidays/special occasions only Alcohol type: beer Patient Tobacco Use Status: Never used Tobacco e-Cigarette/Vaping Use: Never Used Second Hand Smoke Exposure: No Advance Directives: No Advance Directives Information Provided: No Do you have a plan to hurt others: No Plan service: No Current occupational status: employed Current occupation: [employer] Current occupational exposures/hazards: No Cognitive needs: No Hearing needs: No Vision needs: No Physical Exam Exam: Exam: General: Appears in no acute distress, appears well nourished body habitus is morbidly obese, appears stated age. No septic or ill-appearing. Vitals reviewed normal, PMH/Social and Surgical hx reviewed including allergies and current medications. - reviewed for prior visits here Head: Normocephalic, no obvious trauma or skin lesions noted. Eyes: EOMI, conjunctiva and sclera clear ENMT: moist oral mucosa, CLOUDY BILATERAL TYMPANIC MEMBRANES SEROUS EFFUSION WITHOUT ANY BULGING NO CANAL EDEMA OR ERYTHEMA BOGGY NASAL TURBINATES WITHOUT ANY ERYTHEMA OR DISCHARGE Neck: trachea midline Cardiovascular: peripheral perfusion normal, Regular heart rate, regular rhythm Respiratory: no respiratory distress, lungs CTAB Abdomen: nondistended Extremities: warm and moving without difficulty Psych: Cooperative Neuro: Alert and oriented. Vital Signs: Vital Signs: Last Vital Signs Temp 98.1 F 08/24/25 09:13 Pulse 86 08/24/25 09:13 Resp 18 08/24/25 09:13 BP 140/72 H 08/24/25 09:13 Pulse Ox 100 08/24/25 09:13 O2 Del Method Room Air 08/24/25 09:13 BMI result Body Mass Index 57.0 Medical Decision Making Medical Decision Making MDM Narrative: Christen presented with persistent head and ear pressure since 02/16, not relieved by Tylenol or Advil, with no migraine features, trauma, or infection symptoms. On exam, fluid was noted behind both tympanic membranes and puffy nasal mucosa, without signs of acute infection. These findings are most consistent with eustachian tube dysfunction and sinus pressure likely due to chronic inflammation, which may be viral, weather-related, or allergic in origin. The plan is to initiate intranasal corticosteroid (Flonase) and oral non-sedating antihistamine, provide education regarding the benign nature of the condition and expected slow improvement, and review precautions for red flag symptoms such as sudden severe headache or new neurologic deficits. Citation: Current guidelines recommend watchful waiting for isolated Eustachian tube dysfunction/OME in adults, as most cases resolve spontaneously. Intranasal corticosteroids and oral antihistamines are not recommended unless allergic rhinitis is present. Problem #1: Eustachian tube dysfunction / sinus pressure?related headache Assessment: Chronic ear and head pressure with fluid behind TMs and puffy nasal mucosa. No infectious features. Current pain minimal but persistent pressure affecting sleep. Plan: - Start intranasal corticosteroid (Flonase) today; prescribed once daily per insurance, advised patient may use OTC dose twice daily for chronic inflammation as discussed. Citation: Intranasal corticosteroids are not recommended for isolated Eustachian tube dysfunction or OME in adults without allergic rhinitis per current guidelines. - Begin oral non-sedating antihistamine (e.g., cetirizine/loratadine) twice daily for several weeks to reduce sinus inflammation. Benadryl may be used at night if sedation acceptable. Citation: Current guidelines do not support oral antihistamines for isolated Eustachian tube dysfunction or OME in adults without allergic rhinitis; twice- daily dosing of cetirizine is not recommended. - Education: Condition may take weeks to improve; fluid may persist despite therapy. Reviewed benign nature and absence of infection. Discussed potential contributing factors (weather, viral process, allergens). Citation: Watchful waiting is first-line for isolated OME/Eustachian tube dysfunction in adults, as most cases resolve spontaneously. - Precautions: Advised ED evaluation for sudden onset ?worst headache ever,? severe worsening, or new concerning neurologic symptoms. - Follow-up: Routine follow-up with primary care; consider ENT or data examination clerk referral if no improvement. Differential Diagnosis Differential Diagnoses: The differential diagnosis associated with the presentation includes Admission/Observation Consideration of admission/observation: Escalation of care including admission/observation considered AOM/ AOE, bacterial sinusitis, pharyngitis, migraine (SAH unlikely not worse or of sudden onset), not consistent with TIA/ CVA either Prescription Management I considered prescription management with: Pain Medication and Antibiotic Chronic Conditions Patient?s care impacted by: Other Social Determinants Patient?s care significantly limited by Social Determinants of Health including: Other Social Determinant of Health Discharge Plan Discharge Clinical Impression: Acute serous otitis media of both ears, Acute dysfunction of both eustachian tubes Patient Disposition: Home, Self-Care Instructions: Fluid In The Ear (Serous Otitis Media) (ED) Additional Instructions: Serous Otitis Media is NOT an ear infection, instead, it is a build up of fluid behind your ear drum that causes sensation of pressure/blockage and at times can cause dizziness, crackling/popping sounds, and discomfort.? Fluid behind ear drums is a common condition associated with Allergies, Viral upper respiratory infections, sinus inflammation, and many other upper respiratory conditions.? This condition will typically resolve on its own within several days but may take up to 4-6 weeks. Infections may occur during this time as the fluid may develop bacterial growth. It is NOT appropriate to treat fluid behind ear drums with antibiotics without clear signs of infection.? There is no specific treatment for the fluid itself that is stuck behind ear drums and no bacterial infection.? Common things to try to relieve fluid from middle ear are: Decongestant medications, Antihistamines with decongestants (Zyrtec-D twice daily for 5 days), sour hard candies(war heads/lemon drops), Flonase, pinching nose and gently trying to blow out your nose.? Be sure to drink plenty of fluids and electrolytes, especially if taking over the counter meds. Prescriptions: New budesonide 32 mcg/actuation spray,non-aerosol 1 spray intranasal DAILY 30 Days Qty: 8.43 2RF Rx Instructions: administer into each nostril levocetirizine 5 mg tablet 5 mg PO DAILY 30 Days Qty: 30 2RF No Action loratadine [Claritin] 10 mg tablet 10 mg PO DAILY PRN (Reason: allergy symptoms) Qty: 14 0RF Referrals: [facility] [Provider Group, Ear, Nose, Throat] Clinical Impression: Acute dysfunction of both eustachian tubes; Acute serous otitis media of both ears Interventions: ED Discharge Assessment Last Done: 08/24/25 09:13 Discharge Date/Time: 08/24/25 09:15 Print Language: Kazakh
[2025-08-24 09:13] VITALS: BP 140/72; PULSE 86; RESP 18; TEMP 36.7; O2SAT 100
== END 2025-08-24 09:15 | disposition home or self-care (01) ==
PROVIDERS: Emergency Provider Emergency Medicine; PCP Internal Medicine
DX: H65.03 Acute serous otitis media, bilateral (principal); H68.103 Unspecified obstruction of Eustachian tube, bilateral; R51.9 Headache, unspecified
CPT/HCPCS: 99282